=== PATIENT | female | born 1950 | race Caucasian/White ===

== ENCOUNTER → 2025-07-23 | Outpatient (CLI) | payer MEDICARE, SELFPAY ==
--- OUTSIDE RECORDS SUMMARY | 2025-07-23 20:03 | XMS RPT_ITS | CCD ---
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, Jemma Unavailable Benita Rivas PA-C Unavailable GANTA, MARK Attending Unavailable GANTA, MARK Primary Care Unavailable GANTA, MARK Attending Unavailable SELF Referring Unavailable GANTA, MARK Primary Care Unavailable GANTA, MARK Referring Unavailable GANTA, MARK Primary Care Unavailable GANTA, MARK Attending Unavailable GANTA, MARK Primary Care Unavailable GANTA, MARK Referring Unavailable GANTA, MARK Primary Care Unavailable GANTA, MARK Referring Unavailable GANTA, MARK Primary Care Unavailable OLEG ARGUELLES Attending Unavailable GANTA, MARK Referring Unavailable GANTA, MARK Primary Care Unavailable SELF Referring Unavailable GANTA, MARK Primary Care Unavailable GANTA, MARK Attending Unavailable SELF Referring Unavailable GANTA, MARK Primary Care Unavailable Allergies Allergy Classification Reported Allergen(s) Allergy Type Date of Onset Reaction(s) Facility (20 sources) Acetaminophen; Translations: [ACETAMINOPHEN] Drug Allergy 11-04-2010 Swelling [facility] Work Phone: Medications Current Medications Medication Drug Class(es) Dates Sig (Normalized) Sig (Original) alendronic acid 70 mg oral tablet (20 sources) Bisphosphonate Start: 11-24-2022 End: 01-15-2025 take 1 tablet by mouth every week alendronate (FOSAMAX) 70 mg tablet Indications: Age-related osteoporosis without current pathological fracture TAKE 1 TABLET BY MOUTH EVERY WEEK ON AN EMPTY STOMACH DO NOT LIE DOWN FOR 30MIN 12 tablet 3 01/15/2025 Active Start: 09-14-2021 End: 08-17-2022 take 1 tablet by mouth every week alendronate (FOSAMAX) 70 mg tablet TAKE 1 TABLET BY MOUTH EVERY WEEK ON AN EMPTY STOMACH DO NOT LIE DOWN FOR 30MIN 12 tablet 0 08/17/2022 Active Comment on above: TAKE 1 TABLET BY ANN TH ONCE A WEEK WITH FULL GLASS OF WATER ON EMPTY STOMACH. DON'T LIE DOWN FOR 30 MINUTES TAKE 1 TABLET BY ANN TH EVERY WEEK ON AN EMPTY STOMACH DO NOT LIE DOWN FOR 30MIN Ascorbic Acid (20 sources) Vitamin C ascorbic acid (V ROSIE-C ORAL) Take by mouth. Active ascorbic acid (V ROSIE-C ORAL) Take by mouth. 0 Active Comment on above: Take by mouth. aspirin 81 mg delayed release oral tablet (20 sources) Platelet Aggregation Inhibitor, Nonsteroidal Anti-inflammatory Drug Start: 6 take 1 tablet by mouth once daily aspirin, enteric coated (ASPIRIN, ENTERIC COATED) 81 mg EC tablet Take 1 tablet by mouth once daily. 0 11/14/2015 Active Comment on above: Take 1 tablet by ann once daily. doxycycline hyclate 100 mg oral tablet (2 sources) Tetracycline-class Drug Start: 3 End: 3 take 1 tablet by mouth twice daily doxycycline (VIBRA-TABS) 100 mg tablet Take 1 tablet by mouth twice daily for 14 days. 28 tablet 0 03/10/2023 03/24/2023 Active Start: 12-20-2022 End: 12-20-2022 take 2 capsules by mouth once doxycycline hyclate (VIB RAMYCIN) 100 mg capsule Indications: Tick bite, unspecified site, initial encounter Take 2 capsules by mouth one time only for 1 dose. 2 capsule 0 12/20/2022 12/20/2022 Active Comment on above: [facility] dose. Take 1 tablet by ann th twice daily for 14 days. [id number] tylcyst 1-50-2.5-25-50 mg cap (20 sources) Start: 10-01-2022 [id number] cetylcyst 1-50-2.5-25-50 mg cap Take by mouth once daily. 10/01/2022 Active Start: 10-01-2022 [id number]-KVT-[id number] 1-50-2.5-25-50 mg cap Take by mouth once daily. 0 10/01/2022 Active Comment on above: Take by mouth once d aily. fluticasone propionate 0.05 mg/actuat metered dose nasal spray (20 sources) Corticosteroid Start: 04-01-20 take 2 spray(s) by mouth once daily fluticasone (FLONASE) 50 mcg/actuation nasal spray Indications: Allergic rhinitis, unspecified seasonality, unspecified trigger Use 2 Sprays in each nostril once daily. Rinse mouth after use. 1 Each 5 04/01/2023 Active Comment on above: Use 2 Sprays in each nostril once daily. Rinse mouth after use. lisinopril 20 mg oral tablet (20 sources) Angiotensin Converting Enzyme Inhibitor Start: 10-06-19 End: 10-03-19 24 take 1 tablet by mouth once daily lisinopril (ZESTRIL) 20 mg tablet Indications: Essential hypertension Take 1 tablet by mouth once daily. 90 tablet 3 10/03/2023 Active Comment on above: Take 1 tablet by ann th once daily. metoprolol tartrate 25 mg oral tablet (20 sources) beta-Adrenergic Sharmin Start: 04-03-20 End: 06-13-20 take 1 tablet by mouth twice daily metoprolol tartrate, short acting, (LOPRESSOR) 25 mg tablet Take 1 tablet by mouth two times a day. 180 tablet 1 03/15/2025 06/13/2025 Active Start: 10-06-2021 End: 04-03-2024 take 1 tablet by mouth once daily metoprolol succinate ER (TOPROL XL) 25 mg 24 hr tablet Indications: Essential hypertension Take 1 tablet by mouth once daily. 90 tablet 3 04/01/2023 04/03/2024 Discontinued Comment on above: Take 1 tablet by ann th once daily. rosuvastatin calcium 10 mg oral tablet (20 sources) HMG-CoA Reductase Inhibitor Start: 2 End: 5 take 1 tablet by mouth once daily at bedtime rosuvastatin (CRESTOR) 10 mg tablet Indications: Mixed hyperlipidemia Take 1 tablet by mouth daily at bedtime. 90 tablet 3 10/05/2024 Active Comment on above: TAKE 1 TABLET BY ANN TH EVERYDAY AT BEDTIME Take 1 tablet by ann th daily at bedtime. SELENIUM ORAL (20 sources) SELENIUM ORAL Ta ke by mouth. Active SELENIUM ORAL Ta ke by mouth. 0 Active Comment on above: Take by mouth. sulfamethoxazole 800 mg / trimethoprim 160 mg oral tablet (3 sources) Dihydrofolate Reductase Inhibitor Antibacterial, Sulfonamide Antimicrobial Start: 2 End: 2 take 1 tablet by mouth twice daily sulfamethoxazo le-trimethopri m (BACTRIM DS) 800-160 mg per tablet Take 1 tablet by mouth twice daily for 7 days. 14 tablet 0 02/10/2022 02/17/2022 Active Comment on above: Take 1 tablet by ann th twice daily for 7 days. Zinc (20 sources) Start: 2 take 1 tablet by mouth once daily Zinc 50 mg tab Take 1 tablet by mouth once daily. 10/06/2021 Active Start: 10-06-2021 take 1 tablet by ann th once daily Zinc 50 mg tab Take 1 tablet by mouth once daily. 0 10/06/2021 Active Comment on above: Take 1 tablet by ann th once daily. Completed/Discontinued Medications Medication Drug Class(es) Dates Sig (Normalized) Sig (Original) docusate sodium 100 mg oral tablet (20 sources) Start: 11-14-2015 End: 01-29-2025 take 1 tablet by mouth once daily Docusate Sodium 100 mg tab Take 100 mg by mouth once daily. 0 11/14/2015 01/29/2025 Discontinued Comment on above: Take 100 mg by mouth once daily. gpgvl-fx-9-dha-epa -phospho-ast (MEGARED OMEGA-3 KRILL OIL) 1,000-230-60 mg cap (12 sources) Start: 11-14-2015 take 3 capsules by mouth once daily fabxi-eh-9-dha-epa- phospho-ast (MEGARED OMEGA-3 KRILL OIL) 1,000-230-60 mg cap Take 60 mg by mouth once daily. 0 11/14/2015 Active Comment on above: Take 60 mg by mouth once daily. ghgyr-bm-4-dha-epa -phospho-ast 1,000-230-60 mg cap (5 sources) Start: 11-14-2015 End: 04-01-2023 take 1 capsule by mouth once daily hhjei-eq-3-dha-epa- phospho-ast 1,000-230-60 mg cap Take 60 mg by mouth once daily. 0 11/14/2015 04/01/2023 Discontinued Start: 11-14-2015 take 1 capsule by mouth once daily nlmbs-lk-3-ctq-vvn-qgztvcx-ast 1,000-230 -60 mg cap Take 60 mg by mouth once daily. 0 11/14/2015 Active Comment on above: Take 60 mg by mouth once daily. Magnesium (17 sources) Start: 11-14-2015 End: 04-01-2023 Magnesium 200 mg tab Take 250 mg by mouth. 0 11/14/2015 04/01/2023 Discontinued Start: 11-14-2015 Magnesium 200 mg tab Take 250 mg by mouth. 0 11/14/2015 Active Comment on above: Take 250 mg by mouth . 24 hr niacin 500 mg extended release oral tablet (20 sources) Nicotinic Acid Start: 11-14-2015 End: 01-15-2025 take 1 tablet by mouth once daily at bedtime niacin ER (NIASPAN) 500 mg tablet Take 1 tablet by mouth daily at bedtime. 0 11/14/2015 01/15/2025 Discontinued Comment on above: Take 1 tablet by ann th daily at bedtime. psyllium (KONSYL) packet (20 sources) Start: 11-14-2015 End: 01-29-2025 take 1 dose by mouth once daily psyllium (KONSYL) packet Take 1 Packet by mouth once daily. 0 11/14/2015 01/29/2025 Discontinued Start: 11-14-2015 take 1 dose by mouth once verito y psyllium (KONSYL) packet Take 1 Packet by mouth once daily. 0 11/14/2015 Active Comment on above: Take 1 Packet by ann th once daily. red yeast rice 600 mg oral capsule (20 sources) Start: 11-14-2015 End: 01-15-2025 take 1 capsule by mouth once daily Red Yeast Rice Extract 600 mg cap Take 1 capsule by mouth once daily. 0 11/14/2015 01/15/2025 Discontinued Comment on above: Take 1 capsule by mo [facility] once daily. Zinc Acetate (17 sources) End: 04-01-2023 ZINC ACETATE ORAL Take by mouth. 0 04/01/2023 Discontinued ZINC ACETATE ORA L Take by mouth. 0 Active Comment on above: Take by mouth. Problems Active Problems Problem Classification Problem Date Documented Da te Episodic/Chronic Diseases of mouth; excluding dental (1 source) Geographic tongue; Translations: [Geographic tongue] 03-10-2023 Episodic Disorders of lipid metabolism (20 sources) Mixed hyperlipidemia; Translations: [Mixed hyperlipidemia] Onset: 06-10-2018 06-10-2018 Chronic E Codes: Natural/environment (1 source) Tick bite; Translations: [Bitten or stung by nonvenomous insect and other nonvenomous arthropods, initial encounter] Episodic Essential hypertension (20 sources) Essential hypertension; Translations: [Essential (primary) hypertension] Onset: 11-14-2015 11-14-2015 Chronic Genitourinary symptoms and ill-defined conditions (2 sources) Dysuria; Translations: [Dysuria] Episodic Nutritional deficiencies (3 sources) Vitamin D deficiency; Translations: [Vitamin D deficiency, unspecified] Onset: 01-07-2025 07-16-2024 Chronic Osteoarthritis (19 sources) Osteoarthritis of knee; Translations: [Osteoarthritis of knee, unspecified] Onset: 05-01-2024 05-01-2024 Chronic Osteoporosis (20 sources) Osteoporosis; Translations: [Age-related osteoporosis without current pathological fracture] Onset: 02-28-2017 Resolved: 04-01-2023 02-28-2017 Chronic Other bone disease and musculoskeletal deformities (20 sources) Osteopenia; Translations: [Other specified disorders of bone density and structure, multiple sites] Onset: 04-01-2023 04-01-2023 Episodic Other bone disease and musculoskeletal deformities (1 source) Other specified disorders of bone density and structure, unspecified site; Translations: [Osteopenia, unspecified location] Onset: 04-17-2025 Episodic Other gastrointestinal disorders (1 source) Constipation; Translations: [Constipation, unspecified] 10-03-2023 Episodic Other hereditary and degenerative nervous system conditions (1 source) Impaired cognition; Translations: [Mild cognitive impairment, so stated] 04-17-2025 Chronic Other hereditary and degenerative nervous system conditions (1 source) Mild cognitive impairment, so stated; Translations: [Mild cognitive impairment] Onset: 04-17-2025 Chronic Other non-traumatic joint disorders (2 sources) Pain in left knee; Translations: [Pain in joint, lower leg] 04-03-2024 Episodic Other nutritional; endocrine; and metabolic disorders (4 sources) Hypercalcemia; Translations: [Hypercalcemia] 04-01-2023 Chronic Other screening for suspected conditions (not mental disorders or infectious disease) (7 sources) Patient encounter status; Translations: [Encounter for screening mammogram for malignant neoplasm of breast] Episodic Other skin disorders (1 source) Eruption; Translations: [Rash and other nonspecific skin eruption] 03-10-2023 Episodic Other upper respiratory disease (2 sources) Allergic rhinitis; Translations: [Allergic rhinitis, unspecified] 04-01-2023 Chronic Residual codes; unclassified (1 source) Sleep apnea; Translations: [Sleep apnea, unspecified] 04-17-2025 Chronic Residual codes; unclassified (1 source) Sleep apnea, unspecified; Translations: [Sleep apnea, unspecified type] Onset: 04-17-2025 Chronic Residual codes; unclassified (2 sources) Memory impairment; Translations: [Other amnesia] 07-16-2024 Episodic Residual codes; unclassified (1 source) At risk of polypharmacy; Translations: [Other specified personal risk factors, not elsewhere classified] 01-29-2025 Episodic Urinary tract infections (1 source) Urinary tract infectious disease; Translations: [Urinary tract infection, site not specified] Episodic Past or Other Problems Problem Classification Problem Date Documented Da te Episodic/Chronic Other non-traumatic joint disorders (14 sources) Shoulder pain; Translations: [Pain in left shoulder] Onset: 05-27-2016 05-27-2016 Episodic Other non-traumatic joint disorders (20 sources) Pain in left shoulder; Translations: [Pain in joint, shoulder region] Onset: 05-27-2016 05-27-2016 Episodic Residual codes; unclassified (1 source) Other specified personal risk factors, not elsewhere classified; Translations: [At risk for polypharmacy] Onset: 01-29-2025 Episodic Results Test Name Value Interpretation Reference Range Facility BD DXA - AXIAL SKELETONon BD DXA - AXIAL SKELETON * * *Final Report* * * DATE OF EXAM: May 09 2025 9:21AM WRB [id number] - DXA - AXIAL SKELETON B / PROCEDURE REASON: M85.80 * * * * Physician Interpretation * * * * EXAMINATION: DXA BONE DENSITOMETRY BD DXA - AXIAL SKELETON, BD DXA TRABECLR BONE SCORE (TBS) PATIENT DEMOGRAPHICS: Age: 75 years, Gender: Female SCANNER INFORMATION: DXA Model: [employer] - VUELOGIC C 19229 Date Scanned: 05/09/2025 9:21 AM CLINICAL HISTORY: DIAGNOSTIC M85.80. RISK FACTORS FOR OSTEOPOROSIS AND ASSOCIATED FRACTURES REPORTED BY THIS PATIENT: Please refer to Bone Health Questionnaire in the EMR CURRENT THERAPY: Please refer to Bone Health Questionnaire in the EMR TECHNICAL LIMITATIONS: RESULTS: Lumbar spine (L1, L2, L3, L4): 0.805 g/cm2, T-score -2.2 , Z-score 0.3 Lumbar spine: 2022 : 0.799 g/cm2 No statistically significant change Right Femoral Neck: 0.528 g/cm2, T-score -2.9 , Z-score -0.7 Right Femoral Neck: 2022 : 0.587 g/cm2 Statistically significant decrease Right Total Hip: 0.662 g/cm2, T-score -2.3 , Z-score -0.4 Right Total Hip: 2022 : 0.682 g/cm2 No statistically significant change Left Femoral Neck: 0.587 g/cm2, T-score -2.4 , Z-score -0.2 Left Femoral Neck: 2022 : 0.605 g/cm2 No statistically significant change Left Total Hip: 0.689 g/cm2, T-score -2.1 , Z-score -0.2 Left Total Hip: 2022 : 0.722 g/cm2 No statistically significant change CHANGE IS STATISTICALLY SIGNIFICANT IN THE SPINE OR HIP IF GREATER THAN OR EQUAL TO 0.04 g/cm2 VERTEBRAL FRACTURE ASSESSMENT Not performed. TRABECULAR BONE ASSESSMENT TBS score: 1.313 Bone micro-architecture: Normal (> 1.310) IMPRESSION: THE LOWEST T-SCORE IS -2.9 IN THE RIGHT HIP 1) DIAGNOSIS (based on BMD alone): OSTEOPOROSIS Caution: Medical conditions other than osteoporosis may cause low bone density, such as osteomalacia or renal osteodystrophy. Clinical correlation is necessary. 2) FRACTURE RISK (Based on TBS adjusted FRAX): 10-year absolute fracture risk: - major osteoporotic fracture = 19 % - hip fracture = 7.2 % - A diagnosis of Osteoporosis, a 10 year probability of hip fracture greater than or equal to 3% or a 10 year probability of any major osteoporosis-related fracture greater than or equal to 20% should be considered for treatment. - DXA scanner generated FRAX calculations may slightly differ from online FRAX calculations due to differences in software versions. - All recommendations and calculations are to be considered as guidelines and should not replace sound clinical judgement - Caution: Fracture risk may be increased independent of BMD in patients with corticosteroid use, age greater than 65 years, or a history of prior fragility fracture. RECOMMENDATIONS: Follow-up in 2 years or as clinically indicated. Patients that are taking corticosteroids, are transplant recipients or have hyperparathyroidism should have annual follow-up. Follow-up scans should always be done on the same machine for accurate comparison. FOR MORE INFORMATION ABOUT DIAGNOSIS AND TREATMENT: [facility]:? www.ccf.org/arthritis/ osteo National Osteoporosis Foundation:? www.nof.org International Society of Clinical Densitometry www.iscd.org Fur Matcher: FAMILIA Transcribe Date/Time: May 12 2025 5:40P Dictated by : MICHELLE WERNER MD This examination was interpreted and the report reviewed and electronically signed by: MICHELLE WERNER MD on May 12 2025 5:45PM EST [id number] Normal [facility] BD DXA TRABECLR BONE SCORE ( TBS)on 05-09-2025 BD DXA TRABECLR BONE SCORE (TBS) * * *Final Report* * * DATE OF EXAM: May 09 2025 9:21AM B 0801 - BD DXA TRABECLR BONE SCORE (TBS) / PROCEDURE REASON: M85.80 * * * * Physician Interpretation * * * * EXAMINATION: DXA BONE DENSITOMETRY BD DXA - AXIAL SKELETON, BD DXA TRABECLR BONE SCORE (TBS) PATIENT DEMOGRAPHICS: Age: 75 years, Gender: Female SCANNER INFORMATION: DXA Model: [employer] - VUELOGIC C 48066 Date Scanned: 05/09/2025 9:21 AM CLINICAL HISTORY: DIAGNOSTIC M85.80. RISK FACTORS FOR OSTEOPOROSIS AND ASSOCIATED FRACTURES REPORTED BY THIS PATIENT: Please refer to Bone Health Questionnaire in the EMR CURRENT THERAPY: Please refer to Bone Health Questionnaire in the EMR TECHNICAL LIMITATIONS: RESULTS: Lumbar spine (L1, L2, L3, L4): 0.805 g/cm2, T-score -2.2 , Z-score 0.3 Lumbar spine: 2022 : 0.799 g/cm2 No statistically significant change Right Femoral Neck: 0.528 g/cm2, T-score -2.9 , Z-score -0.7 Right Femoral Neck: 2022 : 0.587 g/cm2 Statistically significant decrease Right Total Hip: 0.662 g/cm2, T-score -2.3 , Z-score -0.4 Right Total Hip: 2022 : 0.682 g/cm2 No statistically significant change Left Femoral Neck: 0.587 g/cm2, T-score -2.4 , Z-score -0.2 Left Femoral Neck: 2022 : 0.605 g/cm2 No statistically significant change Left Total Hip: 0.689 g/cm2, T-score -2.1 , Z-score -0.2 Left Total Hip: 2022 : 0.722 g/cm2 No statistically significant change CHANGE IS STATISTICALLY SIGNIFICANT IN THE SPINE OR HIP IF GREATER THAN OR EQUAL TO 0.04 g/cm2 VERTEBRAL FRACTURE ASSESSMENT Not performed. TRABECULAR BONE ASSESSMENT TBS score: 1.313 Bone micro-architecture: Normal (> 1.310) IMPRESSION: THE LOWEST T-SCORE IS -2.9 IN THE RIGHT HIP 1) DIAGNOSIS (based on BMD alone): OSTEOPOROSIS Caution: Medical conditions other than osteoporosis may cause low bone density, such as osteomalacia or renal osteodystrophy. Clinical correlation is necessary. 2) FRACTURE RISK (Based on TBS adjusted FRAX): 10-year absolute fracture risk: - major osteoporotic fracture = 19 % - hip fracture = 7.2 % - A diagnosis of Osteoporosis, a 10 year probability of hip fracture greater than or equal to 3% or a 10 year probability of any major osteoporosis-related fracture greater than or equal to 20% should be considered for treatment. - DXA scanner generated FRAX calculations may slightly differ from online FRAX calculations due to differences in software versions. - All recommendations and calculations are to be considered as guidelines and should not replace sound clinical judgement - Caution: Fracture risk may be increased independent of BMD in patients with corticosteroid use, age greater than 65 years, or a history of prior fragility fracture. RECOMMENDATIONS: Follow-up in 2 years or as clinically indicated. Patients that are taking corticosteroids, are transplant recipients or have hyperparathyroidism should have annual follow-up. Follow-up scans should always be done on the same machine for accurate comparison. FOR MORE INFORMATION ABOUT DIAGNOSIS AND TREATMENT: [facility] Disease:? www.ccf.org/arthritis/ osteo National Osteoporosis Foundation:? www.nof.org International Society of Clinical Densitometry www.iscd.org Fur Matcher: FAMILIA Transcribe Date/Time: May 12 2025 5:40P Dictated by : MICHELLE WERNER MD This examination was interpreted and the report reviewed and electronically signed by: MICHELLE WERNER MD on May 12 2025 5:45PM EST [id number] -[id number] Normal [facility] CNOVon 04-17-2025 CNOV Office Visit (GERIWR ) ERINN BENSON ([id number]) 1950 F Date Time Provider Department 04/17/25 1:30 PM MARK YEAGER During your visit today, we recorded the following information about you: Pulse Respiration Blood pressure Weight Normal [facility] CNOVon 01-29-2025 CNOV Office Visit (INTMWS ) ERINN BENSON ([id number]) 1950 F Date Time Provider Department 01/29/25 8:20 AM MARK YEAGER During your visit today, we recorded the following information about you: Pulse Respiration Blood pressure 64/minute 16/minute 135/79 Mark Yeager MD 01/29/2025 8:38 AM Signed We discussed your medications and supplements: - You are currently taking the following medications: - Crestor 10 mg daily. Please ensure you are using the correct, updated bottle for this medication. - Metoprolol 25 mg twice daily. You will now take this twice a day instead of once a day. - Lisinopril 20 mg daily. Continue taking this as prescribed. - Alendronate 70 mg once weekly. Continue taking this as prescribed. - Supplements: - CoQ10 100 mg daily: Continue as is. - Magnesium glycinate 300 mg: Shift this to nighttime, as it may help with sleep. - B-complex, Vitamin C, and Vitamin D daily: Continue as is. - Zinc: You are taking two sources of zinc. Ensure the total amount is appropriate and continue as is. - Calcium and turmeric/curcumin: Continue as is. - You have discontinued the following: - Docusate (stool softener) and psyllium husk. You are using Miralax instead for bowel regularity. We discussed medication organization: - Please separate old or duplicate medication bottles from your current medications to avoid confusion. Discard old bottles when you return home. We discussed prescription refills: - If you are 10 days to 2 weeks away from running out of any medication, please call our office, and we will send in your refills promptly. No additional follow-up or testing was discussed during this visit. Please contact our office if you have any further questions or concerns. Mark Yeager MD 01/29/2025 11:11 AM Signed Reason for Visit Follow up HPI Fabienne Benson is a 75-year-old female presenting for medication reconciliation and adherence check. Fabienne has been taking Crestor 10 mg daily for the past couple of years, but has been transferring new medications into old bottles. She is also taking metoprolol 25 mg twice daily, lisinopril 20 mg daily, and alendronate 70 mg once a week. She was previously taking metoprolol 25 mg once daily, but has recently increased to twice daily. She is not taking docusate or psyllium husk, but is using Miralax. She is also taking several supplements, including CoQ10 100 mg, magnesium glycinate 300 mg at night, B-complex, vitamin C, vitamin D daily, calcium, zinc, turmeric, and curcumin. She is taking two different zinc supplements, one of which contains a small amount of zinc. She has been taking magnesium glycinate in the morning, but was advised to take it at night to help with sleep. Social History Tobacco Use Smoking status: Never Smokeless tobacco: Never Substance Use Topics Alcohol use: No Drug use: No Past medical history, appointments, medications, allergies reviewed. Pertinent Lab/Diagnostic Studies are reviewed and discussed today Current Outpatient Medications: alendronate (FOSAMAX) 70 mg tablet rosuvastatin (CRESTOR) 10 mg tablet metoprolol tartrate, short acting, (LOPRESSOR) 25 mg tablet lisinopril (ZESTRIL) 20 mg tablet fluticasone (FLONASE) 50 mcg/actuation nasal spray [id number] etylcyst 1-50-2.5-25-50 mg cap Zinc 50 mg tab ascorbic acid (CODY-C ORAL) SELENIUM ORAL aspirin, enteric coated (ASPIRIN, ENTERIC COATED) 81 mg EC tablet Health Maintenance DTaP,Tdap,Td Vaccine(1 - Tdap) BP Controlled (<130/80) Advance Directive Discussion@ Review Of Systems Physical Exam BP 135/79 Pulse 64 Resp 16 GENERAL: NAD, alert and oriented SKIN: unremarkable, no rash or skin lesions. HEAD: normocephalic EYES: PERRLA, EOMI, conjunctiva clear LUNGS: Clear to auscultation bilaterally, no wheezes/rhonchi/rales. HEART: Regular rate and rhythm, no murmurs. No ectopy. EXTREMITIES: Normal, No deformities, No skin discoloration, No edema. NEURO: Awake, alert and oriented x3, cranial nerves II-XII grossly intact, normal gait, no involuntary motions Assessment and Plan 1. At risk for polypharmacy (Z91.89) Patient is taking multiple medications including Crestor 10 mg daily, metoprolol 25 mg BID, lisinopril 20 mg daily, and alendronate 70 mg weekly. Additionally, patient is taking several supplements including CoQ10 100 mg, magnesium glycinate 300 mg, B-complex, vitamin C, vitamin D, calcium, zinc, turmeric, and curcumin. Patient was previously taking docusate and psyllium husk but has discontinued these and is now using Miralax. - Educated patient on the importance of medication adherence and proper storage of medications. - Advised patient to discard old medication bottles to avoid confusion. - Recommended taking magnesium glycinate at night to aid sleep. - Instructed patient to (more content not included)... Normal [facility] CNOVon 01-15-2025 CNOV Office Visit (INTMWS ) JESSICAERINN ([id number]) 1950 F Date Time Provider Department 01/15/25 8:40 AM MARK YEAGER INTMWS During your visit today, we recorded the following information about you: Pulse Blood pressure Weight Height 64/minute 143/85 72 kg 1.702 m Mark Yeager MD 01/15/2025 8:55 AM Addendum BONE MINERAL DENSITY PATIENT INSTRUCTIONS Bone mineral density testing measures the amount of calcium in certain parts of your bones. This information determines how strong your bones are. The test is used to detect osteoporosis, a disease in which the bone's mineral content and density are low, increasing a person's risk of fractures. The lumbar spine (lower back) and the hip are the skeletal sites usually examined. For the test, remember that: 1. You cannot take this test if you are . 2. Eat a normal diet on the day of the test. 3. Take your medications as you normally would. 4. DO NOT take calcium supplements (such as Tums) for 24 hours before the test. 5. On the day of the test, leave valuables (jewelry or credit cards) at home. 6. The test should be performed prior to oral, rectal or IV contrast studies, or at least 7 days after any of these studies. For the test, you may be asked to wear a hospital gown. You will lie on your back, on a padded table, in a comfortable position. Generally, you can resume your usual activities immediately. Mark Yeager MD 01/15/2025 1:10 PM Signed Reason for Visit Follow up HPI Fabienne is a 75-year-old female with a history of osteoporosis, HTN, and HLD, presenting for follow-up. Fabienne reports that she has not been taking her weekly alendronate for the past couple of months due to running out of the medication. She expresses concern about the potential risk of fractures due to this lapse in medication adherence. She is unsure of the names of her medications but reports taking a cholesterol medication nightly and metoprolol in the morning, though she was unaware that she was supposed to take metoprolol BID. She denies taking niacin or red yeast rice extract. She is also taking lisinopril. She reports a recent weight increase, which she attributes to her enjoyment of food. She notes that her weight typically fluctuates with the seasons, increasing in the winter and decreasing in the summer. She remains physically active, engaging in regular walking and using a small trampoline for exercise, particularly during the summer months. She has not yet completed her living will or advance directives, despite receiving the necessary paperwork. She is scheduled for a memory assessment in approximately 3 months and expresses some apprehension about the evaluation, stating, Just don't try to tell me I'm losing my brains because I don't want to know about it. Social History Tobacco Use Smoking status: Never Smokeless tobacco: Never Substance Use Topics Alcohol use: No Drug use: No Past medical history, appointments, medications, allergies reviewed. Pertinent Lab/Diagnostic Studies are reviewed and discussed today Current Outpatient Medications: rosuvastatin (CRESTOR) 10 mg tablet metoprolol tartrate, short acting, (LOPRESSOR) 25 mg tablet lisinopril (ZESTRIL) 20 mg tablet fluticasone (FLONASE) 50 mcg/actuation nasal spray [id number] etylcyst 1-50-2.5-25-50 mg cap Zinc 50 mg tab ascorbic acid (CODY-C ORAL) aspirin, enteric coated (ASPIRIN, ENTERIC COATED) 81 mg EC tablet alendronate (FOSAMAX) 70 mg tablet SELENIUM ORAL Docusate Sodium 100 mg tab psyllium (KONSYL) packet Health Maintenance DTaP,Tdap,Td Vaccine(1 - Tdap) BP Controlled (<130/80) Advance Directive Discussion@ Review Of Systems No current subjective symptoms were explicitly reported during the encounter. No positive or negative symptoms were mentioned for any body system. Therefore, there are no ROS findings to list. Physical Exam BP 143/85 Pulse 64 Ht 170.2 cm (5' 7) Wt 72 kg (158 lb 11.7 oz) SpO2 98% BMI 24.86 kg/m? GENERAL: NAD, alert and oriented. SKIN: Unremarkable, no rash or skin lesions. HEAD: Normocephalic. EYES: PERRLA, EOMI, conjunctiva clear. EARS: External ears normal, canals clear, TM's normal. NOSE/SINUSES: Nares normal. Septum midline. OROPHARYNX: Lips, mucosa, and tongue normal, good dentition. No oral lesions noted. NECK: Supple, no lymphadenopathy, normal thyroid, no carotid bruits. LUNGS: Clear to auscultation bilaterally, no wheezes/rhonchi/rales. HEART: Regular rate and rhythm, no murmurs. No ectopy. EXTREMITIES: Normal, no deformities, no skin discoloration, no edema. NEURO: Awake, alert and oriented x3, cranial nerves II-XII grossly intact, normal gait, no involuntary motions. Labs: - eGFR: 77 - Vitamin D: 50s - Cholesterol: Normal - Blood c (more content not included)... Normal [facility] 25(OH)D3 [facility] 2024 25-hydroxyvitamin D3 [Mass/Vol] 56.8 ng/mL Normal 31.0-80.0 [facility] Comment on above: Order Comment: Speci men Type: BLOOD SPECIMENOrdering Facility: [facility] Address: [address] [place] [address] Result Comment: Clas sification of 25 [place] Vitamin D status: Deficiency/Insufficiency: < or = 30 ng/ml. Sufficiency/Optimal Levels: 31-80 ng/mL Toxicity: > 100 ng/mL. Test performed by chemiluminescent immunoassay. Performed By: #### 1 989-3 ####[facility] LABCLIA [id number] [place] [address] [place] CBC panel Auto (Bld)on 01-07 Erythrocyte distribution width (RBC) [Ratio] 13.2 % Normal 11.5-15.0 [facility] Comment on above: Order Comment: Speci men Type: BLOOD SPECIMENOrdering Facility: [facility] Address: [address] [place] [address] Performed By: #### 5 8410-2 ####[facility] LABCLIA [id number] [place] [address] [place] Hematocrit (Bld) [Volume fraction] 44.9 % Normal 36.0-46.0 [facility] Comment on above: Order Comment: Speci men Type: BLOOD SPECIMENOrdering Facility: [facility] Address: [address] [place] [address] Performed By: #### 5 8410-2 ####[facility] LABIA [id number] [place] [address] [place] Hemoglobin (Bld) [Mass/Vol] 14.5 g/dL Normal 11.5-15.5 [facility] Comment on above: Order Comment: Speci men Type: BLOOD SPECIMENOrdering Facility: [facility] Address: [address] [place] [address] Performed By: #### 5 8410-2 ####[facility] LABIA [id number] [place] [address] [place] MCH (RBC) [Entitic mass] 30.0 pg Normal 26.0-34.0 [facility] Comment on above: Order Comment: Speci men Type: BLOOD SPECIMENOrdering Facility: [facility] Address: [address] [place] [address] Performed By: #### 5 8410-2 ####[facility] LABIA [id number] [place] [address] [place] MCHC (RBC) [Mass/Vol] 32.3 g/dL Normal 30.5-36.0 [facility] Comment on above: Order Comment: Speci men Type: BLOOD SPECIMENOrdering Facility: [facility] Address: [address] [place] [address] Performed By: #### 5 8410-2 ####[facility] LABCLIA [id number] [place] [address] [place] MCV (RBC) [Entitic vol] 92.8 fL Normal 80.0-100.0 [facility] Comment on above: Order Comment: Speci men Type: BLOOD SPECIMENOrdering Facility: [facility] Address: [address] [place] [address] Performed By: #### 5 8410-2 ####[facility] LABCLIA [id number] [place] [address] [place] Nucleated RBC (Bld) [#/Vol] 10*3/uL Normal <0.01 [facility] Comment on above: Order Comment: Speci men Type: BLOOD SPECIMENOrdering Facility: [facility] Address: [address] [place] [address] Performed By: #### 5 8410-2 ####[facility] LABCLIA [id number] [place] [address] [place] Platelet mean volume (Bld) [Entitic vol] 10.6 fL Normal 9.0-12.7 [facility] Comment on above: Order Comment: Speci men Type: BLOOD SPECIMENOrdering Facility: [facility] Address: [address] [place] [address] Performed By: #### 5 8410-2 ####[facility] LABCLIA [id number] [place] [id number] [place] Platelets (Bld) [#/Vol] 262 10*3/uL Normal 150-400 [facility] Comment on above: Order Comment: Speci men Type: BLOOD SPECIMENOrdering Facility: [facility] Address: [address] [place] [address] Performed By: #### 5 8410-2 ####[facility] LABCLIA [id number] [address] [address] [place] RBC (Bld) [#/Vol] 4.84 10*6/uL Normal 3.90-5.20 [facility] Comment on above: Order Comment: Speci men Type: BLOOD SPECIMENOrdering Facility: [facility] Address: [address] [place] [address] Performed By: #### 5 8410-2 ####[facility] LABCLIA [id number] [address] [address] [place] WBC (Bld) [#/Vol] 7.94 10*3/uL Normal 3.70-11.00 [facility] Comment on above: Order Comment: Speci men Type: BLOOD SPECIMENOrdering Facility: [facility] Address: [address] [place] [address] Performed By: #### 5 8410-2 ####[facility] LABIA [id number] [place] [id number] [place] Comprehensive metabolic 2000 panelon 01-07-2025 Albumin [Mass/Vol] 4.2 g/dL Normal 3.9-4.9 [facility] Comment on above: Order Comment: Speci men Type: BLOOD SPECIMENOrdering Facility: [facility] Address: [address] [place], [place] [address] Performed By: #### 2 4331-1, 39396-4 ####[facility] LABIA [id number] [address] [address] [place] ALP [Catalytic activity/Vol] 82 U/L Normal 34-123 [facility] Comment on above: Order Comment: Speci men Type: BLOOD SPECIMENOrdering Facility: [facility] Address: [address] [place], [place] [address] Performed By: #### 2 4331-1, 74511-8 ####[facility] LABCLIA [id number] [place] [id number], [place] [address] [place] ALT [Catalytic activity/Vol] 16 U/L Normal 7-38 [facility] Comment on above: Order Comment: Speci men Type: BLOOD SPECIMENOrdering Facility: [facility] Address: [address] [place], [place] [address] Performed By: #### 2 4331-1, ####[facility] LABCLIA [id number] [facility] [address] [place] [address] [place] Anion gap [Moles/Vol] 11 mmol/L Normal 8-15 [facility] Comment on above: Order Comment: Speci men Type: BLOOD SPECIMENOrdering Facility: [facility] Address: [address] [place] [address] Performed By: #### 2 4331-1, ####[facility] LABCLIA [id number] [address], [facility] [address] [place] AST [Catalytic activity/Vol] 23 U/L Normal 13-35 [facility] Comment on above: Order Comment: Speci men Type: BLOOD SPECIMENOrdering Facility: [facility] Address: [address] [place], [place] [address] Performed By: #### 2 4331-1, ####[facility] LABCLIA [id number] [facility] [address] [place] [address] [place] Bilirubin [Mass/Vol] 0.5 mg/dL Normal 0.2-1.3 [facility] Comment on above: Order Comment: Speci men Type: BLOOD SPECIMENOrdering Facility: [facility] Address: [address] [place] [address] Performed By: #### 2 4331-1, ####[facility] LABCLIA [id number] [facility] [address] [place] [address] [place] Calcium [Mass/Vol] 10.2 mg/dL Normal 8.5-10.2 [facility] Comment on above: Order Comment: Speci men Type: BLOOD SPECIMENOrdering Facility: [facility] Address: [address] [place], [place] [address] Performed By: #### 2 4331-1, 54982-7 ####[facility] LABCLIA [id number] [address] [address] [place] Chloride [Moles/Vol] 103 mmol/L Normal 98-107 [facility] Comment on above: Order Comment: Speci men Type: BLOOD SPECIMENOrdering Facility: [facility] Address: [address] [place] [address] Performed By: #### 2 4331-1, ####[facility] LABIA [id number] [place] [address] [place] CO2 [Moles/Vol] 25 mmol/L Normal 22-30 [facility] Comment on above: Order Comment: Speci men Type: BLOOD SPECIMENOrdering Facility: [facility] Address: [address] [place] [address] Performed By: #### 2 4331-1, 18598-6 ####[facility] LABIA [id number] [place] [address] [place] Creatinine [Mass/Vol] 0.78 mg/dL Normal 0.58-0.96 [facility] Comment on above: Order Comment: Speci men Type: BLOOD SPECIMENOrdering Facility: [facility] Address: [address] [place] [address] Performed By: #### 2 4331-1, ####[facility] LABIA [id number] [place] [id number] [place] Creatinine and Glomerular filtration rate.predicted panel (S/P/Bld) 79 mL/min/1.73m??? Normal >=60 [facility] Comment on above: Order Comment: Speci men Type: BLOOD SPECIMENOrdering Facility: [facility] Address: [address] [place], [place] [address] Result Comment: Letty mated Glomerular Filtration Rate (eGFR) is calculated using the 2020 CKD-EPI creatinine equation. This equation utilizes serum creatinine, sex, and age as parameters. The creatinine assay has traceable calibration to isotope dilution-mass spectrometry. Refer to KDIGO guidelines for clinical interpretation. In patients with unstable renal function, e.g. those with acute kidney injury, the eGFR may not accurately reflect actual GFR. Performed By: #### 2 4331-1, 56698-0 ####[facility] LABIA [id number] [place] [address] [place] Glucose [Mass/Vol] 93 mg/dL Normal 74-99 [facility] Comment on above: Order Comment: Cora vasquez Type: BLOOD SPECIMENOrdering Facility: [facility] Address: [address] [place] [address] Result Comment: The [place] Diabetes Association (ADA) provides guidance for cutoff values for fasting glucose and random glucose. The ADA defines fasting as no caloric intake for at least 8 hours. Fasting plasma glucose results between 100 to 125 mg/dL indicate increased risk for diabetes (prediabetes). Fasting plasma glucose results greater than or equal to 126 mg/dL meet the criteria for diagnosis of diabetes. In the absence of unequivocal hyperglycemia, results should be confirmed by repeat testing. In a patient with classic symptoms of hyperglycemia or hyperglycemic crisis, random plasma glucose results greater than or equal to 200 mg/dL meet the criteria for diagnosis of diabetes. Reference: Standards of Medical Care in Diabetes 2016, [place] [employer] Association. Diabetes Care. 2016.39(Suppl 1). Performed By: #### 2 4331-, 84874-9 ####[facility] LABIA [id number] [address] [address] [place] Potassium [Moles/Vol] 4.7 mmol/L Normal 3.7-5.1 [facility] Comment on above: Order Comment: Cora vasquez Type: BLOOD SPECIMENOrdering Facility: [facility] Address: [address] [place] [address] Performed By: #### 2 4331-, 13530-2 ####[facility] LABCLIA [id number] [address] [place] [address] [place] Protein [Mass/Vol] 7.5 g/dL Normal 6.3-8.0 [facility] Comment on above: Order Comment: Speci men Type: BLOOD SPECIMENOrdering Facility: [facility] Address: [address] [place] [address] Performed By: #### 2 4331-1, 32414-9 ####[facility] LABCLIA [id number] [address], [facility] [address] [place] Sodium [Moles/Vol] 139 mmol/L Normal 136-144 [facility] Comment on above: Order Comment: Speci men Type: BLOOD SPECIMENOrdering Facility: [facility] Address: [address] [place] [address] Performed By: #### 2 4331-1, 30819-5 ####[facility] LABCLIA [id number] [address], [place] [address] [place] Urea nitrogen [Mass/Vol] 18 mg/dL Normal 7-21 [facility] Comment on above: Order Comment: Speci men Type: BLOOD SPECIMENOrdering Facility: [facility] Address: [address] [place] [address] Performed By: #### 2 4331-1, 23114-2 ####[facility] LABCLIA [id number] [address], [facility] [address] [place] Lipid 1996 panelon 5 Cholesterol [Mass/Vol] 156 mg/dL Normal <200 [facility] Comment on above: Order Comment: Speci men Type: BLOOD SPECIMENOrdering Facility: [facility] Address: [address] [place] [address] Result Comment: <200 mg/dL, Desirable 200-239 mg/dL, Borderline high >239 mg/dL, High Performed By: #### 2 4331-1, 15780-5 ####[facility] LABCLIA [id number] [place] [address] [facility] Cholesterol in HDL [Mass/Vol] 44 mg/dL Normal >39 [facility] Comment on above: Order Comment: Mikeareli vasquez Type: BLOOD SPECIMENOrdering Facility: [facility] Address: [address] [place] [address] Result Comment: 40-5 9 mg/dL, Acceptable >59 mg/dL, High: Negative risk factor for coronary heart disease <40 mg/dL, Low: Positive risk factor for coronary heart disease Performed By: #### 2 4331-1, ####[facility] LABCLIA [id number] [address] Cholesterol in LDL [Mass/Vol] 86 mg/dL Normal <100 [facility] Comment on above: Order Comment: Cora pedro Type: BLOOD SPECIMENOrdering Facility: [facility] Address: [address] [place] [address] Result Comment: <100 mg/dL, Optimal 100-129 mg/dL, Near optimal/above optimal 130-159 mg/dL, Borderline high 160-189 mg/dL, High >189 mg/dL, Very high Secondary prevention optimal LDL Cholesterol levels are recommended to be <70 mg/dL LDL cholesterol is calculated using the Abarca-NIH equation. Performed By: #### 2 4331-1, ####[facility] LABCLIA [id number] [place] [address] [facility] Cholesterol in LDL/Cholesterol in HDL [Mass ratio] 1.95 {ratio} Normal <2.54 [facility] Comment on above: Order Comment: Mikeareli vasquez Type: BLOOD SPECIMENOrdering Facility: [facility] Address: [address] [place] [address] Result Comment: Alfonzo sánchez: 1. National Cholesterol Education Program ATP III Guideline At-A-Glance Quick Desk Reference: National Heart, Lung, and Blood [place]. National Institutes of Health. 2001: NIH Publication No. 01-3305. 2. An International Atherosclerosis Society position paper: global recommendations for the management of dyslipidemia: executive summary, Atherosclerosis. 2014: 232(2):410-413. Performed By: #### 2 4331-1, ####[facility] LABCLIA [id number] [facility] [id number], [place] [address] [place] Cholesterol in VLDL [Mass/Vol] 23 mg/dL Normal <30 [facility] Comment on above: Order Comment: Speci men Type: BLOOD SPECIMENOrdering Facility: [facility] Address: [address] [place] [address] Performed By: #### 2 4331-1, ####[facility] LABCLIA [id number] [facility] [address] [place] [address] [place] Cholesterol non HDL [Mass/Vol] 112 mg/dL Normal <130 [facility] Comment on above: Order Comment: Speci men Type: BLOOD SPECIMENOrdering Facility: [facility] Address: [address] [place] [address] Result Comment: <130 mg/dL, Optimal 130-159 mg/dL, Near optimal/above optimal 160-189 mg/dL, Borderline high 190-219 mg/dL, High >219 mg/dL, Very high Secondary prevention optimal non HDL Cholesterol levels are recommended to be <100 mg/dL Performed By: #### 2 4331-1, ####[facility] LABCLIA [id number] [facility] [address] [place] [address] [place] Cholesterol.total/Ch olesterol in HDL [Mass ratio] 3.55 {ratio} Normal <5.10 [facility] Comment on above: Order Comment: Speci men Type: BLOOD SPECIMENOrdering Facility: [facility] Address: [address] [place] [address] Performed By: #### 2 4331-1, ####[facility] LABCLIA [id number] [facility] [address] [place] [address] [place] FASTING TIME 12 hrs Normal [facility] Comment on above: Order Comment: Speci men Type: BLOOD SPECIMENOrdering Facility: [facility] Address: [address] [place], [place] [address] [place] [id number] Performed By: #### 2 4331-1, 34403-8 ####[facility] LABCLIA [id number] [place] [address] [place] Triglyceride [Mass/Vol] 148 mg/dL Normal <150 [facility] Comment on above: Order Comment: Speci men Type: BLOOD SPECIMENOrdering Facility: [facility] Address: [address] [place] [address] Result Comment: <150 mg/dL, Normal 150-199 mg/dL, Borderline high 200-499 mg/dL, High >499 mg/dL, Very high Performed By: #### 2 4331-1, 62330-7 ####[facility] LABCLIA [id number] [place] [id number] [place] CNOVon 07-16-2024 CNOV Office Visit (INTMWS ) ERINN BENSON ([id number]) 1950 F Date Time Provider Department 07/16/24 8:00 AM MARK YEAGER INTMWS During your visit today, we recorded the following information about you: Pulse Respiration Blood pressure Weight 66/minute 16/minute 134/80 69 kg Mark Yeager MD 07/16/2024 8:49 AM Signed Erinn Hirschada is a 74 year old female here for a Medicare wellness visit. Medicare Health Risk Assessment General Health Good Exercise: Minutes/Day 30 mins Exercise: Days/Week Most everyday Alcohol: Daily Use No Alcohol: Drinks/Day No Alcohol: 6 or more drinks No Feel off balance No Concerns: Teeth/Dentures No Concerns: Sexual function Yes , very dry Troubled by feelings No Frequency: Eating healthy diet 60% of the time ADLs requiring help No Safety precautions in home/vehicle No trouble with driving Smoke, vape, chews tobacco No Difficulty hearing A little , does not have hearing aids Difficulty seeing Has a cataract surgery and seeing better Current Providers Specialists: I have reviewed specialist-related care of the patient in the medical record. Medical/Family history review Reviewed and updated problem list, medical/surgical/famil y/social history, medications, and allergies. Opioid use review Opioid Medications (last 90 days) No data to display Depression Screening Cognitive screening Mini Cog Score: 3 Cognitive screening reviewed and No further action needed (score 3-5). Functional Observation Was the patient's Timed Up AND Go test unsteady or >= 12 seconds? No Advance Care Planning Surrogate decision maker and/or advance care plan documented Measurements BP 134/80 Pulse 66 Resp 16 Wt 69 kg (152 lb 1.9 oz) BMI 23.82 kg/m? Assessment/Plan Medicare annual wellness visit, subsequent (Z00.00) - Counseled on healthy diet and regular exercise - Fall avoidance information provided - Personalized prevention plan provided Reason for Visit Patient presents with: Medicare Wellness Exam Erinn Benson is a 74 year old female who presents here today for Above Complaints.. Health Maintenance Depression Screening Anxiety Screening RSV Vaccine(1 - 1-dose 60+ series) DTaP,Tdap,Td Vaccine(1 - Tdap) Covid-19 Vaccine( season) Advance Directive Discussion HPI Erinn is a very pleasant 74-year-old with a past medical history of hypertension, hyperlipidemia, osteopenia of multiple sites, allergies. Osteopenia: she is on fosamax and is tolerating it well. No major side effects, she is taking calcium once a day, and vitamin d And she is doing the mini trampoline that she likes to use, and she walks her dogs. HTN: BP controlled today. It is on the lower side at 110/60, on metoprolol at 25 mgs long acting, her heart rate is 59 and she often feels tired, we will cut down and taper off as needed. Checks BP at home. Compliant with medications. Denies any chest pain, palpitations, SOB, swelling in the feet. Careful with diet to avoid salt, trying to eat more fruits and vegetables, exercises regularly HPL: Reviewed test results with patient , takes medications regularly , does not report side effects. Conscious to avoid red meats, full fat dairy and its by products. Exercising 3 to 5 times a week. Bradycardia today. Likely from the use of metoprolol which was started due to palpitations She has a daughter who would be her power of channel marketing specialist- Shefalifranco Johnson Knee pain: for the past 2/3 weeks she has been having trouble with walking due to pain in the left , lateral knee. Standing up does not hurt. Any type of weight bearing causes her to have pain. When the lateral meniscus is moved she has pain. 07/16/24: She had 3 sessions of Physical Therapy, in the past few months, is doing them and she is able to tolerate them, not only that she has found good benefit, ramirez that there is no pain every time she tries to walk. Still some discomfort when she lays down in bed. 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 She walks from one end of the house to the other end. Does have some memory issues but they are not too much. Not had trouble with apt, bill payments, decreased driving. She is not sure if her metoprolol is tartrate or succinate she will call with confirmation. Bp is normal today. No problem-specific Assessment AND Plan notes found for this encounter. PAST MEDICAL HISTORY Diagnosis Date HTN (hypertension) Hypercholesterolemia PAST SURGICAL HISTORY Procedure Laterality Date BREAST LUMPECTOMY HX left breast CORRECTION OF BUNION right foot HYSTERECTOMY HX FAMILY HISTORY Problem Relation Age of Onset Cancer Mother Heart Father Breast Cancer Sister Alzheimer's Disease Sister Social History Tobacco Use Smoking status: Never Smokeless tobacco: Never Substance Use Topics Alcohol use: No Drug us (more content not included)... Normal [facility] Guevara 07-16-2024 [facility] Telephone (DAVISWS) ERINN BENSON ([id number]) 1950 F Date Time Provider Department 07/16/24 JEMMA WERNER During your visit today, we recorded the following information about you: Cristel Barrow MA 07/16/2024 9:53 AM Signed Order for geriatrics pended for abnormal mini cog. Please file if agreeable. JOHANA Steve Joy, APRN.DAVE 07/16/2024 12:11 PM Signed Agree with recommendations and consult placed Thank you Jemma Werner APRN.WET END SUPERVISOR Allergies As of Date: 07/16/2024 Noted Allergy Reaction TYLENOL (ACETAMINOPHEN) 11/04/2010 7 - Swelling Date Reviewed: 07/16/2024 Reviewed by: Cristel Barrow MA - Fully Assessed Reason for Visit: Orders [681] Primary Visit Diagnosis:Memory deficits [R41.3] Order(s):CONSULT TO GERIATRICS [9012] Order #: [id number]: 1 FUTURE Prescriptions as of 07/16/2024 - metoprolol tartrate, short acting, (LOPRESSOR) 25 mg tablet Take 1 tablet by mouth two times a day. - alendronate (FOSAMAX) 70 mg tablet TAKE 1 TABLET BY MOUTH EVERY WEEK ON AN EMPTY STOMACH DO NOT LIE DOWN FOR 30MIN - lisinopril (ZESTRIL) 20 mg tablet Take 1 tablet by mouth once daily. - rosuvastatin (CRESTOR) 10 mg tablet Take 1 tablet by mouth daily at bedtime. - fluticasone (FLONASE) 50 mcg/actuation nasal spray Use 2 Sprays in each nostril once daily. Rinse mouth after use. - [id number] etylcyst 1-50-2.5-25-50 mg cap Take by mouth once daily. - Zinc 50 mg tab Take 1 tablet by mouth once daily. - ascorbic acid (CODY-C ORAL) Take by mouth. - SELENIUM ORAL Take by mouth. - aspirin, enteric coated (ASPIRIN, ENTERIC COATED) 81 mg EC tablet Take 1 tablet by mouth once daily. - Docusate Sodium 100 mg tab Take 100 mg by mouth once daily. - psyllium (KONSYL) packet Take 1 Packet by mouth once daily. - niacin ER (NIASPAN) 500 mg tablet Take 1 tablet by mouth daily at bedtime. - Red Yeast Rice Extract 600 mg cap Take 1 capsule by mouth once daily. Problem List As Of Date 07/16/2024 Noted Resolved Essential hypertension [I10] 11/14/2015 Left shoulder pain [M25.512] 05/27/2016 Osteoporosis without current pathological fract*02/28/2017 04/01/2023 Mixed hyperlipidemia [E78.2] 06/10/2018 Osteopenia of multiple sites [M85.89] 04/01/2023 Osteoarthritis of knee [M17.9] 05/01/2024 Encounter Status:Closed by CRISTEL BARROW on 07/16/24 [facility] CNTHERAPYon 05-29-2024 CNTHERAPY OT/PT/Speech Visit (PTWS) ERINN BENSON ([id number]) 1950 F Date Time Provider Department 05/29/24 7:45 AM OLEG ARGUELLES PTWS Date Time Provider Department [place] 05/29/2024 7:45 AM [id number], COREY PTWS Josse Short Reason for Visit: PT Discharge [752] Primary Visit Diagnosis:Osteoarthrit is of knee, unspecified laterality, unspecified osteoarthritis type [M17.9] Allergies As of Date: 05/29/2024 Noted Allergy Reaction TYLENOL (ACETAMINOPHEN) 11/04/2010 7 - Swelling Date Reviewed: 04/03/2024 Reviewed by: Cristel Barrow MA - Fully Assessed Prescriptions as of 05/29/2024 - metoprolol tartrate, short acting, (LOPRESSOR) 25 mg tablet Take 1 tablet by mouth two times a day. - alendronate (FOSAMAX) 70 mg tablet TAKE 1 TABLET BY MOUTH EVERY WEEK ON AN EMPTY STOMACH DO NOT LIE DOWN FOR 30MIN - lisinopril (ZESTRIL) 20 mg tablet Take 1 tablet by mouth once daily. - rosuvastatin (CRESTOR) 10 mg tablet Take 1 tablet by mouth daily at bedtime. - fluticasone (FLONASE) 50 mcg/actuation nasal spray Use 2 Sprays in each nostril once daily. Rinse mouth after use. - [id number] etylcyst 1-50-2.5-25-50 mg cap Take by mouth once daily. - Zinc 50 mg tab Take 1 tablet by mouth once daily. - ascorbic acid (CODY-C ORAL) Take by mouth. - SELENIUM ORAL Take by mouth. - aspirin, enteric coated (ASPIRIN, ENTERIC COATED) 81 mg EC tablet Take 1 tablet by mouth once daily. - Docusate Sodium 100 mg tab Take 100 mg by mouth once daily. - psyllium (KONSYL) packet Take 1 Packet by mouth once daily. - niacin ER (NIASPAN) 500 mg tablet Take 1 tablet by mouth daily at bedtime. - Red Yeast Rice Extract 600 mg cap Take 1 capsule by mouth once daily. Preschool Assistant Principal: Therapy (PT/OT/Speech/Resp) ID: [id number] 05/29/2024 8:13 AM Author: OLEG ARGUELLES Signed by OLEG ARGUELLES PT on 05/29/2024 at 8:13 AM Document text: Program_ID:[id number] Access Code: [email or web address] URL: [email or web address]/ Date: 05-29-2024 Prepared By: Oleg Arguelles Program Notes Exercises - Squat with Chair Touch - 1 x daily - 7 x weekly - 4 sets - 10 reps - Clam with Resistance - 1 x daily - 7 x weekly - 4 sets - 10 reps - Straight Leg Raise - 1 x daily - 7 x weekly - 4 sets - 10 reps - Supine Hip Adduction Isometric with Ball - 1 x daily - 7 x weekly - 4 sets - 10 reps - Supine Heel Slide - 1 x daily - 7 x weekly - 4 sets - 10 reps -- Normal [facility] THERAPY NTon 05-29-2024 THERAPY NT HNO ID: [id number] Author: OLEG ARGUELLES, PT Service: ? Author Type: Physical Therapist Type: Therapy (PT/OT/Speech/Resp) Filed: 05/29/2024 08:13 Note Text: Program_ID:[id number] Access Code: [email or web address] URL: [email or web address] [employer]/ Date: 05-29-2024 Prepared By: Oleg Arguelles Program Notes Exercises - Squat with Chair Touch - 1 x daily - 7 x weekly - 4 sets - 10 reps - Clam with Resistance - 1 x daily - 7 x weekly - 4 sets - 10 reps - Straight Leg Raise - 1 x daily - 7 x weekly - 4 sets - 10 reps - Supine Hip Adduction Isometric with Ball - 1 x daily - 7 x weekly - 4 sets - 10 reps - Supine Heel Slide - 1 x daily - 7 x weekly - 4 sets - 10 reps Normal [facility] CNTHERAPYon 05-22-2024 CNTHERAPY OT/PT/Speech Visit (PTWS) ERINN BENSON ([id number]) 1950 F Date Time Provider Department 05/22/24 8:00 AM RAKEL AHUMADA PTLUCIE Date Time Provider Department Center 05/22/2024 8:00 AM [id number], MARIAH PTLUCIE Short Reason for Visit: Physical Therapy [503] Primary Visit Diagnosis:Osteoarthrit is of knee, unspecified laterality, unspecified osteoarthritis type [M17.9] Allergies As of Date: 05/22/2024 Noted Allergy Reaction TYLENOL (ACETAMINOPHEN) 11/04/2010 7 - Swelling Date Reviewed: 04/03/2024 Reviewed by: Cristel Barrow MA - Fully Assessed Prescriptions as of 05/22/2024 - metoprolol tartrate, short acting, (LOPRESSOR) 25 mg tablet Take 1 tablet by mouth two times a day. - alendronate (FOSAMAX) 70 mg tablet TAKE 1 TABLET BY MOUTH EVERY WEEK ON AN EMPTY STOMACH DO NOT LIE DOWN FOR 30MIN - lisinopril (ZESTRIL) 20 mg tablet Take 1 tablet by mouth once daily. - rosuvastatin (CRESTOR) 10 mg tablet Take 1 tablet by mouth daily at bedtime. - fluticasone (FLONASE) 50 mcg/actuation nasal spray Use 2 Sprays in each nostril once daily. Rinse mouth after use. - [id number] etylcyst 1-50-2.5-25-50 mg cap Take by mouth once daily. - Zinc 50 mg tab Take 1 tablet by mouth once daily. - ascorbic acid (CODY-C ORAL) Take by mouth. - SELENIUM ORAL Take by mouth. - aspirin, enteric coated (ASPIRIN, ENTERIC COATED) 81 mg EC tablet Take 1 tablet by mouth once daily. - Docusate Sodium 100 mg tab Take 100 mg by mouth once daily. - psyllium (KONSYL) packet Take 1 Packet by mouth once daily. - niacin ER (NIASPAN) 500 mg tablet Take 1 tablet by mouth daily at bedtime. - Red Yeast Rice Extract 600 mg cap Take 1 capsule by mouth once daily. Preschool Assistant Principal: Therapy (PT/OT/Speech/Resp) ID: [id number] 05/22/2024 8:28 AM Author: RAKEL AHUMADA Signed by RAKEL AHUMADA SLOTS MANAGER on 05/22/2024 at 8:28 AM Document text: Program_ID:[id number] Access Code: [email or web address] URL: [email or web address]/ Date: 05-22-2024 Prepared By: Oleg Arguelles Program Notes Exercises - Active Straight Leg Raise with Quad Set - 1 x daily - 7 x weekly - 4 sets - 10 reps - Modified Sidelying Hip Abduction - 1 x daily - 7 x weekly - 4 sets - 10 reps - Long Sitting Quad Set with Towel Roll Under Heel - 1 x daily - 7 x weekly - 4 sets - 10 reps - Sit to Stand - 2 x daily - 7 x weekly - 2 sets - 10 reps - Seated Long Arc Quad - 2 x daily - 7 x weekly - 2 sets - 10 reps - Bent Knee Fallouts - 2 x daily - 7 x weekly - 2 sets - 10 reps - Supine Figure 4 Piriformis Stretch - 1 x daily - 7 x weekly - 1 sets - 3 reps - Supine Piriformis Stretch with Foot on Ground - 1 x daily - 7 x weekly - 1 sets - 3 reps -- Normal [facility] THERAPY NTon 05-22-2024 THERAPY NT HNO ID: [id number] Author: RAKEL AHUMADA PTA Service: ? Author Type: Tank Erector Type: Therapy (PT/OT/Speech/Resp) Filed: 05/22/2024 08:28 Note Text: Program_ID:[id number] Access Code: [email or web address] URL: [email or web address]/ Date: 05-22-2024 Prepared By: Oleg Arguelles Program Notes Exercises - Active Straight Leg Raise with Quad Set - 1 x daily - 7 x weekly - 4 sets - 10 reps - Modified Sidelying Hip Abduction - 1 x daily - 7 x weekly - 4 sets - 10 reps - Long Sitting Quad Set with Towel Roll Under Heel - 1 x daily - 7 x weekly - 4 sets - 10 reps - Sit to Stand - 2 x daily - 7 x weekly - 2 sets - 10 reps - Seated Long Arc Quad - 2 x daily - 7 x weekly - 2 sets - 10 reps - Bent Knee Fallouts - 2 x daily - 7 x weekly - 2 sets - 10 reps - Supine Figure 4 Piriformis Stretch - 1 x daily - 7 x weekly - 1 sets - 3 reps - Supine Piriformis Stretch with Foot on Ground - 1 x daily - 7 x weekly - 1 sets - 3 reps Normal [facility] CNTHERAPYon 05-15-2024 CNTHERAPY OT/PT/Speech Visit (PTWS) JESSICAERINN ([id number]) 1950 F Date Time Provider Department 05/15/24 8:00 AM RAKEL AHUMADA Date Time Provider Department [place] 05/15/2024 8:00 AM [id number] AHUMADA Reason for Visit: Physical Therapy [503] Primary Visit Diagnosis:Osteoarthrit is of knee, unspecified laterality, unspecified osteoarthritis type [M17.9] Allergies As of Date: 05/15/2024 Noted Allergy Reaction TYLENOL (ACETAMINOPHEN) 11/04/2010 7 - Swelling Date Reviewed: 04/03/2024 Reviewed by: Cristel Barrow MA - Fully Assessed Prescriptions as of 05/15/2024 - metoprolol tartrate, short acting, (LOPRESSOR) 25 mg tablet Take 1 tablet by mouth two times a day. - alendronate (FOSAMAX) 70 mg tablet TAKE 1 TABLET BY MOUTH EVERY WEEK ON AN EMPTY STOMACH DO NOT LIE DOWN FOR 30MIN - lisinopril (ZESTRIL) 20 mg tablet Take 1 tablet by mouth once daily. - rosuvastatin (CRESTOR) 10 mg tablet Take 1 tablet by mouth daily at bedtime. - fluticasone (FLONASE) 50 mcg/actuation nasal spray Use 2 Sprays in each nostril once daily. Rinse mouth after use. - [id number] etylcyst 1-50-2.5-25-50 mg cap Take by mouth once daily. - Zinc 50 mg tab Take 1 tablet by mouth once daily. - ascorbic acid (CODY-C ORAL) Take by mouth. - SELENIUM ORAL Take by mouth. - aspirin, enteric coated (ASPIRIN, ENTERIC COATED) 81 mg EC tablet Take 1 tablet by mouth once daily. - Docusate Sodium 100 mg tab Take 100 mg by mouth once daily. - psyllium (KONSYL) packet Take 1 Packet by mouth once daily. - niacin ER (NIASPAN) 500 mg tablet Take 1 tablet by mouth daily at bedtime. - Red Yeast Rice Extract 600 mg cap Take 1 capsule by mouth once daily. Preschool Assistant Principal: Therapy (PT/OT/Speech/Resp) ID: [id number] 05/15/2024 8:39 AM Author: RAKEL AHUMADA Signed by RAKEL AHUMADA SLOTS MANAGER on 05/15/2024 at 8:39 AM Document text: Program_ID:[id number] Access Code: [email or web address] URL: [email or web address]/ Date: 05-15-2024 Prepared By: Oleg Arguelles Program Notes Exercises - Active Straight Leg Raise with Quad Set - 1 x daily - 7 x weekly - 4 sets - 10 reps - Modified Sidelying Hip Abduction - 1 x daily - 7 x weekly - 4 sets - 10 reps - Long Sitting Quad Set with Towel Roll Under Heel - 1 x daily - 7 x weekly - 4 sets - 10 reps - Sit to Stand - 2 x daily - 7 x weekly - 2 sets - 10 reps - Seated Long Arc Quad - 2 x daily - 7 x weekly - 2 sets - 10 reps - Bent Knee Fallouts - 2 x daily - 7 x weekly - 2 sets - 10 reps -- Normal [facility] THERAPY NTon 05-15-2024 THERAPY NT HNO ID: [id number] Author: RAKEL AHUMADA PTA Service: ? Author Type: Tank Erector Type: Therapy (PT/OT/Speech/Resp) Filed: 05/15/2024 08:39 Note Text: Program_ID:[id number] Access Code: [email or web address] URL: [email or web address]/ Date: 05-15-2024 Prepared By: Oleg Arguelles Program Notes Exercises - Active Straight Leg Raise with Quad Set - 1 x daily - 7 x weekly - 4 sets - 10 reps - Modified Sidelying Hip Abduction - 1 x daily - 7 x weekly - 4 sets - 10 reps - Long Sitting Quad Set with Towel Roll Under Heel - 1 x daily - 7 x weekly - 4 sets - 10 reps - Sit to Stand - 2 x daily - 7 x weekly - 2 sets - 10 reps - Seated Long Arc Quad - 2 x daily - 7 x weekly - 2 sets - 10 reps - Bent Knee Fallouts - 2 x daily - 7 x weekly - 2 sets - 10 reps Normal [facility] CALCIUM, 24 HR URINEon 04-14 Calcium (24H U) [Mass/Time] 94.5 Low [facility] Interpretation and review of laboratory results Abnormal [facility] Period 24 hr [facility] Specimen volume (24H U) 2.625 L [facility] 25-hydroxyvitamin D3 [Mass/V ol]on 04-12-2024 Interpretation and review of laboratory results Normal [facility] The reference range interval was based on an analysis of samples from healthy adults and may not pertain to children from 0-18 years old. [facility] CALCIUM, TOTALon 04-12-2024 Calcium [Mass/Vol] 10.2 mg/dL 8.5 - 10. 2 mg/dL [facility] ESR Westergren method (Bld) [Velocity]on 04-12-2024 ESR (Bld) [Velocity] 10 mm/h [facility] Interpretation and review of laboratory results Normal [facility] No Panel Informationon 04-12 Interpretation and review of laboratory results Normal [facility] PTH INTACTon 04-12-2024 Parathyrin.intact [Mass/Vol] 44 pg/mL 15 - 65 pg/mL [facility] THYROID STIMULATING HORMONEo n 04-12-2024 TSH Qn 1.76 m[IU]/L [facility] TSH Qnon 04-12-2024 Interpretation and review of laboratory results Normal [facility] VITAMIN D 25 HYDROXYon 04-12 25-hydroxyvitamin D3 [Mass/Vol] 37.8 ng/mL 31.0 - 80.0 ng/mL [facility] Comment on above: Classification of 25 OH Vitamin D status: Deficiency/Insufficiency: < or = 30 ng/ml. Sufficiency/Optimal Levels: 31-80 ng/mL Toxicity: > 100 ng/mL. Test performed by chemiluminescent immunoassay. XR Knee - left 4 Viewson IMPRESSION: Mild osteoarthritis. Fur Matcher: FAMILIA Transcribe Date/Time: Apr 06 2024 11:59A Dictated by : JOSS URBAN MD This examination was interpreted and the report reviewed and electronically signed by: JOSS URBAN MD on Apr 06 2024 11:59AM EST DIVISION OF RADIOLOGY * * *Final Report* * * DATE OF EXAM: Apr 03 2024 10:37AM WOX 5202 - XR KNEE 4V AP/PA BOTH+LAT/SANG LT / PROCEDURE REASON: Acute pain of left knee * * * * Physician Interpretation * * * * EXAMINATION / TECHNIQUE: XR KNEE 4V AP/PA BOTH+LAT/SANG LT HISTORY: has bothered her off and on for awhile but is more persistant and pain lasting longer on lateral side of left knee no inj Acute pain of left knee COMPARISON: None RESULT: No acute fracture or malalignment. Mild medial and lateral compartment osteoarthritis. No joint effusion. DIVISION OF RADIOLOGY Provider, [facility] - 04/06/2024 * * *Final Report* * * DATE OF EXAM: Apr 03 2024 10:37AM WOX 5202 - XR KNEE 4V AP/PA BOTH+LAT/SANG LT / PROCEDURE REASON: Acute pain of left knee * * * * Physician Interpretation * * * * EXAMINATION / TECHNIQUE: XR KNEE 4V AP/PA BOTH+LAT/SANG LT HISTORY: has bothered her off and on for awhile but is more persistant and pain lasting longer on lateral side of left knee no inj Acute pain of left knee COMPARISON: None RESULT: No acute fracture or malalignment. Mild medial and lateral compartment osteoarthritis. No joint effusion. IMPRESSION IMPRESSION: Mild osteoarthritis. Fur Matcher: FAMILIA Transcribe Date/Time: Apr 06 2024 11:59A Dictated by : JOSS URBAN MD This examination was interpreted and the report reviewed and electronically signed by: JOSS URBAN MD on Apr 06 2024 11:59AM EST [facility] XR Knee - left 4 ViewsOrdere d By: Ccf Provider on 04-06-2024 [facility] XR Knee - left 4 Viewson Radiology Study observation (narrative) [facility] Calcium.ionized [Moles/Vol]o n 04-20-2023 Calcium.ionized (Bld) [Mass/Vol] 1.35 mmol/L High 1.08 - 1.30 mmol/L [facility] Calcium.ionized adjusted to pH 7.4 (Bld) [Moles/Vol] 1.30 mmol/L 1.08 - 1.30 mmol/L [facility] Basic metabolic 2000 panelon 04-01-2023 Anion gap [Moles/Vol] 16 mmol/L 9 - 18 mmol/L [facility] Calcium [Mass/Vol] 10.4 mg/dL High 8.5 - 10. 2 mg/dL [facility] Chloride [Moles/Vol] 101 mmol/L 97 - 10 5 mmol/L [facility] CO2 [Moles/Vol] 21 mmol/L Low 22 - 30 mmol/L [facility] Creatinine [Mass/Vol] 0.82 mg/dL 0.58 - 0.96 mg/dL [facility] Estimated Glomerular Filtration Rate 75 mL/min/1.73m >=60 mL/min/1.73m [facility] Glucose [Mass/Vol] 94 mg/dL 74 - 99 mg/dL [facility] Potassium [Moles/Vol] 4.9 mmol/L 3.7 - 5.1 mmol/L [facility] Sodium [Moles/Vol] 138 mmol/L 136 - 144 mmol/L [facility] Urea nitrogen [Mass/Vol] 18 mg/dL 7 - 21 mg/dL [facility] UA DIP, URINE (POC)on 2021 BILIRUBIN UA (POCT) Negative Negative [facility] CLARITY UA (POCT) Clear [facility] COLOR UA (POCT) Yellow [facility] GLUCOSE UA (POCT) Negative Negative mg/dL [facility] HEMOGLOBIN/BLOOD UA (POCT) Large Abnormal Negative [facility] KETONE UA (POCT) Negative Negative mg/dL [facility] LEUKOCYTES UA (POCT) Moderate Abnormal Negative [facility] NITRITE UA (POCT) Negative Negative [facility] PH UA (POCT) 6.5 4.5 - 8.0 [facility] Protein Ql (U) Negative Negative mg/dL [facility] SPECIFIC GRAVITY UA (POCT) 1.010 1.005 - 1.030 [facility] UROBILINOGEN UA (POCT) 0.2 E.U./dL Normal E.U./dL [facility] Urgent Care Visit Reporton 1 09-01-2020 Urgent Care Visit Report [facility] [address] [place] [address] 6 [place] [address] OFFICE VISIT Date of Service: 07/02/21 MR#: [id number] Acct: [id number] Name: Chris BENSON Rep #: [id number] : 1950 Provider: JIMI segal Age/Sex: 71/F Location: [facility] Status: Signed Intake Vital Signs 07/02/21 11:10 Height 5 ft 6 in Weight: 160 lb BMI 25.8 BP 144/84 H Blood Pressure Location Lt brachial Position Sitting Respiration 16 Pulse Source Monitor Temp 100.3 F H Temp Source Temporal Pulse Oximetry (%) 96 Oxygen Delivery Method room air Intake Visit Reasons: BODY ACHES,CONGESTION-2 NEG COVID TEST Allergies No Known Allergies Allergy (Unverified 07/02/21 11:11) Medications amoxicillin 875 mg-potassium clavulanate 125 mg tablet 1 tab PO BID #20 tab 07/02/21 [Rx Confirmed 07/02/21] benzonatate 200 mg capsule 200 mg PO TID PRN #30 cap 07/02/21 [Rx Confirmed 07/02/21] lisinopril 2.5 mg tablet 2.5 mg PO DAILY 07/02/21 [History Confirmed 07/02/21] metoprolol succinate 25 mg tablet,extended release 24 hr 25 mg PO DAILY 07/02/21 [History Confirmed 07/02/21] PFSH Medical History (Updated 07/02/21 @ 12:24 by Cosmo KRAUSE, PA) Acute bronchitis, unspecified Acute sinusitis, unspecified Body aches Hypertension Lab test negative for COVID-19 virus Surgical History (Updated 07/02/21 @ 11:12 by Nu Warren RN) H/O: hysterectomy HPI HPI Details: Chris BENSON, is a 71 F who presents to the office today for 4 day h/o fever (tmax 100.3f), cough, sob, LAND, myalgias, fatigue, congestion/ runny nose. No COVID19 vaccine to date. No COVID19 exposure for the last month. Advil and Alkaselzer to assist. Nonsmoker. No other c/o at this time. H/o HTN, DLD, Osteoprosis (currently on Metoprolol, Lisinopril, Crestor) ROS Const Constitutional: No other (as above) Exam Const General: cooperative, healthy appearing, uncomfortable and no acute distress Nutritional Appearance: average body habitus and well nourished Orientation: alert, awake and oriented x3 HENMT Head: normal to inspection Ears: hearing grossly normal bilaterally, external ears normal, TM's normal bilaterally and EAC's normal Nose: external nose normal, nares normal, septum normal and no nasal discharge Face and sinus: normal facial exam, face symmetric and sinus tenderness frontal and maxillary; not ethmoid Mouth: oral mucosae normal, lip normal, tongue normal and moist mucous membranes Throat: posterior oropharynx normal, tonsils normal, uvula midline and postnasal drainage (Scant purulent) Eyes General: appearance normal, both eyes and all related structures Neck Neck: normal visual inspection, full ROM, no lymphadenopathy, no meningeal signs and supple Neck mass: No Thyroid: thyroid normal Lymphatic: no lymphadenopathy noted Chest Chest palpation inspection: normal inspection of the chest Resp Effort Inspection: normal respiratory effort, able to speak in complete sentences, symmetric chest movement and cough Quality of cough: wet (Nonproductive in office today.) Auscultation: Bilateral: Clear to Auscultation Cardio Palpation: normal PMI Rate: regular rate Rhythm: regular rhythm Heart Sounds: S1 normal, S2 normal, no gallops, no murmurs and no rubs Pulses: radial pulses present GI Inspection: normal to inspection Palpation: soft and nontender Skin General: no rashes or lesions noted Neuro General: patient alert, patient awake, patient oriented x3 and gait normal Cognition: normal cognition Speech: speech normal Gait: normal gait Motor: muscle tone normal throughout Sensory Exam: no sensory deficits noted Psych Appearance: grossly normal Mental Status: mental status grossly normal Mood: congruent mood Affect: normal affect Speech and Movement: speech and movement normal Attitude: cooperative Thought Process: normal Thought Content: normal Judgment: judgment good Results POC SANTIAGO CoV-2 PCR POC SANTIAGO CoV-2 PCR Not Detected Last Edit by Nu Warren RN on 07/02/21 11:34 Negative for Influenza A and B Coding Level of Care Code Off vis,new,level 3 Diagnoses Acute bronchitis, unspecified J20.9 Acute sinusitis, unspecified J01.90 Lab test negative for COVID-19 virus Z20.822 Assessment and Plan Assessment and Plan (1) Acute bronchitis, unspecified: Status: Acute (2) Acute sinusitis, unspecified: Status: Acute (3) Lab test negative for COVID-19 virus: Status: Acute Plan - Cosmo KRAUSE, PA: Sil COVID-19 and influenza A/B test negative in office today. Lab results given to patient in office today. Augmentin as prescribed today. Supportive measures as instructed today including warm facial compresses/humidified air and cough/deep breathing exercises. Follow-up (more content not included)... Normal [facility] Vital Signs Date Time Vital Sign Value Performing Clinician Faci lity 04-17-2025 13:35-0400 Body mass index (BMI) [Ratio] 24.84 kg/m2 Mark Yeager MD Work Phone: [facility] 04-17-2025 13:35-0400 Body weight 71.94 kg Mark Yeager MD Work Phone: [facility] 04-17-2025 13:35-0400 Diastolic blood pressure 90 mm[Hg] Mark Yeager MD Work Phone: [facility] 04-17-2025 13:35-0400 Heart rate 61 /min Mark Yeager MD Work Phone: [facility] 04-17-2025 13:35-0400 Respiratory rate 16 /min Mark Yeager MD Work Phone: [facility] 04-17-2025 13:35-0400 Systolic blood pressure 160 mm[Hg] Mark Yeager MD Work Phone: [facility] 01-29-2025 08:42-0400 Diastolic blood pressure 79 mm[Hg] Mark Yeager MD Work Phone: [facility] 01-29-2025 08:42-0400 Heart rate 64 /min Mark Yeager MD Work Phone: [facility] 01-29-2025 08:42-0400 Respiratory rate 16 /min Mark Yeager MD Work Phone: [facility] 01-29-2025 08:42-0400 Systolic blood pressure 135 mm[Hg] Mark Yeager MD Work Phone: [facility] 01-15-2025 09:10-0400 Diastolic blood pressure 85 mm[Hg] Mark Yeager MD Work Phone: [facility] 01-15-2025 09:10-0400 Heart rate 64 /min Mark Yeager MD Work Phone: [facility] 01-15-2025 09:10-0400 Systolic blood pressure 143 mm[Hg] Mark Yeager MD Work Phone: [facility] 01-15-2025 08:30-0400 Body height 170.2 cm Mark Yeager MD Work Phone: [facility] 01-15-2025 08:30-0400 Body mass index (BMI) [Ratio] 24.86 kg/m2 Mark Yeager MD Work Phone: [facility] 01-15-2025 08:30-0400 Body weight 72 kg Mark Yeager MD Work Phone: [facility] 01-15-2025 08:30-0400 SaO2% (BldA) [Mass fraction] 98 % Mark Yeager MD Work Phone: [facility] 07-16-2024 08:01-0500 Body mass index (BMI) [Ratio] 23.82 kg/m2 Mark Yeager MD Work Phone: [facility] 07-16-2024 08:01-0500 Body weight 69 kg Mark Yeager MD Work Phone: [facility] 07-16-2024 08:01-0500 Diastolic blood pressure 80 mm[Hg] Mark Yeager MD Work Phone: [facility] 07-16-2024 08:01-0500 Heart rate 66 /min Mark Yeager MD Work Phone: [facility] 07-16-2024 08:01-0500 Respiratory rate 16 /min Mark Yeager MD Work Phone: [facility] 07-16-2024 08:01-0500 Systolic blood pressure 134 mm[Hg] Mark Yeager MD Work Phone: [facility] 04-03-2024 08:45-0400 Body mass index (BMI) [Ratio] 24.28 kg/m2 Mark Yeager MD Work Phone: [facility] 04-03-2024 08:45-0400 Body weight 70.31 kg Mark Yeager MD Work Phone: [facility] 04-03-2024 08:45-0400 Diastolic blood pressure 60 mm[Hg] Mark Yeager MD Work Phone: [facility] 04-03-2024 08:45-0400 Heart rate 59 /min Mark Yeager MD Work Phone: [facility] 04-03-2024 08:45-0400 Respiratory rate 16 /min Mark Yeager MD Work Phone: [facility] 04-03-2024 08:45-0400 Systolic blood pressure 110 mm[Hg] Mark Yeager MD Work Phone: [facility] 10-03-2023 07:30-0500 Body height 170.2 cm Cristel Denbow PA-C Work Phone: [facility] 10-03-2023 07:30-0500 Body temperature 98.29 [degF] Cristel Denbow PA-C Work Phone: [facility] 10-03-2023 07:30-0500 Body weight 67.13 kg Cristel Denbow PA-C Work Phone: [facility] 10-03-2023 07:30-0500 Diastolic blood pressure 64 mm[Hg] Cristel Denbow PA-C Work Phone: [facility] 10-03-2023 07:30-0500 Respiratory rate 12 /min Crsitel Denbow PA-C Work Phone: [facility] 10-03-2023 07:30-0500 Systolic blood pressure 112 mm[Hg] Cristel Denbow PA-C Work Phone: [facility] 04-01-2023 07:44-0400 Body weight 66.22 kg Cristel Denbow PA-C Work Phone: [facility] 04-01-2023 07:44-0400 Diastolic blood pressure 72 mm[Hg] Cristel Denbow PA-C Work Phone: [facility] 04-01-2023 07:44-0400 Heart rate 64 /min Cristel Denbow PA-C Work Phone: [facility] 04-01-2023 07:44-0400 Respiratory rate 16 /min Cristel Denbow PA-C Work Phone: [facility] 04-01-2023 07:44-0400 SaO2% (BldA) [Mass fraction] 97 % Cristel Denbow PA-C Work Phone: [facility] 04-01-2023 07:44-0400 Systolic blood pressure 128 mm[Hg] Cristel Denbow PA-C Work Phone: [facility] 03-10-2023 12:23-0400 Body temperature 98.01 [degF] Krislyn Aberegg PA Work Phone: [facility] 03-10-2023 12:23-0400 Body weight 67.59 kg Krislyn Aberegg PA Work Phone: [facility] 03-10-2023 12:23-0400 Diastolic blood pressure 72 mm[Hg] Krislyn Aberegg PA Work Phone: [facility] 03-10-2023 12:23-0400 Heart rate 86 /min Krislyn Aberegg PA Work Phone: [facility] 03-10-2023 12:23-0400 Respiratory rate 16 /min Krislyn Aberegg PA Work Phone: [facility] 03-10-2023 12:23-0400 SaO2% (BldA) [Mass fraction] 97 % Alee Ray PA Work Phone: [facility] 03-10-2023 12:23-0400 Systolic blood pressure 120 mm[Hg] Krislypatricia Aberegg PA Work Phone: [facility] 12-20-2022 13:16-0400 Body temperature 98.1 [degF] Sheryl Praisler-Wood AFTER [employer]CHO[employer] PROGRAM TEACHER.WET END SUPERVISOR Work Phone: [facility] 12-20-2022 13:16-0400 Body weight 69.76 kg Sheryl Praisler-Wood [employer] PROGRAM TEACHER.WET END SUPERVISOR Work Phone: [facility] 12-20-2022 13:16-0400 Diastolic blood pressure 94 mm[Hg] Sheryl Praisler-Wood [employer] SCHO[employer] PROGRAM TEACHER.WET END SUPERVISOR Work Phone: [facility] 12-20-2022 13:16-0400 Heart rate 69 /min Sheryl Praisler-Wood [employer] SCHO[employer] PROGRAM TEACHER.WET END SUPERVISOR Work Phone: [facility] 12-20-2022 13:16-0400 Respiratory rate 18 /min Sheryl Praisler-Wood AFTER SCHO[employer] PROGRAM TEACHER.WET END SUPERVISOR Work Phone: [facility] 12-20-2022 13:16-0400 SaO2% (BldA) [Mass fraction] 95 % Sheryl Praisler-Wood AFTER SCHO[employer] PROGRAM TEACHER.WET END SUPERVISOR Work Phone: [facility] 12-20-2022 13:16-0400 Systolic blood pressure 142 mm[Hg] Sheryl Praisler-Wood AFTER SCHO[employer] PROGRAM TEACHER.WET END SUPERVISOR Work Phone: [facility] 10-01-2022 09:54-0500 Body height 170.2 cm Mark Yeager MD Work Phone: [facility] 10-01-2022 09:54-0500 Body temperature 98.1 [degF] Mark Yeager MD Work Phone: [facility] 10-01-2022 09:54-0500 Body weight 68.04 kg Mark Yeager MD Work Phone: [facility] 10-01-2022 09:54-0500 Diastolic blood pressure 76 mm[Hg] Mark Yeager MD Work Phone: [facility] 10-01-2022 09:54-0500 Heart rate 65 /min Mark Yeager MD Work Phone: [facility] 10-01-2022 09:54-0500 Respiratory rate 12 /min Mark Yeager MD Work Phone: [facility] 10-01-2022 09:54-0500 SaO2% (BldA) [Mass fraction] 98 % Mark Yeager MD Work Phone: [facility] 10-01-2022 09:54-0500 Systolic blood pressure 126 mm[Hg] Mark Yeager MD Work Phone: [facility] 04-05-2022 08:18-0400 Body height 170.2 cm Mark Yeager MD Work Phone: [facility] 04-05-2022 08:18-0400 Body temperature 99 [degF] Mark Yeager MD Work Phone: [facility] 04-05-2022 08:18-0400 Body weight 70.76 kg Mark Yeager MD Work Phone: [facility] 04-05-2022 08:18-0400 Diastolic blood pressure 64 mm[Hg] Mark Yeager MD Work Phone: [facility] 04-05-2022 08:18-0400 Heart rate 75 /min Mark Yeager MD Work Phone: [facility] 04-05-2022 08:18-0400 Respiratory rate 12 /min Mark Yeager MD Work Phone: [facility] 04-05-2022 08:18-0400 SaO2% (BldA) [Mass fraction] 98 % Mark Yeager MD Work Phone: [facility] 04-05-2022 08:18-0400 Systolic blood pressure 110 mm[Hg] Mark Yeager MD Work Phone: [facility] 02-10-2022 17:41-0400 Body height 170.2 cm Mark Yeager MD Work Phone: [facility] 02-10-2022 17:41-0400 Body temperature 98.01 [degF] Mark Yeager MD Work Phone: [facility] 02-10-2022 17:41-0400 Body weight 71.22 kg Mark Yeager MD Work Phone: [facility] 02-10-2022 17:41-0400 Diastolic blood pressure 56 mm[Hg] Mark Yeager MD Work Phone: [facility] 02-10-2022 17:41-0400 Heart rate 83 /min Mark Yeager MD Work Phone: [facility] 02-10-2022 17:41-0400 Respiratory rate 12 /min Mark Yeager MD Work Phone: [facility] 02-10-2022 17:41-0400 SaO2% (BldA) [Mass fraction] 97 % Mark Yeager MD Work Phone: [facility] 02-10-2022 17:41-0400 Systolic blood pressure 108 mm[Hg] Mark Yeager MD Work Phone: [facility] Encounters Encounter Date Encounter Type Care Provider Facility Start: 05-09-2025 ambulatory SELF Facility:[facility] Start: 04-17-2025 End: 04-17-2025 Office consultation new/estab patient 80 min Mark Yeager MD Work Phone: Geriatrics Comment on above: Osteopenia, unspecif ied location (Primary Dx); Mild cognitive impairment; Sleep apnea, unspecified type; Essential hypertension Start: 04-17-2025 End: 04-17-2025 ambulatory MARK YEAGER Facility:[facility] Start: 03-14-2025 End: 03-15-2025 Refill Mark Yeager MD Work Phone: [facility] [place] Comment on above: Refill Request Start: 01-29-2025 End: 01-29-2025 Patient encounter procedure Mark Yeager MD Work Phone: [facility] [place] Comment on above: At risk for polyphar pranav (Primary Dx); Uncontrolled hypertension Start: 01-29-2025 End: 01-29-2025 ambulatory [facility] Facility:[facility] Start: 01-15-2025 End: 01-15-2025 Office outpatient visit 25 minutes Mark Yeager MD Work Phone: [facility] [place] Comment on above: Age-related osteopor osis without current pathological fracture (Primary Dx); Essential (primary) hypertension; Mixed hyperlipidemia Start: 01-15-2025 End: 01-15-2025 [facility] Facility:[facility] Start: 01-07-2025 End: 01-07-2025 ambulatory [facility] Facility:[facility] Start: 10-05-2024 End: 10-05-2024 Refill Mark Yeager MD Work Phone: [facility] [place] Comment on above: Refill Request Start: 07-16-2024 End: 07-16-2024 Telephone encounter Jemma Werner APRN.CNP Work Phone: [facility] [place] Comment on above: Orders Start: 07-16-2024 End: 07-16-2024 ambulatory [facility] Facility:[facility] Start: 07-16-2024 End: 07-16-2024 Office outpatient visit 15 minutes Mark Yeager MD Work Phone: [facility] [place] Comment on above: Medicare annual well ness visit, subsequent (Primary Dx); Essential hypertension; Mixed hyperlipidemia; Vitamin D deficiency; Memory deficits Start: 07-16-2024 End: 07-16-2024 Patient encounter procedure Mark Yeager MD Work Phone: [facility] Work Phone: Start: 05-29-2024 End: 05-29-2024 ambulatory [facility]guelles PT [facility] Comment on above: Osteoarthritis of kn ee, unspecified laterality, unspecified osteoarthritis type (Primary Dx) Start: 05-22-2024 End: 05-22-2024 ambulatory Rakel Ahumada SLOTS MANAGER Work Phone: [facility] Comment on above: Osteoarthritis of kn ee, unspecified laterality, unspecified osteoarthritis type (Primary Dx) Start: 05-15-2024 End: 05-15-2024 ambulatory Rakel Ahumada SLOTS MANAGER Work Phone: [facility] Comment on above: Osteoarthritis of kn ee, unspecified laterality, unspecified osteoarthritis type (Primary Dx) Start: 05-07-2024 End: 05-09-2024 Telephone encounter Mark Yeager MD Work Phone: [facility] [place] Comment on above: Results Start: 05-01-2024 End: 05-01-2024 ambulatory Oleg Markell PT Work Phone: [facility] Therapy Comment on above: Osteoarthritis of kn ee, unspecified laterality, unspecified osteoarthritis type Start: 04-03-2024 End: 10-30-2024 Telephone encounter Mark Yeager MD Work Phone: [facility] [place] Comment on above: Results Start: 04-03-2024 End: 04-03-2024 Subsequent hospital visit by physician [facility] Work Phone: Radiology Comment on above: Acute pain of left k nee [M25.562] Start: 04-03-2024 End: 04-03-2024 Office outpatient visit 25 minutes Mark Yeager MD Work Phone: [facility] [place] Comment on above: Essential hypertensi on (Primary Dx); Screening for depression; Encounter for screening examination for other mental health and behavioral disorders; Mixed hyperlipidemia; Osteopenia, unspecified location; Acute pain of left knee Start: 03-20-2024 ambulatory Mark Dunham Work Phone: Internal Medicine [place] [id number] Start: 10-19-2023 Telephone encounter Cristel Benz PA-C Work Phone: [facility] [place] Comment on above: Results Start: 10-03-2023 End: 10-03-2023 Patient encounter procedure Cristel Plummer PA-C Work Phone: [facility] [place] Comment on above: Essential hypertensi on (Primary Dx); Mixed hyperlipidemia; Osteopenia of multiple sites; Constipation, unspecified constipation type; Hypercalcemia Start: 09-20-2023 ambulatory Mark Dunham Work Phone: Internal [facility] [place] Start: 04-28-2023 Refill Cristel Plummer PA-C Work Phone: [facility] [place] Comment on above: Refill Request Start: 04-20-2023 Telephone encounter Cristel Benz PA-C Work Phone: [facility] [place] Comment on above: Results Start: 04-01-2023 End: 04-01-2023 Patient encounter procedure Cristel Plummer PA-C Work Phone: [facility] [place] Comment on above: Essential hypertensi on (Primary Dx); Mixed hyperlipidemia; Osteopenia of multiple sites; Serum calcium elevated; Allergic rhinitis, unspecified seasonality, unspecified trigger Start: 03-10-2023 End: 03-10-2023 Patient encounter procedure Alee Ray PA Work Phone: [facility] Comment on above: Erythema migrans (Pr imary Dx); Rash Start: 02-17-2023 Refill Jemma SuhWET END SUPERVISOR Work Phone: [facility] [place] Comment on above: Refill Request Start: 12-20-2022 Telephone encounter Mark marte MD Work Phone: [facility] [place] Comment on above: tick bite Start: 12-20-2022 End: 12-20-2022 Patient encounter procedure Sheryl Santiago APRN.WET END SUPERVISOR Work Phone: [facility] Comment on above: Tick bite, unspecifi ed site, initial encounter (Primary Dx) Start: 10-11-2022 Telephone encounter Jemma Werner APRN.WET END SUPERVISOR Work Phone: [facility] [place] Comment on above: Results Start: 10-08-2022 Telephone encounter Leyda gonsalves MD Work Phone: Mammography Comment on above: Mammogram Result Stephon l Back Start: 10-07-2022 Documentation procedure Mammog delta Coordinator [facility] Start: 10-07-2022 Letter encounter Mammography Coordinator [facility] Department Start: 10-07-2022 Telephone encounter Jemma Werner APRN.WET END SUPERVISOR Work Phone: [facility] [place] Comment on above: Results Start: 10-01-2022 End: 10-01-2022 Patient encounter procedure Mark Yeager MD Work Phone: [facility] [place] Comment on above: Osteoporosis, unspec ified osteoporosis type, unspecified pathological fracture presence (Primary Dx); Encounter for screening mammogram for malignant neoplasm of breast; Essential hypertension; Mixed hyperlipidemia; Osteoporosis without current pathological fracture, unspecified osteoporosis type Start: 09-14-2022 ambulatory Mark Dunham Work Phone: Internal [facility] Start: 09-01-2022 Refill Jemma Werner APRN .WET END SUPERVISOR Work Phone: [facility] [place] Comment on above: Refill Request Start: 08-17-2022 Refill Jemma Werner APRN .WET END SUPERVISOR Work Phone: [facility] [place] Comment on above: Refill Request Start: 04-05-2022 End: 04-05-2022 Patient encounter procedure Mark Yeager MD Work Phone: [facility] [place] Comment on above: Essential hypertensi on (Primary Dx); Dysuria; Age-related osteoporosis without current pathological fracture; Mixed hyperlipidemia Start: 03-24-2022 ambulatory Mark Dunham Work Phone: Internal [facility] Start: 02-10-2022 End: 02-10-2022 Patient encounter procedure Mark Yeager MD Work Phone: [facility] [place] Comment on above: Dysuria (Primary Dx) ; Urinary tract infection with hematuria, site unspecified Start: 02-10-2022 ambulatory Mark Dunham Work Phone: [facility] [place] Comment on above: Hematuria Procedures Date Procedure Procedure Detail Performing Clinician Start: 04-14-2024 Calcium urine quanti tative timed specimen Mark Yeager MD Work Phone: Start: 04-03-2024 Radiologic exam knee complete 4/more views Mark Yeager MD Work Phone: Start: 04-03-2024 Adult depression scr eening assessment Mark Yeager MD Work Phone: Start: 10-03-2023 Lipid 1996 panel - S dajuan or Plasma Cristel Plummer PA-C Work Phone: Start: 10-06-2022 Mammography Jemma Werner [employer] PROGRAM TEACHER.WET END SUPERVISOR Work Phone: Start: 09-27-2022 Lipid 1996 panel - S dajuan or Plasma Mark Yeager MD Work Phone: Start: 04-05-2022 Adult depression scr eening assessment Mark Yeager MD Work Phone: Start: 02-10-2022 Urnls dip stick/tabl et rgnt auto w/o microscopy Mark Yeager MD Work Phone: Start: 02-10-2021 Mammography Mark marte MD Work Phone: Start: 01-19-2019 Adult depression scr eening assessment Mark Yeager MD Work Phone: Start: 12-03-2013 Colonoscopy Mark marte MD Work Phone: Plan of Treatment Date Care Activity Detail Author Start: 10-03-2028 Lipid panel Lipid Screening [facility] Start: 01-08-2028 Diabetes Screening Diabetes Screenin [facility] Start: 09-27-2027 Lipid panel Lipid Screening [facility] Start: 09-27-2027 LIPID SCREEN LIPID SCREEN [facility] Start: 03-31-2027 Diabetes Screening Diabetes Screenin [facility] Start: 10-03-2026 LIPID SCREEN LIPID SCREEN [facility] Start: 04-01-2026 DIABETES SCREEN DIABETES SCREEN [facility] Start: 04-01-2026 Diabetes Screening Diabetes Screenin [facility] Start: 01-29-2026 Annual PCP Team [employer]obile [employer]er viri Disease Visit Annual PCP Team Chronic Disease Visit [facility] Start: 01-15-2026 Annual PCP Team Automobile Designer viri Disease Visit Annual PCP Team Chronic Disease Visit [facility] Start: 01-15-2026 End: 01-15-2026 Patient encounter procedure 01/15/2026 11:00 AM EDT Office Visit Geriatrics [address] [facility] [place] [address] Mark Yeager MD [address] [facility] [place] [address] [employer] Geriatrics Comment on above: [employer] Start: 09-27-2025 DIABETES SCREEN DIABETES SCREEN [facility] Start: 07-22-2025 End: 07-22-2025 Patient encounter procedure 07/22/2025 8:00 AM EST Office Visit [facility] [place] [address] [facility] [place] [place] [address] Mark Yeager MD [address] [facility] [place], [place] [id number] Wellness [facility] [place] Comment on above: Wellness Start: 07-16-2025 Annual PCP Team Automobile Designer viri Disease Visit Annual PCP Team Chronic Disease Visit [facility] Start: 07-16-2025 Covid-19 Vaccine ( season) Covid-19 Vaccine ( season) [facility] Comment on above: Postponed from 04/22 (Declined at this time) Start: 07-16-2025 RSV Vaccine (1 - 1-d ose 75+ series) RSV Vaccine (1 - 1-dose 75+ series) [facility] Comment on above: Postponed from 01/10 (Declined at this time) Start: 05-09-2025 End: 05-09-2025 Patient encounter procedure 05/09/2025 8:55 AM EDT Appointment Radiology [address] [place] [id number] [facility] Radiology Comment on above: Bone Density Start: 04-22-2025 Influenza vaccination [facility] Start: 04-17-2025 End: 04-17-2025 Patient encounter procedure 04/17/2025 1:30 PM EDT Office Visit Geriatrics [address] [facility] [place], [place] [id number] Mark Yeager MD [address] [place] [address] consult new patient Geriatrics Comment on above: consult new patient Start: 04-17-2025 End: 04-17-2025 Patient encounter procedure 04/17/2025 7:30 AM EDT Office Visit Geriatrics [address] [place] [id number] Mark Yeager MD [address] [place] [address] [facility] Comment on above: consult new paient Start: 04-03-2025 Annual PCP Team Automobile Designer viri Disease Visit Annual PCP Team Chronic Disease Visit [facility] Start: 04-03-2025 Anxiety Screening Anxiety Screening [facility] Start: 04-03-2025 BP Controlled (<130/80) BP Controlle d (<130/80) [facility] Start: 04-03-2025 Depression Screening Depression Scre ening [facility] Start: 03-18-2025 End: 03-18-2025 Patient encounter procedure 03/18/2025 1:40 PM EDT Appointment Radiology [address] [place] [id number] Bone Density Radiology Comment on above: Bone Density Start: 02-18-2025 Influenza vaccination Influenza Vacc ine (#1) [facility] Comment on above: Postponed from 04/22 (Declined at this time) Start: 01-15-2025 End: 01-15-2025 Patient encounter procedure 01/15/2025 8:40 AM EDT Office Visit [facility] [place] [address] [place] [address] Mark Yeager MD [address] [place] [id number] 6 month follow up [facility] [place] Comment on above: 6 month follow up Start: 01-13-2025 End: 04-14-2025 25-hydroxyvitamin D3 [Mass/volume] in Serum or Plasma VITAMIN D 25 HYDROXY Lab Routine Vitamin D deficiency Expected: 01/13/2025, Expires: 04/14/2025 [facility] Comment on above: Expected: 01/13/2025 , Expires: 04/14/2025 Start: 01-13-2025 End: 04-14-2025 CBC panel - Blood by Automated count COMPLETE BLOOD COUNT Lab Routine Essential hypertension Mixed hyperlipidemia Expected: 01/13/2025, Expires: 04/14/2025 [facility] Comment on above: Expected: 01/13/2025 , Expires: 04/14/2025 Start: 01-13-2025 End: 04-14-2025 Comprehensive metabolic 2000 panel - Serum or Plasma COMPREHENSIVE METABOLIC PANEL Lab Routine Essential hypertension Mixed hyperlipidemia Expected: 01/13/2025, Expires: 04/14/2025 [facility] Comment on above: Expected: 01/13/2025 , Expires: 04/14/2025 Start: 01-13-2025 End: 04-14-2025 Lipid 1996 panel - Serum or Plasma LIPID PANEL BASIC Lab Routine Essential hypertension Mixed hyperlipidemia Expected: 01/13/2025, Expires: 04/14/2025 [facility] Work Phone: Comment on above: Expected: 01/13/2025 , Expires: 04/14/2025 Start: 10-04-2024 Screening for osteoporosis Bone Dens ity Screening [facility] Start: 10-03-2024 Annual PCP Team Automobile Designer viri Disease Visit Annual PCP Team Chronic Disease Visit [facility] Start: 10-03-2024 BP Controlled (<130/80) BP Controlle d (<130/80) [facility] Start: 10-03-2024 DIABETES SCREEN DIABETES SCREEN [facility] Start: 08-22-2024 Advance Directive Discussion Advance Directive Discussion [facility] Start: 08-22-2024 Medicare Advantage A nnual Wellness Visit Medicare Advantage Annual Wellness Visit [facility] Start: 07-16-2024 End: 07-16-2024 Patient encounter procedure 07/16/2024 8:00 AM EST Office Visit Internal Medicine [place] [address] [place] [address] Mark Yeager MD [address] [place] [address] medicare wellness [facility] [place] Comment on above: medicare wellness Start: 05-29-2024 End: 05-29-2024 ambulatory 05/29/2024 7:45 AM EDT OT/PT/Speech Visit [facility] [address] [place] [address] Oleg Arguelles, PT [address] [place] [address] M17.9 (ICD-10-CM) - Osteoarthritis of knee, unspecified laterality, unspecified osteoarthritis type [facility] Comment on above: M17.9 (ICD-10-CM) - Osteoarthritis of knee, unspecified laterality, unspecified osteoarthritis type Start: 05-22-2024 End: 05-22-2024 ambulatory 05/22/2024 8:00 AM EDT OT/PT/Speech Visit [facility] [address] [place] [address] Rakel Ahumada, SLOTS MANAGER [address] [place] [address] M17.9 (ICD-10-CM) - Osteoarthritis of knee, unspecified laterality, unspecified osteoarthritis type [facility] Comment on above: M17.9 (ICD-10-CM) - Osteoarthritis of knee, unspecified laterality, unspecified osteoarthritis type Start: 05-15-2024 End: 05-15-2024 ambulatory 05/15/2024 8:00 AM EDT OT/PT/Speech Visit [facility] [address] [place] [address] Rakel Ahumada, SLOTS MANAGER [address] [place] [address] M17.9 (ICD-10-CM) - Osteoarthritis of knee, unspecified laterality, unspecified osteoarthritis type [facility] Comment on above: M17.9 (ICD-10-CM) - Osteoarthritis of knee, unspecified laterality, unspecified osteoarthritis type Start: 05-07-2024 End: 05-07-2024 ambulatory 05/07/2024 7:45 AM EDT OT/PT/Speech Visit [facility] [address] [place] [address] Oleg Arguelles, PT [address] [place], [place] [id number] M17.9 (ICD-10-CM) - Osteoarthritis of knee, unspecified laterality, unspecified osteoarthritis type [facility] Comment on above: M17.9 (ICD-10-CM) - Osteoarthritis of knee, unspecified laterality, unspecified osteoarthritis type Start: 05-01-2024 End: 05-01-2024 ambulatory 05/01/2024 10:15 AM EDT OT/PT/Speech Visit [facility] [address] [place] [address] Oleg Arguelles, PT [address] [place], [place] [id number] Osteoarthritis of knee, unspecified laterality, unspecified osteoarthritis type [facility] Comment on above: Osteoarthritis of kn ee, unspecified laterality, unspecified osteoarthritis type Start: 04-22-2024 Covid-19 Vaccine ( season) Covid-19 Vaccine ( season) [facility] Start: 04-22-2024 Covid-19 Vaccine ( season) Covid-19 Vaccine ( season) [facility] Start: 04-22-2024 Influenza vaccination Influenza Vacc ine (#1) [facility] Start: 04-03-2024 End: 04-03-2024 Patient encounter procedure 04/03/2024 8:40 AM EDT Office Visit [facility] Medicine [place] [address] [place] [address] Mark Yeager MD [address] [place] [address] 6 month follow up-labs [facility] [place] Comment on above: 6 month follow up-la bs Start: 04-01-[address] REPORTER VIRI DISEASE VISIT ANNUAL PCP TEAM CHRONIC DISEASE VISIT [facility] Start: 04-01-2024 BP CONTROLLED (<130/80) BP CONTROLLE D (<130/80) [facility] Start: 03-20-2024 End: 06-19-2024 Basic metabolic 2000 panel - Serum or Plasma BASIC METABOLIC PANEL Lab Routine Essential hypertension Expected: 03/20/2024, Expires: 06/19/2024 [facility] Work Phone: Comment on above: Expected: 03/20/2024 , Expires: 06/19/2024 Start: 12-04-2023 Colonoscopy COLONOSCOPY [facility] Start: 12-04-2023 COLORECTAL CANCER SCREENING COLORECTAL CANCER SCREENING [facility] Start: 12-04-2023 Screening for malign ant neoplasm of colon [facility] Start: 10-06-2023 Mammography MAMMOGRAM [facility] Start: 10-03-2023 End: 01-02-2024 25-hydroxyvitamin D3 [Mass/volume] in Serum or Plasma [facility] Work Phone: Comment on above: Expected: 10/03/2023 , Expires: 01/02/2024 Start: 10-03-2023 End: 01-02-2024 Calcium.ionized [Moles/volume] in Blood [facility] Work Phone: Comment on above: Expected: 10/03/2023 , Expires: 01/02/2024 Start: 10-03-2023 End: 01-02-2024 Lipid 1996 panel - Serum or Plasma [facility] Work Phone: Comment on above: Expected: 10/03/2023 , Expires: 01/02/2024 Start: 10-03-2023 End: 01-02-2024 Parathyrin.intact [Mass/volume] in Serum or Plasma [facility] Work Phone: Comment on above: Expected: 10/03/2023 , Expires: 01/02/2024 Start: 10-03-2023 End: 01-02-2024 Thyrotropin [Units/volume] in Serum or Plasma [facility] Work Phone: Comment on above: Expected: 10/03/2023 , Expires: 01/02/2024 Start: 10-01-[address]AM OFF[address] REPORTER VIRI DISEASE VISIT ANNUAL PCP TEAM CHRONIC DISEASE VISIT [facility] Start: 10-01-2023 BP CONTROLLED (<130/80) BP CONTROLLE D (<130/80) [facility] Start: 09-20-2023 End: 12-20-2023 Alanine aminotransferase [Enzymatic activity/volume] in Serum or Plasma ALT/SGPT Lab Routine Medication management Expected: 09/20/2023, Expires: 12/20/2023 [facility] Work Phone: Comment on above: Expected: 09/20/2023 , Expires: 12/20/2023 Start: 09-20-2023 End: 12-20-2023 Aspartate aminotransferase [Enzymatic activity/volume] in Serum or Plasma AST/SGOT BLD Lab Routine Medication management Expected: 09/20/2023, Expires: 12/20/2023 [facility] Work Phone: Comment on above: Expected: 09/20/2023 , Expires: 12/20/2023 Start: 09-20-2023 End: 12-20-2023 CBC panel - Blood by Automated count CBC Lab Routine Medication management Expected: 09/20/2023, Expires: 12/20/2023 [facility] Work Phone: Comment on above: Expected: 09/20/2023 , Expires: 12/20/2023 Start: 08-22-2023 Advance Directive Discussion Advance Directive Discussion [facility] Start: 08-22-2023 Depression Assessment Depression Ass essment [facility] Start: 04-22-2023 Covid-19 Vaccine () Covid-19 Vaccine () [facility] Start: 04-22-2023 Influenza vaccination [facility] Start: 04-05-2023 Adult depression scr eening assessment DEPRESSION SCREENING [facility] Start: 04-05-[address]23 AN[address]AL PCP TEAM OFFICIAL COURT REPORTER VIRI DISEASE VISIT ANNUAL PCP TEAM CHRONIC DISEASE VISIT [facility] Start: 04-05-2023 BP CONTROLLED (<130/80) BP CONTROLLE D (<130/80) [facility] Start: 02-18-2023 Influenza vaccination INFLUENZA (#1) [facility] Comment on above: Postponed from 04/22 (Declined at this time) Start: 02-10-2023 ANNUAL PCP TEAM OFFICIAL COURT REPORTER VIRI DISEASE VISIT ANNUAL PCP TEAM CHRONIC DISEASE VISIT [facility] Start: 02-10-2023 BP CONTROLLED (<130/80) BP CONTROLLE D (<130/80) [facility] Start: 01-10-2023 RSV Vaccine (1 - 1-d ose 75+ series) RSV Vaccine (1 - 1-dose 75+ series) [facility] Start: 10-06-2022 End: 12-06-2022 Lipid 1996 panel - Serum or Plasma LIPID PANEL BASIC Lab Routine Mixed hyperlipidemia Expected: 10/06/2022, Expires: 12/06/2022 [facility] Work Phone: Comment on above: Expected: 10/06/2022 , Expires: 12/06/2022 Start: 09-14-2022 End: 11-14-2022 Alanine aminotransferase [Enzymatic activity/volume] in Serum or Plasma ALT/SGPT Lab Routine Medication management Expected: 09/14/2022, Expires: 11/14/2022 [facility] Work Phone: Comment on above: Expected: 09/14/2022 , Expires: 11/14/2022 Start: 09-14-2022 End: 11-14-2022 Aspartate aminotransferase [Enzymatic activity/volume] in Serum or Plasma AST/SGOT BLD Lab Routine Medication management Expected: 09/14/2022, Expires: 11/14/2022 [facility] Work Phone: Comment on above: Expected: 09/14/2022 , Expires: 11/14/2022 Start: 09-14-2022 End: 11-14-2022 Basic metabolic 2000 panel - Serum or Plasma BASIC METABOLIC PNL Lab Routine Essential hypertension Expected: 09/14/2022, Expires: 11/14/2022 [facility] Work Phone: Comment on above: Expected: 09/14/2022 , Expires: 11/14/2022 Start: 09-14-2022 End: 11-14-2022 CBC panel - Blood by Automated count CBC Lab Routine Medication management Expected: 09/14/2022, Expires: 11/14/2022 [facility] Work Phone: Comment on above: Expected: 09/14/2022 , Expires: 11/14/2022 Start: 09-14-2022 End: 11-14-2022 SCHEDULE LAB TESTING SCHEDULE LAB TESTING Lab Routine Expected: 09/14/2022, Expires: 11/14/2022 [facility] Work Phone: Comment on above: Expected: 09/14/2022 , Expires: 11/14/2022 Start: 08-22-2022 ADVANCE DIRECTIVE DISCUSSION ADVANCE DIRECTIVE DISCUSSION [facility] Start: 08-22-2022 [facility] Start: 04-22-2022 Influenza vaccination [facility] Start: 04-05-2022 End: 06-05-2022 Urinalysis complete panel - Urine URINALYSIS, WITH MICROSCOPIC Lab Routine Dysuria Expected: 04/05/2022, Expires: 06/05/2022 [facility] Work Phone: Comment on above: Expected: 04/05/2022 , Expires: 06/05/2022 Start: 02-10-2022 Mammography MAMMOGRAM [facility] Start: 02-10-2022 End: 04-12-2022 Urinalysis complete panel - Urine URINALYSIS, WITH MICROSCOPIC Lab Routine Urinary tract infection with hematuria, site unspecified Expected: 02/10/2022, Expires: 04/12/2022 [facility] Work Phone: Comment on above: Expected: 02/10/2022 , Expires: 04/12/2022 Start: 12-08-2021 BP CONTROLLED (<130/80) BP CONTROLLE D (<130/80) [facility] Start: 12-08-2021 zzBP Controlled (<13 0/80) (Retired) zzBP Controlled (<130/80) (Retired) [facility] Start: 08-22-2021 ADVANCE DIRECTIVE DISCUSSION ADVANCE DIRECTIVE DISCUSSION [facility] Start: 08-22-2021 DEPRESSION ASSESSMENT DEPRESSION ASS ESSMENT [facility] Start: 01-20-2020 Adult depression scr eening assessment DEPRESSION SCREENING [facility] Start: 08-02-2015 Urine microalbumin profile [facility] Start: 2008 RSV Vaccine (1 - 1-d ose 60+ series) RSV Vaccine (1 - 1-dose 60+ series) [facility] Start: 01-10-1993 COLOGUARD (FIT-DNA) COLOGUARD (FIT-D NA) [facility] Start: 01-10-[address] COLONOGRAPHY [facility] Start: 01-10-1993 FECAL OCCULT BLOOD FECAL OCCULT BLOO D [facility] Start: 01-10-1993 Screening for malign ant neoplasm of colon [facility] Start: 01-10-1993 SIGMOIDOSCOPY SIGMOIDOSCOPY [facility] Start: 01-10-1966 Anxiety Screening Anxiety Screening [facility] Start: 01-10-1966 Depression Screening Depression Scre ening [facility] Start: 01-10-1953 COVID-19 VACCINE (#1) COVID-19 VACCI NE (#1) [facility] Start: 1950 COVID-19 VACCINE (#1) COVID-19 VACCI NE (#1) [facility] Bacteria identified in Urine by Culture URINE CULTURE Microbiology Routine Urinary tract infection with hematuria, site unspecified Ordered: 02/10/2022 [facility] Work Phone: Comment on above: Ordered: 02/10/2022 End: 05-17-2026 BD DXA TRABECULAR BONE SCORE (TBS) BD DXA TRABECULAR BONE SCORE (TBS) Radiology Routine Osteopenia, unspecified location 1 Occurrences starting 04/17/2025 until 05/17/2026 [facility] Comment on above: 1 Occurrences starti ng 04/17/2025 until 05/17/2026 End: 11-06-2023 Diagnostic mammography computer-aided detcj [facility] DIAGNOSTIC RT Radiology Routine Abnormal mammogram 1 Occurrences starting 10/07/2022 until 11/06/2023 [facility] Work Phone: Comment on above: 1 Occurrences starti ng 10/07/2022 until 11/06/2023 End: 05-05-2023 Dxa bone density study 1/> sites axial skel DXA-AXIAL SKELETON Radiology Routine Age-related osteoporosis without current pathological fracture 1 Occurrences starting 04/05/2022 until 05/05/2023 [facility] Work Phone: Comment on above: 1 Occurrences starti ng 04/05/2022 until 05/05/2023 End: 05-17-2026 DXA Skeletal system.axial Views for bone density DXA-AXIAL SKELETON Radiology Routine Osteopenia, unspecified location 1 Occurrences starting 04/17/2025 until 05/17/2026 [facility] Work Phone: Comment on above: 1 Occurrences starti ng 04/17/2025 until 05/17/2026 End: 10-31-2023 ESPERANZA SCREENING ESPERANZA SCREENING Radiology Routine Encounter for screening mammogram for malignant neoplasm of breast 1 Occurrences starting 10/01/2022 until 10/31/2023 [facility] Work Phone: Comment on above: 1 Occurrences starti ng 10/01/2022 until 10/31/2023 End: 04-17-2026 Polysomnogram POLYSOMNOGRAM (PSG) Procedures Routine Sleep apnea, unspecified type 1 Occurrences starting 04/17/2025 until 04/17/2026 [facility] Comment on above: 1 Occurrences starti ng 04/17/2025 until 04/17/2026 End: 04-23-2023 Screening mammography bi 2-view breast inc cad ESPERANZA SCREENING Radiology Routine Encounter for screening mammogram for breast cancer 1 Occurrences starting 03/24/2022 until 04/23/2023 [facility] Work Phone: Comment on above: 1 Occurrences starti ng 03/24/2022 until 04/23/2023 End: 11-06-2023 Us breast uni real time with image limited US BREAST LTD RT Radiology Routine Abnormal mammogram 1 Occurrences starting 10/07/2022 until 11/06/2023 [facility] Work Phone: Comment on above: 1 Occurrences starti ng 10/07/2022 until 11/06/2023 End: 05-03-2025 XR Knee - left 4 Views XR KNEE GENERAL 4V AP BOTH/PA BOTH/LAT/MERC LEFT Radiology Routine Acute pain of left knee 1 Occurrences starting 04/03/2024 until 05/03/2025 [facility] Work Phone: Comment on above: 1 Occurrences starti ng 04/03/2024 until 05/03/2025 XR Knee - left 4 Views XR KNEE G ENERAL 4V AP BOTH/PA BOTH/LAT/MERC LEFT Radiology Routine Acute pain of left knee 04/03/2024 10:37 AM EDT [facility] Immunizations Immunization Date Immunization Notes Care Provider Luisa rodriges 05-18-2017 pneumococcal polysaccharide vaccine, 23 valent Mark Yeager MD Work Phone: [facility] Work Phone: 05-18-2017 influenza virus vacc ine, unspecified formulation Mark Yeager MD Work Phone: [facility] 05-17-2016 pneumococcal conjuga te vaccine, 13 valent Mark Yeager MD Work Phone: [facility] Work Phone: 08-01-2015 tetanus and diphther ia toxoids, adsorbed, preservative free, for adult use (5 Lf of tetanus toxoid and 2 Lf of diphtheria toxoid) Mark Yeager MD Work Phone: [facility] 08-22-2008 tetanus and diphther ia toxoids, not adsorbed, for adult use Mark Yeager MD Work Phone: [facility] Work Phone: Payers Date Payer Category Payer Medicare (Managed Care) [facility]LOS [facility]CIM[facility]O [facility] [id number] 2019 Unknown CARLOS DANIELS S AND BLUE SHIELD CARL[facility] [id number] 2019-Present [phone] [address] [place] [address] O [id number] 2019 Unknown [id number] 2019 Medicare [id number] Social History Date Type Detail Facility Start: 11-15-2017 End: 04-05-2022 Tobacco smoking status NHIS Never smoked tobacco [facility] Work Phone: Start: 02-10-2022 End: 04-17-2025 Alcohol intake Current non-drinker of alcohol (finding) [facility] Start: 1950 Sex Assigned At Not on file [facility] Start: 01-31-2022 End: 04-05-2022 Exposure to SARS-CoV-2 (event) Not sure [facility] Work Phone: Start: 11-15-2017 End: 04-05-2022 Tobacco use and exposure Smokeless tobacco non-user [facility] Start: 07-27-2020 End: 03-10-2023 History of Social function [facility] Work Phone: Start: 07-27-2020 End: 03-10-2023 Tobacco use panel [facility] Work Phone: Start: 07-23-2012 Adult Depression Screening Assessment 0 [facility] Work Phone: Clinical Notes 02-28-2017 to 05-09-2025 Patient Mark Suarez MD - 04/17/2025 2:14 PM EDTTelephone Encounter - Deysi Dvuall MA - 03/14/2025 4:27 PM EDTTelephone Encounter - Terri Rios - 03/14/2025 3:50 PM EDT Note Date & Type Note Facility 05-09-2025 Note HNO ID: [id number] Author: VIRY SEALS RT(R) Service: ? Author Type: Technologist Type: Progress Notes Filed: 05/09/2025 09:12 Note Text: Radiology Service Progress Note PATIENT NAME: Erinn Benson DATE OF SERVICE: May 09, 2025 TIME: 8:58 AM PATIENT IDENTITY VERIFICATION COMPLETED USING TWO (2) IDENTIFIERS: Name and Date of confirmed by patient verbally. FALL SCREENING: Has the patient had 2 falls in the last year or 1 fall with injury or currently using an Ambulatory Assistive Device (Walker, Cane, Wheelchair, Crutches, etc.)? No PATIENT GENDER DATA: Assigned female at . status: : No status: NO. PATIENT RELEVANT IMPLANT DATA REVIEWED: Not Applicable PATIENT PRESENTS WITH AN IMPLANTABLE OR ATTACHED COLOR DIPPER: No RADIOLOGY DEPARTMENT: Bone Density PERIPHERAL IV DATA: Not applicable SIGNED BY: RT Eugenio(R) May 09, 2025 8:58 AM [facility] 04-17-2025 Instructions Mark Yeager MD - 04/17/2025 2:56 PM EDT BONE MINERAL DENSITY PATIENT INSTRUCTIONS ======= Bone mineral density testing measures the amount of calcium in certain parts of your bones. This information determines how strong your bones are. The test is used to detect osteoporosis, a disease in which the bone's mineral content and density are low, increasing a person's risk of fractures. The lumbar spine (lower back) and the hip are the skeletal sites usually examined. For the test, remember that: 1. You cannot take this test if you are . 2. Eat a normal diet on the day of the test. 3. Take your medications as you normally would. 4. DO NOT take calcium supplements (such as Tums) for 24 hours before the test. 5. On the day of the test, leave valuables (jewelry or credit cards) at home. 6. The test should be performed prior to oral, rectal or IV contrast studies, or at least 7 days after any of these studies. For the test, you may be asked to wear a hospital gown. You will lie on your back, on a padded table, in a comfortable position. Generally, you can resume your usual activities immediately. documented in this encounter [facility] 04-17-2025 Note HNO ID: [id number] Author: MARK YEAGER MD Service: ? Author Type: Physician Type: Progress Notes Filed: 04/17/2025 17:40 Note Text: [facility] Initial Consult Erinn Benson is a 75 year old year old female who comes for Comprehensive Geriatric Assessment. Pt accompanied by: Caregivers involved in care: HPI: Fabienne Benson is a 75-year-old female with a history of HTN, HLD, and osteopenia, presenting for a evaluation of cognitive impairment. Fabienne reports experiencing memory issues, which she describes as not bad enough to get excited about. She notes feeling more fatigued than she used to, stating, it used to be you could work past tired. She also reports episodes of vertigo when lying down and rolling over to her left side. Additionally, she experiences urinary incontinence, particularly when she is close to the restroom, describing it as the closer you get to the commode, it's like your brain does not tell that zip for work anymore. She denies any issues with constipation, as she takes Miralax regularly. She also denies any problems with chewing or swallowing, though she notes that as you get older, you can swallow the wrong way a lot easier than you did when you were young. She does not report any tremors. Fabienne is currently taking medications for HTN, HLD, and osteopenia, including metoprolol, a statin, and Fosamax. She manages her own medications and is independent in her activities of daily living, including driving, cooking, and housekeeping. She enjoys walking her dogs and attending adventist activities. She denies any recent accidents or citations while driving. She has not completed a living will or advanced directives. Any Family History of dementia? No Are you or your spouse a ? Yes Alzheimer Questionnaire Long-term Memory: Difficulty remembering distant events from the past like childhood, previous employment, wedding: NO Behavioral/personality: Withdrawn/Depressed: NO Crying spells: NO Anxious: NO History of aggression: NO History of irritability: NO Apathy:NO Recent changes in weight or appetite: NO Alcohol or Drug use: NO Smoking? NO Sleep: Do you snore loudly (louder than talking or loud enough to be heard through closed doors)? YES Do you often feel tired, fatigued, or sleepy during daytime? YES Has anyone observed you stop breathing during your sleep? YES Are you restless when you sleep at night? NO Do you have problems falling a sleep? NO Do you have problems staying a sleep? YES and NO Psychosis: Hallucinations or delusions: NO Suicidal or homicidal ideations: NO Obsessions, compulsions, or hoarding: NO Safety: Does pt know his/her address? YES What would you do if there was a fire? Ge out and call 911 How would you call for help? Using phone or calling people Does he/she know 911? YES Are there any firearms in the home? NO If yes are they in a secure location? No Social History: Primary language: Malaysian Marital Status: Living situation: Home with spouse Socially engaged? (participates in activities such as clubs, adventist, community center, sports, games, visiting friends/relatives, etc?): YES Tuesday and Caregiver [place] and Stress Are your feeling overwhelmed? NO Do you have concerns about your own health? NO Are you neglecting your own needs? NO Do you have financial concerns? NO Do your fear loss of employment? NO Do you have concerns about verbal/physical abuse? NO Do you feel that you are still capable of taking care of your relative? NO Are you willing to continue being in the caregiver role? NO B-ADLs: (I=independent,A=assistance,D=depe ndent) ?Bathing: I, Dressing: I, Toileting: I, Transferring:I, Continence: I, Feeding: I, (Dash Index): 6 I-ADLs: Ability to use phone: I, Shopping: I, Cooking: I, Housekeeping: I, Laundry: I, Transportation:I, Medications: {I, Handle Finances: Other: historically always did it. (Westmoreland scale): 8 PMHx: PAST MEDICAL HISTORY Diagnosis Date HTN (hypertension) Hypercholesterolemia PSHx: PAST SURGICAL HISTORY Procedure Laterality Date BREAST LUMPECTOMY HX left breast CORRECTION OF BUNION right foot HYSTERECTOMY HX Home Meds: Prior to Admission medications: Medication metoprolol tartrate, short acting, (LOPRESSOR) 25 mg tablet, Sig Take 1 tablet by mouth two times a day., Start Date 03/15/25, End Date 06/13/25, Taking? Yes, Authorizing Provider Jemma Werner APRN.WET END SUPERVISOR Medication alendronate (FOSAMAX) 70 mg tablet, Sig TAKE 1 TABLET BY MOUTH EVERY WEEK ON AN EMPTY STOMACH DO NOT LIE DOWN FOR 30MIN, Start Date 01/15/25, Taking? Yes, Authorizing Provider Mark Yeager MD Medication rosuvastatin (CRESTOR) 10 mg tablet, Sig Take 1 tablet by mouth daily at bedtime., Start Date 10/05/24, Taking? Yes, Authorizing Provider Sixto Werner (more content not included)... [facility] 04-17-2025 History of Present illness Narrative [facility] Initial Consult Erinn Benson is a 75 year old year old female who comes for Comprehensive Geriatric Assessment. Pt accompanied by: Caregivers involved in care: HPI: Fabienne Benson is a 75-year-old female with a history of HTN, HLD, and osteopenia, presenting for a evaluation of cognitive impairment. Fabienne reports experiencing memory issues, which she describes as not bad enough to get excited about. She notes feeling more fatigued than she used to, stating, it used to be you could work past tired. She also reports episodes of vertigo when lying down and rolling over to her left side. Additionally, she experiences urinary incontinence, particularly when she is close to the restroom, describing it as the closer you get to the commode, it's like your brain does not tell that zip for work anymore. She denies any issues with constipation, as she takes Miralax regularly. She also denies any problems with chewing or swallowing, though she notes that as you get older, you can swallow the wrong way a lot easier than you did when you were young. She does not report any tremors. Fabienne is currently taking medications for HTN, HLD, and osteopenia, including metoprolol, a statin, and Fosamax. She manages her own medications and is independent in her activities of daily living, including driving, cooking, and housekeeping. She enjoys walking her dogs and attending adventist activities. She denies any recent accidents or citations while driving. She has not completed a living will or advanced directives. Any Family History of dementia? No Are you or your spouse a ? Yes Alzheimer Questionnaire Long-term Memory: Difficulty remembering distant events from the past like childhood, previous employment, wedding: NO Behavioral/personality: Withdrawn/Depressed: NO Crying spells: NO Anxious: NO History of aggression: NO History of irritability: NO Apathy:NO Recent changes in weight or appetite: NO Alcohol or Drug use: NO Smoking? NO Sleep: Do you snore loudly (louder than talking or loud enough to be heard through closed doors)? YES Do you often feel tired, fatigued, or sleepy during daytime? YES Has anyone observed you stop breathing during your sleep? YES Are you restless when you sleep at night? NO Do you have problems falling a sleep? NO Do you have problems staying a sleep? YES and NO Psychosis: Hallucinations or delusions: NO Suicidal or homicidal ideations: NO Obsessions, compulsions, or hoarding: NO Safety: Does pt know his/her address? YES What would you do if there was a fire? Ge out and call 911 How would you call for help? Using phone or calling people Does he/she know 911? YES Are there any firearms in the home? NO If yes are they in a secure location? No Social History: Primary language: Malaysian Marital Status: Living situation: Home with spouse Socially engaged? (participates in activities such as clubs, adventist, community center, sports, games, visiting friends/relatives, etc?): YES Tuesday and Caregiver [place] and Stress Are your feeling overwhelmed? NO Do you have concerns about your own health? NO Are you neglecting your own needs? NO Do you have financial concerns? NO Do your fear loss of employment? NO Do you have concerns about verbal/physical abuse? NO Do you feel that you are still capable of taking care of your relative? NO Are you willing to continue being in the caregiver role? NO B-ADLs: (I=independent,A=assistance,D=depe ndent) ?Bathing: I, Dressing: I, Toileting: I, Transferring:I, Continence: I, Feeding: I, (Dash Index): 6 I-ADLs: Ability to use phone: I, Shopping: I, Cooking: I, Housekeeping: I, Laundry: I, Transportation:I, Medications: {I, Handle Finances: Other: historically always did it. (Westmoreland scale): 8 PMHx: PAST MEDICAL HISTORY Diagnosis Date HTN (hypertension) Hypercholesterolemia PSHx: PAST SURGICAL HISTORY Procedure Laterality Date BREAST LUMPECTOMY HX left breast CORRECTION OF BUNION right foot HYSTERECTOMY HX Home Meds: Prior to Admission medications: Medication metoprolol tartrate, short acting, (LOPRESSOR) 25 mg tablet, Sig Take 1 tablet by mouth two times a day., Start Date 03/15/25, End Date 06/13/25, Taking? Yes, Authorizing Provider Jemma Werner APRN.WET END SUPERVISOR Medication alendronate (FOSAMAX) 70 mg tablet, Sig TAKE 1 TABLET BY MOUTH EVERY WEEK ON AN EMPTY STOMACH DO NOT LIE DOWN FOR 30MIN, Start Date 01/15/25, Taking? Yes, Authorizing Provider Mark Yeager MD Medication rosuvastatin (CRESTOR) 10 mg tablet, Sig Take 1 tablet by mouth daily at bedtime., Start Date 10/05/24, Taking? Yes, Authorizing Provider Jemma Werner APRN.WET END SUPERVISOR Medication lisinopril (ZESTRIL) 20 mg tablet, Sig Take 1 tablet by mouth once daily., Start Date 10/03/23, Taking? Yes, Authorizing Provider Cristel Plummer PA-C Medication fluticasone (FLONASE) 50 mcg/actuation nasal spray, Sig Use 2 Sprays in each nostril once daily. Rinse mouth after use., Start Date 04/01/23, Taking? Yes, Authorizing Provider Cristel Plummer PA-C Medication [id number] 1-50-2.5-25-50 mg cap, Sig Take by mouth once daily., Start Date 10/01/22, Taking? Yes, Authorizing Provider Mark Yeager MD Medication Zinc 50 mg tab, Sig Take 1 tablet by mouth once daily., Start Date 10/06/21, Taking? Yes, Authorizing Provider Mark Yeager MD Medication ascorbic acid (CODY-C ORAL), Sig Take by mouth., Taking? Yes, Authorizing Provider Provider [facility] Medication SELENIUM ORAL, Sig Take by mouth., Taking? Yes, Authorizing Provider Provider, [facility] Medication aspirin, enteric coated (ASPIRIN, ENTERIC COATED) 81 mg EC tablet, Sig Take 1 tablet by mouth once daily., Start Date 11/14/15, Taking? Yes, Authorizing Provider Mark Yeager MD Other OTC med/supplements: None Medication Review: - ANY HIGH RISK MEDICATIONS (STOPP CRITERIA): NO ALLERGIES Allergen Reactions Tylenol [Acetaminop* Swelling Review of Systems Difficulty chew/swallow: no Pain: she denies having pain Tremor: no tremors she knows of. Incontinence - During the last 3 months did you leak urine? YES and NO - Type?: urge incontinence Constipation/Change in bowel habits: NO Vision Yes has vision issues and she sees an eye doctor Follows with financial service rep:YES Hearing - Hearing aid : Hearing impairment, no hearing aids Falls: .: Falls in the last 12 months: None. If + falls: Physical Exam: General: Well-nourished, kempt Ambulatory: without assistance Mobility Aid: None Head: Normocephalic Eyes: conjunctiva/corneas normal, EOMI Ears: R TM - clear with good landmarks, nl light reflex, L TM - clear with good landmarks, nl light reflex Cardio: regular rate and rhythm Pulmonary: Lungs clear to auscultation bilaterally Extremities: Extremities normal. No deformities, edema, or skin discoloration. Musculoskeletal: Normal Gait Neuro:Deep Tendon reflexes :2/4 , Both Cranial nerves Extremities: Extremities normal. No deformities, edema, or skin discoloration. Musculoskeletal: No rigidity, tremor or bradykinesia is noted. Rhomberg: Negative. Neuro:Deep Tendon reflexes :2/4 , Both Lurias test: was normal. A tandem gait testing was normal. Was able to stand on either leg for 10 seconds without any issues. Gait: Unsteadiness: NO Shuffling: NO Tremors: NO Slowness: NO Slater Cognitive Exam (MOCA): 25/30 CDR Dementia Scale 1) Subjective Memory Loss: NO 2) Measurable Memory Loss: YES 3) IADLs: NO 4) BADLs: NO Driving Safely: Yes > 50% 6) Medications: No Level: 0.5 Depression Screening/Evaluation: GDS: 2/15 Assessment and Plan: 1. Mild cognitive impairment (G31.84) 2. Sleep apnea, unspecified type (G47.30) Here to discuss her subjective memory issues, MOCA score of 25 suggests, if anything MCI, as she has not functional impairment. Her 5 word recall did not suggest amnesia, also did get more fischer 11 workds wtih the letter F. I think her MCI is likely related to untreated sleep apnea. - Ordered sleep study to confirm diagnosis and guide management. - Discussed potential benefits of treatment, including improvement in memory and cognitive function. 3. Osteopenia, unspecified location (M85.80) Bone density scan was not completed as scheduled. - Reordered bone density scan. 4. Essential hypertension (I10) Blood pressure remains elevated. - Recheck blood pressure. REFERRALS AND RECOMMENDATIONS 1. Discussed the cognitive benefits of memory exercises and reviewed examples 2. Discussed the cognitive benefits of physical exercise and socialization Voice recognition software was used to compose this office note. Please excuse any unintended typographical errors. Mark Yeager MD [facility] documented in this encounter [facility] 03-14-2025 Telephone encounter Note MAIRA: 01/29/25 with PCP NOV: 07/22/25-wellness with PCP Last refill: 04/03/24 With 180 and 0 refills Deysi Duvall MA [facility] 03-14-2025 Miscellaneous Notes MAIRA: 01/29/25 with PCP NOV: 07/22/25-wellness with PCP Last refill: 04/03/24 With 180 and 0 refills Deysi Duvall MA Prescription Refill Information The patient has been identified by name and date of : Yes Caregiver verified no other encounters exist for this prescription request: Yes Caregiver confirmed with patient/requestor that no other refills are due, in the near future, with this provider at this time: Yes The last office visit in the department: 01/29/25 Does the patient have a future office visit with this provider/department: Yes Requested Prescriptions Pending Prescriptions Disp Refills metoprolol tartrate, short acting, (LOPRESSOR) 25 mg tablet 180 tablet 0 Sig: Take 1 tablet by mouth two times a day. Terri Rios March 14, 2025 3:51 PM documented in this encounter [facility] 03-14-2025 Telephone encounter Note Prescription Refill Information The patient has been identified by name and date of : Yes Caregiver verified no other encounters exist for this prescription request: Yes Caregiver confirmed with patient/requestor that no other refills are due, in the near future, with this provider at this time: Yes The last office visit in the department: 01/29/25 Does the patient have a future office visit with this provider/department: Yes Requested Prescriptions Pending Prescriptions Disp Refills metoprolol tartrate, short acting, (LOPRESSOR) 25 mg tablet 180 tablet 0 Sig: Take 1 tablet by mouth two times a day. Terri Rios March 14, 2025 3:51 PM [facility] 01-29-2025 Note HNO ID: [id number] Author: MARK YEAGER MD Service: ? Author Type: Physician Type: Progress Notes Filed: 01/29/2025 11:11 Note Text: Reason for Visit Follow up HPI Fabienne Benson is a 75-year-old female presenting for medication reconciliation and adherence check. Fabienne has been taking Crestor 10 mg daily for the past couple of years, but has been transferring new medications into old bottles. She is also taking metoprolol 25 mg twice daily, lisinopril 20 mg daily, and alendronate 70 mg once a week. She was previously taking metoprolol 25 mg once daily, but has recently increased to twice daily. She is not taking docusate or psyllium husk, but is using Miralax. She is also taking several supplements, including CoQ10 100 mg, magnesium glycinate 300 mg at night, B-complex, vitamin C, vitamin D daily, calcium, zinc, turmeric, and curcumin. She is taking two different zinc supplements, one of which contains a small amount of zinc. She has been taking magnesium glycinate in the morning, but was advised to take it at night to help with sleep. Social History Tobacco Use Smoking status: Never Smokeless tobacco: Never Substance Use Topics Alcohol use: No Drug use: No Past medical history, appointments, medications, allergies reviewed. Pertinent Lab/Diagnostic Studies are reviewed and discussed today Current Outpatient Medications: alendronate (FOSAMAX) 70 mg tablet rosuvastatin (CRESTOR) 10 mg tablet metoprolol tartrate, short acting, (LOPRESSOR) 25 mg tablet lisinopril (ZESTRIL) 20 mg tablet fluticasone (FLONASE) 50 mcg/actuation nasal spray [id number] 1-50-2.5-25-50 mg cap Zinc 50 mg tab ascorbic acid (CODY-C ORAL) SELENIUM ORAL aspirin, enteric coated (ASPIRIN, ENTERIC COATED) 81 mg EC tablet Health Maintenance DTaP,Tdap,Td Vaccine(1 - Tdap) BP Controlled (<130/80) Advance Directive Discussion@ Review Of Systems Physical Exam BP 135/79 Pulse 64 Resp 16 GENERAL: NAD, alert and oriented SKIN: unremarkable, no rash or skin lesions. HEAD: normocephalic EYES: PERRLA, EOMI, conjunctiva clear LUNGS: Clear to auscultation bilaterally, no wheezes/rhonchi/rales. HEART: Regular rate and rhythm, no murmurs. No ectopy. EXTREMITIES: Normal, No deformities, No skin discoloration, No edema. NEURO: Awake, alert and oriented x3, cranial nerves II-XII grossly intact, normal gait, no involuntary motions Assessment and Plan 1. At risk for polypharmacy (Z91.89) Patient is taking multiple medications including Crestor 10 mg daily, metoprolol 25 mg BID, lisinopril 20 mg daily, and alendronate 70 mg weekly. Additionally, patient is taking several supplements including CoQ10 100 mg, magnesium glycinate 300 mg, B-complex, vitamin C, vitamin D, calcium, zinc, turmeric, and curcumin. Patient was previously taking docusate and psyllium husk but has discontinued these and is now using Miralax. - Educated patient on the importance of medication adherence and proper storage of medications. - Advised patient to discard old medication bottles to avoid confusion. - Recommended taking magnesium glycinate at night to aid sleep. - Instructed patient to call the office when 10 days to 2 weeks out of medication to ensure timely refills. 2. Uncontrolled hypertension (I10) Patient is on metoprolol 25 mg BID and lisinopril 20 mg daily. Recent adjustment made to metoprolol dosing from 25 mg daily to 25 mg BID. - Monitor blood pressure regularly. - Continue current antihypertensive regimen. Voice recognition software was used to compose this office note. Please excuse any unintended typographical errors. Recording using [employer] software for draft documentation of the visit was discussed with the patient/authorized customer assistance representative; all questions welcomed and answered. Patient/authorized customer assistance representative agreed to proceed Mark Yeager MD [facility] 01-29-2025 History of Present illness Narrative Reason for Visit Follow up HPI Fabienne Benosn is a 75-year-old female presenting for medication reconciliation and adherence check. Fabienne has been taking Crestor 10 mg daily for the past couple of years, but has been transferring new medications into old bottles. She is also taking metoprolol 25 mg twice daily, lisinopril 20 mg daily, and alendronate 70 mg once a week. She was previously taking metoprolol 25 mg once daily, but has recently increased to twice daily. She is not taking docusate or psyllium husk, but is using Miralax. She is also taking several supplements, including CoQ10 100 mg, magnesium glycinate 300 mg at night, B-complex, vitamin C, vitamin D daily, calcium, zinc, turmeric, and curcumin. She is taking two different zinc supplements, one of which contains a small amount of zinc. She has been taking magnesium glycinate in the morning, but was advised to take it at night to help with sleep. Social History Tobacco Use Smoking status: Never Smokeless tobacco: Never Substance Use Topics Alcohol use: No Drug use: No Past medical history, appointments, medications, allergies reviewed. Pertinent Lab/Diagnostic Studies are reviewed and discussed today Current Outpatient Medications: alendronate (FOSAMAX) 70 mg tablet rosuvastatin (CRESTOR) 10 mg tablet metoprolol tartrate, short acting, (LOPRESSOR) 25 mg tablet lisinopril (ZESTRIL) 20 mg tablet fluticasone (FLONASE) 50 mcg/actuation nasal spray [id number] 1-50-2.5-25-50 mg cap Zinc 50 mg tab ascorbic acid (CODY-C ORAL) SELENIUM ORAL aspirin, enteric coated (ASPIRIN, ENTERIC COATED) 81 mg EC tablet Health Maintenance DTaP,Tdap,Td Vaccine(1 - Tdap) BP Controlled (<130/80) Advance Directive Discussion@ Review Of Systems Physical Exam BP 135/79 Pulse 64 Resp 16 GENERAL: NAD, alert and oriented SKIN: unremarkable, no rash or skin lesions. HEAD: normocephalic EYES: PERRLA, EOMI, conjunctiva clear LUNGS: Clear to auscultation bilaterally, no wheezes/rhonchi/rales. HEART: Regular rate and rhythm, no murmurs. No ectopy. EXTREMITIES: Normal, No deformities, No skin discoloration, No edema. NEURO: Awake, alert and oriented x3, cranial nerves II-XII grossly intact, normal gait, no involuntary motions Assessment and Plan 1. At risk for polypharmacy (Z91.89) Patient is taking multiple medications including Crestor 10 mg daily, metoprolol 25 mg BID, lisinopril 20 mg daily, and alendronate 70 mg weekly. Additionally, patient is taking several supplements including CoQ10 100 mg, magnesium glycinate 300 mg, B-complex, vitamin C, vitamin D, calcium, zinc, turmeric, and curcumin. Patient was previously taking docusate and psyllium husk but has discontinued these and is now using Miralax. - Educated patient on the importance of medication adherence and proper storage of medications. - Advised patient to discard old medication bottles to avoid confusion. - Recommended taking magnesium glycinate at night to aid sleep. - Instructed patient to call the office when 10 days to 2 weeks out of medication to ensure timely refills. 2. Uncontrolled hypertension (I10) Patient is on metoprolol 25 mg BID and lisinopril 20 mg daily. Recent adjustment made to metoprolol dosing from 25 mg daily to 25 mg BID. - Monitor blood pressure regularly. - Continue current antihypertensive regimen. Voice recognition software was used to compose this office note. Please excuse any unintended typographical errors. Recording using ambient [employer] software for draft documentation of the visit was discussed with the patient/authorized customer assistance representative; all questions welcomed and answered. Patient/authorized customer assistance representative agreed to proceed Mark Yeager MD documented in this encounter [facility] 01-29-2025 Instructions Mark Yeager MD - 01/29/2025 8:38 AM EDT We discussed your medications and supplements: - You are currently taking the following medications: - Crestor 10 mg daily. Please ensure you are using the correct, updated bottle for this medication. - Metoprolol 25 mg twice daily. You will now take this twice a day instead of once a day. - Lisinopril 20 mg daily. Continue taking this as prescribed. - Alendronate 70 mg once weekly. Continue taking this as prescribed. - Supplements: - CoQ10 100 mg daily: Continue as is. - Magnesium glycinate 300 mg: Shift this to nighttime, as it may help with sleep. - B-complex, Vitamin C, and Vitamin D daily: Continue as is. - Zinc: You are taking two sources of zinc. Ensure the total amount is appropriate and continue as is. - Calcium and turmeric/curcumin: Continue as is. - You have discontinued the following: - Docusate (stool softener) and psyllium husk. You are using Miralax instead for bowel regularity. We discussed medication organization: - Please separate old or duplicate medication bottles from your current medications to avoid confusion. Discard old bottles when you return home. We discussed prescription refills: - If you are 10 days to 2 weeks away from running out of any medication, please call our office, and we will send in your refills promptly. No additional follow-up or testing was discussed during this visit. Please contact our office if you have any further questions or concerns. documented in this encounter [facility] 01-15-2025 History of Present illness Narrative Reason for Visit Follow up JOSEPHINE Loving is a 75-year-old female with a history of osteoporosis, HTN, and HLD, presenting for follow-up. Fabienne reports that she has not been taking her weekly alendronate for the past couple of months due to running out of the medication. She expresses concern about the potential risk of fractures due to this lapse in medication adherence. She is unsure of the names of her medications but reports taking a cholesterol medication nightly and metoprolol in the morning, though she was unaware that she was supposed to take metoprolol BID. She denies taking niacin or red yeast rice extract. She is also taking lisinopril. She reports a recent weight increase, which she attributes to her enjoyment of food. She notes that her weight typically fluctuates with the seasons, increasing in the winter and decreasing in the summer. She remains physically active, engaging in regular walking and using a small trampoline for exercise, particularly during the summer months. She has not yet completed her living will or advance directives, despite receiving the necessary paperwork. She is scheduled for a memory assessment in approximately 3 months and expresses some apprehension about the evaluation, stating, Just don't try to tell me I'm losing my brains because I don't want to know about it. Social History Tobacco Use Smoking status: Never Smokeless tobacco: Never Substance Use Topics Alcohol use: No Drug use: No Past medical history, appointments, medications, allergies reviewed. Pertinent Lab/Diagnostic Studies are reviewed and discussed today Current Outpatient Medications: rosuvastatin (CRESTOR) 10 mg tablet metoprolol tartrate, short acting, (LOPRESSOR) 25 mg tablet lisinopril (ZESTRIL) 20 mg tablet fluticasone (FLONASE) 50 mcg/actuation nasal spray [id number] 1-50-2.5-25-50 mg cap Zinc 50 mg tab ascorbic acid (CODY-C ORAL) aspirin, enteric coated (ASPIRIN, ENTERIC COATED) 81 mg EC tablet alendronate (FOSAMAX) 70 mg tablet SELENIUM ORAL Docusate Sodium 100 mg tab psyllium (KONSYL) packet Health Maintenance DTaP,Tdap,Td Vaccine(1 - Tdap) BP Controlled (<130/80) Advance Directive Discussion@ Review Of Systems No current subjective symptoms were explicitly reported during the encounter. No positive or negative symptoms were mentioned for any body system. Therefore, there are no ROS findings to list. Physical Exam BP 143/85 Pulse 64 Ht 170.2 cm (5' 7) Wt 72 kg (158 lb 11.7 oz) SpO2 98% BMI 24.86 kg/m GENERAL: NAD, alert and oriented. SKIN: Unremarkable, no rash or skin lesions. HEAD: Normocephalic. EYES: PERRLA, EOMI, conjunctiva clear. EARS: External ears normal, canals clear, TM's normal. NOSE/SINUSES: Nares normal. Septum midline. OROPHARYNX: Lips, mucosa, and tongue normal, good dentition. No oral lesions noted. NECK: Supple, no lymphadenopathy, normal thyroid, no carotid bruits. LUNGS: Clear to auscultation bilaterally, no wheezes/rhonchi/rales. HEART: Regular rate and rhythm, no murmurs. No ectopy. EXTREMITIES: Normal, no deformities, no skin discoloration, no edema. NEURO: Awake, alert and oriented x3, cranial nerves II-XII grossly intact, normal gait, no involuntary motions. Labs: - eGFR: 77 - Vitamin D: 50s - Cholesterol: Normal - Blood counts: Normal Imaging: (09/2022) Bone Densitometry: Some improvement in certain areas compared to previous study. Assessment and Plan 1. Age-related osteoporosis without current pathological fracture (M81.0) Patient has not been taking Fosamax for a couple of months due to running out of medication. Last bone density scan was in September 2022, showing some improvement in certain areas. - Refilled Fosamax, providing 12 pills for a 3-month supply, sent to [facility] in [place]. - Ordered a new bone density scan to assess current status. 2. Essential (primary) hypertension (I10) Blood pressure is elevated today. Patient has been taking metoprolol once daily instead of the prescribed twice daily. - Instructed patient to take metoprolol twice daily, morning and night. - Recheck blood pressure. 3. Mixed hyperlipidemia (E78.2) Cholesterol levels are within normal range. Patient reports taking a cholesterol medication at night but has not filled Crestor prescription for the past 6 months. - Confirmed patient is taking Crestor 10 mg at night. - Bring in all current medications for verification. Voice recognition software was used to compose this office note. Please excuse any unintended typographical errors. Recording using [employer] software for draft documentation of the visit was discussed with the patient/authorized customer assistance representative; all questions welcomed and answered. Patient/authorized customer assistance representative agreed to proceed Mark Yeager MD documented in this encounter [facility] 01-15-2025 Note HNO ID: [id number] Author: MARK YEAGER MD Service: ? Author Type: Physician Type: Progress Notes Filed: 01/15/2025 13:10 Note Text: Reason for Visit Follow up JOSEPHINE Loving is a 75-year-old female with a history of osteoporosis, HTN, and HLD, presenting for follow-up. Fabienne reports that she has not been taking her weekly alendronate for the past couple of months due to running out of the medication. She expresses concern about the potential risk of fractures due to this lapse in medication adherence. She is unsure of the names of her medications but reports taking a cholesterol medication nightly and metoprolol in the morning, though she was unaware that she was supposed to take metoprolol BID. She denies taking niacin or red yeast rice extract. She is also taking lisinopril. She reports a recent weight increase, which she attributes to her enjoyment of food. She notes that her weight typically fluctuates with the seasons, increasing in the winter and decreasing in the summer. She remains physically active, engaging in regular walking and using a small trampoline for exercise, particularly during the summer months. She has not yet completed her living will or advance directives, despite receiving the necessary paperwork. She is scheduled for a memory assessment in approximately 3 months and expresses some apprehension about the evaluation, stating, Just don't try to tell me I'm losing my brains because I don't want to know about it. Social History Tobacco Use Smoking status: Never Smokeless tobacco: Never Substance Use Topics Alcohol use: No Drug use: No Past medical history, appointments, medications, allergies reviewed. Pertinent Lab/Diagnostic Studies are reviewed and discussed today Current Outpatient Medications: rosuvastatin (CRESTOR) 10 mg tablet metoprolol tartrate, short acting, (LOPRESSOR) 25 mg tablet lisinopril (ZESTRIL) 20 mg tablet fluticasone (FLONASE) 50 mcg/actuation nasal spray [id number] 1-50-2.5-25-50 mg cap Zinc 50 mg tab ascorbic acid (CODY-C ORAL) aspirin, enteric coated (ASPIRIN, ENTERIC COATED) 81 mg EC tablet alendronate (FOSAMAX) 70 mg tablet SELENIUM ORAL Docusate Sodium 100 mg tab psyllium (KONSYL) packet Health Maintenance DTaP,Tdap,Td Vaccine(1 - Tdap) BP Controlled (<130/80) Advance Directive Discussion@ Review Of Systems No current subjective symptoms were explicitly reported during the encounter. No positive or negative symptoms were mentioned for any body system. Therefore, there are no ROS findings to list. Physical Exam BP 143/85 Pulse 64 Ht 170.2 cm (5' 7) Wt 72 kg (158 lb 11.7 oz) SpO2 98% BMI 24.86 kg/m? GENERAL: NAD, alert and oriented. SKIN: Unremarkable, no rash or skin lesions. HEAD: Normocephalic. EYES: PERRLA, EOMI, conjunctiva clear. EARS: External ears normal, canals clear, TM's normal. NOSE/SINUSES: Nares normal. Septum midline. OROPHARYNX: Lips, mucosa, and tongue normal, good dentition. No oral lesions noted. NECK: Supple, no lymphadenopathy, normal thyroid, no carotid bruits. LUNGS: Clear to auscultation bilaterally, no wheezes/rhonchi/rales. HEART: Regular rate and rhythm, no murmurs. No ectopy. EXTREMITIES: Normal, no deformities, no skin discoloration, no edema. NEURO: Awake, alert and oriented x3, cranial nerves II-XII grossly intact, normal gait, no involuntary motions. Labs: - eGFR: 77 - Vitamin D: 50s - Cholesterol: Normal - Blood counts: Normal Imaging: (09/2022) Bone Densitometry: Some improvement in certain areas compared to previous study. Assessment and Plan 1. Age-related osteoporosis without current pathological fracture (M81.0) Patient has not been taking Fosamax for a couple of months due to running out of medication. Last bone density scan was in September 2022, showing some improvement in certain areas. - Refilled Fosamax, providing 12 pills for a 3-month supply, sent to [facility] in [place]. - Ordered a new bone density scan to assess current status. 2. Essential (primary) hypertension (I10) Blood pressure is elevated today. Patient has been taking metoprolol once daily instead of the prescribed twice daily. - Instructed patient to take metoprolol twice daily, morning and night. - Recheck blood pressure. 3. Mixed hyperlipidemia (E78.2) Cholesterol levels are within normal range. Patient reports taking a cholesterol medication at night but has not filled Crestor prescription for the past 6 months. - Confirmed patient is taking Crestor 10 mg at night. - Bring in all current medications for verification. Voice recognition software was used to compose this office note. Please excuse any unintended typographical errors. Recording using [employer] software for draft documentation of the visit was discussed with the patient/authorized customer assistance representative; all questions welcomed and answered. Patient/authorize (more content not included)... [facility] 01-15-2025 Instructions Mark Yeager MD - 01/15/2025 8:53 AM EDT BONE MINERAL DENSITY PATIENT INSTRUCTIONS ======= Bone mineral density testing measures the amount of calcium in certain parts of your bones. This information determines how strong your bones are. The test is used to detect osteoporosis, a disease in which the bone's mineral content and density are low, increasing a person's risk of fractures. The lumbar spine (lower back) and the hip are the skeletal sites usually examined. For the test, remember that: 1. You cannot take this test if you are . 2. Eat a normal diet on the day of the test. 3. Take your medications as you normally would. 4. DO NOT take calcium supplements (such as Tums) for 24 hours before the test. 5. On the day of the test, leave valuables (jewelry or credit cards) at home. 6. The test should be performed prior to oral, rectal or IV contrast studies, or at least 7 days after any of these studies. For the test, you may be asked to wear a hospital gown. You will lie on your back, on a padded table, in a comfortable position. Generally, you can resume your usual activities immediately. documented in this encounter [facility] 10-05-2024 Telephone encounter Note Prescription Refill Information The patient has been identified by name and date of : Yes Caregiver verified no other encounters exist for this prescription request: Yes Caregiver confirmed with patient/requestor that no other refills are due, in the near future, with this provider at this time: Yes The last office visit in the department: 07/16/2024 Does the patient have a future office visit with this provider/department: Yes Requested Prescriptions Pending Prescriptions Disp Refills rosuvastatin (CRESTOR) 10 mg tablet 90 tablet 3 Sig: Take 1 tablet by mouth daily at bedtime. Kristen Campbell October 05, 2024 10:44 AM [facility] 10-05-2024 Miscellaneous Notes Prescription Refill Information The patient has been identified by name and date of : Yes Caregiver verified no other encounters exist for this prescription request: Yes Caregiver confirmed with patient/requestor that no other refills are due, in the near future, with this provider at this time: Yes The last office visit in the department: 07/16/2024 Does the patient have a future office visit with this provider/department: Yes Requested Prescriptions Pending Prescriptions Disp Refills rosuvastatin (CRESTOR) 10 mg tablet 90 tablet 3 Sig: Take 1 tablet by mouth daily at bedtime. Kristen Campbell October 05, 2024 10:44 AM documented in this encounter [facility] 07-16-2024 Telephone encounter Note Agree with recommendations and consult placed Thank you Jemma Werner APRN.CNP [facility] Work Phone: 07-16-2024 Miscellaneous Notes Agree with recommendations and consult placed Thank you Jemma Werner APRN.WET END SUPERVISOR Order for geriatrics pended for abnormal mini cog. Please file if agreeable. Cristel Barrow MA documented in this encounter [facility] 07-16-2024 Telephone encounter Note Order for geriatrics pended for abnormal mini cog. Please file if agreeable. Cristel Barrow MA [facility] 07-16-2024 Note HNO ID: [id number] Author: MARK EYAGER MD Service: ? Author Type: Physician Type: Progress Notes Filed: 07/16/2024 08:49 Note Text: Erinn Benson is a 74 year old female here for a Medicare wellness visit. Medicare Health Risk Assessment General Health Good Exercise: Minutes/Day 30 mins Exercise: Days/Week Most everyday Alcohol: Daily Use No Alcohol: Drinks/Day No Alcohol: 6 or more drinks No Feel off balance No Concerns: Teeth/Dentures No Concerns: Sexual function Yes , very dry Troubled by feelings No Frequency: Eating healthy diet 60% of the time ADLs requiring help No Safety precautions in home/vehicle No trouble with driving Smoke, vape, chews tobacco No Difficulty hearing A little , does not have hearing aids Difficulty seeing Has a cataract surgery and seeing better Current Providers Specialists: I have reviewed specialist-related care of the patient in the medical record. Medical/Family history review Reviewed and updated problem list, medical/surgical/family/social history, medications, and allergies. Opioid use review Opioid Medications (last 90 days) No data to display Depression Screening Cognitive screening Mini Cog Score: 3 Cognitive screening reviewed and No further action needed (score 3-5). Functional Observation Was the patient's Timed Up AND Go test unsteady or >= 12 seconds? No Advance Care Planning Surrogate decision maker and/or advance care plan documented Measurements BP 134/80 Pulse 66 Resp 16 Wt 69 kg (152 lb 1.9 oz) BMI 23.82 kg/m? Assessment/Plan Medicare annual wellness visit, subsequent (Z00.00) - Counseled on healthy diet and regular exercise - Fall avoidance information provided - Personalized prevention plan provided Reason for Visit Patient presents with: Medicare Wellness Exam Erinn Benson is a 74 year old female who presents here today for Above Complaints.. Health Maintenance Depression Screening Anxiety Screening RSV Vaccine(1 - 1-dose 60+ series) DTaP,Tdap,Td Vaccine(1 - Tdap) Covid-19 Vaccine( season) Advance Directive Discussion HPI Erinn is a very pleasant 74-year-old with a past medical history of hypertension, hyperlipidemia, osteopenia of multiple sites, allergies. Osteopenia: she is on fosamax and is tolerating it well. No major side effects, she is taking calcium once a day, and vitamin d And she is doing the mini trampoline that she likes to use, and she walks her dogs. HTN: BP controlled today. It is on the lower side at 110/60, on metoprolol at 25 mgs long acting, her heart rate is 59 and she often feels tired, we will cut down and taper off as needed. Checks BP at home. Compliant with medications. Denies any chest pain, palpitations, SOB, swelling in the feet. Careful with diet to avoid salt, trying to eat more fruits and vegetables, exercises regularly HPL: Reviewed test results with patient , takes medications regularly , does not report side effects. Conscious to avoid red meats, full fat dairy and its by products. Exercising 3 to 5 times a week. Bradycardia today. Likely from the use of metoprolol which was started due to palpitations She has a daughter who would be her power of channel marketing specialist- Shefali Johnson Knee pain: for the past 2/3 weeks she has been having trouble with walking due to pain in the left , lateral knee. Standing up does not hurt. Any type of weight bearing causes her to have pain. When the lateral meniscus is moved she has pain. 07/16/24: She had 3 sessions of Physical Therapy, in the past few months, is doing them and she is able to tolerate them, not only that she has found good benefit, ramirez that there is no pain every time she tries to walk. Still some discomfort when she lays down in bed. 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 She walks from one end of the house to the other end. Does have some memory issues but they are not too much. Not had trouble with apt, bill payments, decreased driving. She is not sure if her metoprolol is tartrate or succinate she will call with confirmation. Bp is normal today. No problem-specific Assessment AND Plan notes found for this encounter. PAST MEDICAL HISTORY Diagnosis Date HTN (hypertension) Hypercholesterolemia PAST SURGICAL HISTORY Procedure Laterality Date BREAST LUMPECTOMY HX left breast CORRECTION OF BUNION right foot HYSTERECTOMY HX FAMILY HISTORY Problem Relation Age of Onset Cancer Mother Heart Father Breast Cancer Sister Alzheimer's Disease Sister Social History Tobacco Use Smoking status: Never Smokeless tobacco: Never Substance Use Topics Alcohol use: No Drug use: No Past medical history, appointments, medications, allergies reviewed. Pertinent Lab/Diagnostic Studies are reviewed and discussed today Current Outpatient Medications: metoprolol tartrate, short acting, (LOPRESSOR) 25 mg tablet alendronate (FOSAMAX) 70 (more content not included)... [facility] 07-16-2024 History of Present illness Narrative Images from the original note were not included. Erinn Benson is a 74 year old female here for a Medicare wellness visit. Medicare Health Risk Assessment General Health Good Exercise: Minutes/Day 30 mins Exercise: Days/Week Most everyday Alcohol: Daily Use No Alcohol: Drinks/Day No Alcohol: 6 or more drinks No Feel off balance No Concerns: Teeth/Dentures No Concerns: Sexual function Yes , very dry Troubled by feelings No Frequency: Eating healthy diet 60% of the time ADLs requiring help No Safety precautions in home/vehicle No trouble with driving Smoke, vape, chews tobacco No Difficulty hearing A little , does not have hearing aids Difficulty seeing Has a cataract surgery and seeing better Current Providers Specialists: I have reviewed specialist-related care of the patient in the medical record. Medical/Family history review Reviewed and updated problem list, medical/surgical/family/social history, medications, and allergies. Opioid use review Opioid Medications (last 90 days) No data to display Depression Screening Cognitive screening Mini Cog Score: 3 Cognitive screening reviewed and No further action needed (score 3-5). Functional Observation Was the patient's Timed Up & Go test unsteady or >= 12 seconds? No Advance Care Planning Surrogate decision maker and/or advance care plan documented Measurements BP 134/80 Pulse 66 Resp 16 Wt 69 kg (152 lb 1.9 oz) BMI 23.82 kg/m Assessment/Plan Medicare annual wellness visit, subsequent (Z00.00) - Counseled on healthy diet and regular exercise - Fall avoidance information provided - Personalized prevention plan provided Reason for Visit Patient presents with: Medicare Wellness Exam Erinn Benson is a 74 year old female who presents here today for Above Complaints.. Health Maintenance Depression Screening Anxiety Screening RSV Vaccine(1 - 1-dose 60+ series) DTaP,Tdap,Td Vaccine(1 - Tdap) Covid-19 Vaccine( season) Advance Directive Discussion HPI Erinn is a very pleasant 74-year-old with a past medical history of hypertension, hyperlipidemia, osteopenia of multiple sites, allergies. Osteopenia: she is on fosamax and is tolerating it well. No major side effects, she is taking calcium once a day, and vitamin d And she is doing the mini trampoline that she likes to use, and she walks her dogs. HTN: BP controlled today. It is on the lower side at 110/60, on metoprolol at 25 mgs long acting, her heart rate is 59 and she often feels tired, we will cut down and taper off as needed. Checks BP at home. Compliant with medications. Denies any chest pain, palpitations, SOB, swelling in the feet. Careful with diet to avoid salt, trying to eat more fruits and vegetables, exercises regularly HPL: Reviewed test results with patient , takes medications regularly , does not report side effects. Conscious to avoid red meats, full fat dairy and its by products. Exercising 3 to 5 times a week. Bradycardia today. Likely from the use of metoprolol which was started due to palpitations She has a daughter who would be her power of channel marketing specialist- Shefali Johnson Knee pain: for the past 2/3 weeks she has been having trouble with walking due to pain in the left , lateral knee. Standing up does not hurt. Any type of weight bearing causes her to have pain. When the lateral meniscus is moved she has pain. 07/16/24: She had 3 sessions of Physical Therapy, in the past few months, is doing them and she is able to tolerate them, not only that she has found good benefit, ramirez that there is no pain every time she tries to walk. Still some discomfort when she lays down in bed. 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 She walks from one end of the house to the other end. Does have some memory issues but they are not too much. Not had trouble with apt, bill payments, decreased driving. She is not sure if her metoprolol is tartrate or succinate she will call with confirmation. Bp is normal today. No problem-specific Assessment & Plan notes found for this encounter. PAST MEDICAL HISTORY Diagnosis Date HTN (hypertension) Hypercholesterolemia PAST SURGICAL HISTORY Procedure Laterality Date BREAST LUMPECTOMY HX left breast CORRECTION OF BUNION right foot HYSTERECTOMY HX FAMILY HISTORY Problem Relation Age of Onset Cancer Mother Heart Father Breast Cancer Sister Alzheimer's Disease Sister Social History Tobacco Use Smoking status: Never Smokeless tobacco: Never Substance Use Topics Alcohol use: No Drug use: No Past medical history, appointments, medications, allergies reviewed. Pertinent Lab/Diagnostic Studies are reviewed and discussed today Current Outpatient Medications: metoprolol tartrate, short acting, (LOPRESSOR) 25 mg tablet alendronate (FOSAMAX) 70 mg tablet lisinopril (ZESTRIL) 20 mg tablet rosuvastatin (CRESTOR) 10 mg tablet fluticasone (FLONASE) 50 mcg/actuation nasal spray [id number] 1-50-2.5-25-50 mg cap Zinc 50 mg tab ascorbic acid (CODY-C ORAL) SELENIUM ORAL aspirin, enteric coated (ASPIRIN, ENTERIC COATED) 81 mg EC tablet Docusate Sodium 100 mg tab psyllium (KONSYL) packet niacin ER (NIASPAN) 500 mg tablet Red Yeast Rice Extract 600 mg cap Review of Systems CONSTITUTIONAL: No fevers, chills night sweats, unintended weight loss CARDIOVASCULAR: No chest pain, dyspnea, palpitations, orthopnea, PND, ankle edema. PULM: No dyspnea, unexplained cough. GI: No dysphagia/odynophagia, problematic reflux, constipation, diarrhea, changes in stool habits, hematochezia, melena. : No new urinary complaints, including dysuria, gross hematuria or pyuria. NEURO: No new balance problems, peripheral weakness/paresthesias or numbness of concern. Physical Exam BP 134/80 Pulse 66 Resp 16 Wt 69 kg (152 lb 1.9 oz) BMI 23.82 kg/m General appearance: Well appearing, alert, in no acute distress, well nourished. Skin: Skin color, texture, turgor normal, no suspicious rashes or lesions Head: Normocephalic, no masses, lesions, tenderness or abnormalities Eyes: Anicteric sclera. Pupils are equally round and reactive to light. Extraocular movements are intact. Lungs: Lungs clear to auscultation. No wheezing, rhonchi, rales Heart: RRR without murmur, gallop, or rubs. Extremities: No deformities, edema, skin discoloration, clubbing or cyanosis. Good capillary refill. ASSESSMENT/PLAN: 1. Medicare annual wellness visit, subsequent - ICD9: V70.0, ICD10: Z00.00 (primary diagnosis) - Counseled on healthy diet and regular exercise 2. Essential hypertension - ICD9: 401.9, ICD10: I10 - Controlled - Recommend home blood pressure monitoring, to bring results to next visit - Encouraged sodium restriction, DASH or Mediterranean diet - Recommend regular aerobic exercise - LIPID PANEL BASIC - COMPLETE BLOOD COUNT - COMPREHENSIVE METABOLIC PANEL 3. Mixed hyperlipidemia - ICD9: 272.2, ICD10: E78.2 - Controlled - Counseled on healthy diet and regular exercise - LIPID PANEL BASIC - COMPLETE BLOOD COUNT - COMPREHENSIVE METABOLIC PANEL 4. Vitamin D deficiency - ICD9: 268.9, ICD10: E55.9 - VITAMIN D 25 HYDROXY 5. Memory deficits - ICD9: 780.93, ICD10: R41.3 Will do a geriatric assessment in the future for her. Mark Yeager MD documented in this encounter [facility] 05-29-2024 History of Present illness Narrative Program_ID:[id number] Access Code: [email or web address] URL: [email or web address] Date: 05-29-2024 Prepared By: Oleg Arguelles Program Notes Exercises - Squat with Chair Touch - 1 x daily - 7 x weekly - 4 sets - 10 reps - Clam with Resistance - 1 x daily - 7 x weekly - 4 sets - 10 reps - Straight Leg Raise - 1 x daily - 7 x weekly - 4 sets - 10 reps - Supine Hip Adduction Isometric with Ball - 1 x daily - 7 x weekly - 4 sets - 10 reps - Supine Heel Slide - 1 x daily - 7 x weekly - 4 sets - 10 reps Episode Visit Count: 4 Therapist That Will Accept/Oversee The Plan Of Care: Oleg Arguelles PT Start of Care Date: 05/01/24 Onset Date: 03/20/24 Plan of Care Certification Date: 05/01/24 Next Certification Due Date: 06/05/24 Patient Identified by Name and Date of : Yes REHABILITATION AND SPORTS THERAPY PHYSICAL THERAPY DISCONTINUANCE OF CARE PLAN OF CARE UPDATE: Assessment: Erinn Benson is discontinued from Physical Therapy services due to Patient/Client declining further intervention.. Patient was seen for 4 visits from Start of Care Date: 05/01/24 to 05/29/2024 and treatment included: Therapeutic exercise. Goals for Episode of Care: established 05/01/24 [place] in home exercise program. Perform sleeping without pain. Increased strength of LLE to equal to that of the RLE for decreased pain and improved knee support with ADL's Normal gait. SUBJECTIVE: Walking is better. Going up the steps she can have a little bit of a limp. Feels 70% improved overall. Functional Limitations: nothing Prior Level of Function: Independent without limitations Intake Information: Prescription present Pain: Pain Pain Level: 0 Pain Location: Knee - Left PROMIS Scales 05/29/2024 05/01/2024 Higher is Better Phys Func - Score 53 (within normal limits) 45 (within normal limits) Phys Func - Percentile 62 31 Self-Eff Symptom - Score 50 (Average) 45 (Average) Self-Eff Symptom - Percentile 50 31 T-scores: mean of general population = 50. 5 points is clinically meaningfully difference Percentiles provide an indication of how the patient's score ranks in relation to the general population. Higher percentile rankings indicate better function/quality of life. 50th percentile is the average of the general population and indicates half of respondents had a worse score. OBJECTIVE MEASURES WITH LEVEL OF FUNCTION: LE AROM L Knee Extension: 0 Degrees L Knee Flexion: 138 Degrees LE Strength L Hip Flexion (L2): 4/5 Dynamometer Strength Left Quadriceps Strength (lbs): 23 Gait is WNL TREATMENT: Therapeutic Exercise: 1: All objective measures taken this session 2: Sidelying clamshell GTB 3 x 10 3: Squats 3 x 10 4: Finalized HEP handout provided Skilled Intervention: Patient was educated in proper exercise technique and purpose for exercises. Correct performance of therapeutic exercises was facilitated with verbal and visual cuing. Billing Therapeutic Exercise Treatment Minutes: 30 Skilled Treatment Time Minutes (timed and untimed codes): 30 Total Session Time (minutes): 30 Session Start Time : 746 Session Stop Time : 816 Oleg Arguelles PT documented in this encounter [facility] 05-29-2024 Note HNO ID: [id number] Author: OLEG ARGUELLES PT Service: ? Author Type: Physical Therapist Type: Progress Notes Filed: 05/29/2024 08:21 Note Text: Episode Visit Count: 4 Therapist That Will Accept/Oversee The Plan Of Care: Oleg Arguelles PT Start of Care Date: 05/01/24 Onset Date: 03/20/24 Plan of Care Certification Date: 05/01/24 Next Certification Due Date: 06/05/24 Patient Identified by Name and Date of : Yes REHABILITATION AND SPORTS THERAPY PHYSICAL THERAPY DISCONTINUANCE OF CARE PLAN OF CARE UPDATE: Assessment: Erinn Benson is discontinued from Physical Therapy services due to Patient/Client declining further intervention.. Patient was seen for 4 visits from Start of Care Date: 05/01/24 to 05/29/2024 and treatment included: Therapeutic exercise. Goals for Episode of Care: established 05/01/24 [place] in home exercise program. Perform sleeping without pain. Increased strength of LLE to equal to that of the RLE for decreased pain and improved knee support with ADL's Normal gait. SUBJECTIVE: Walking is better. Going up the steps she can have a little bit of a limp. Feels 70% improved overall. Functional Limitations: nothing Prior Level of Function: Independent without limitations Intake Information: Prescription present Pain: Pain Pain Level: 0 Pain Location: Knee - Left PROMIS Scales 05/29/2024 05/01/2024 Higher is Better Phys Func - Score 53 (within normal limits) 45 (within normal limits) Phys Func - Percentile 62 31 Self-Eff Symptom - Score 50 (Average) 45 (Average) Self-Eff Symptom - Percentile 50 31 T-scores: mean of general population = 50. 5 points is clinically meaningfully difference Percentiles provide an indication of how the patient's score ranks in relation to the general population. Higher percentile rankings indicate better function/quality of life. 50th percentile is the average of the general population and indicates half of respondents had a worse score. OBJECTIVE MEASURES WITH LEVEL OF FUNCTION: LE AROM L Knee Extension: 0 Degrees L Knee Flexion: 138 Degrees LE Strength L Hip Flexion (L2): 4/5 Dynamometer Strength Left Quadriceps Strength (lbs): 23 Gait is WNL TREATMENT: Therapeutic Exercise: 1: All objective measures taken this session 2: Sidelying clamshell GTB 3 x 10 3: Squats 3 x 10 4: Finalized HEP handout provided Skilled Intervention: Patient was educated in proper exercise technique and purpose for exercises. Correct performance of therapeutic exercises was facilitated with verbal and visual cuing. Billing Therapeutic Exercise Treatment Minutes: 30 Skilled Treatment Time Minutes (timed and untimed codes): 30 Total Session Time (minutes): 30 Session Start Time : 746 Session Stop Time : 816 Oleg Arguelles PT [facility] 05-22-2024 History of Present illness Narrative Program_ID:[id number] Access Code: [email or web address] URL: [email or web address] Date: 05-22-2024 Prepared By: Oleg Arguelles Program Notes Exercises - Active Straight Leg Raise with Quad Set - 1 x daily - 7 x weekly - 4 sets - 10 reps - Modified Sidelying Hip Abduction - 1 x daily - 7 x weekly - 4 sets - 10 reps - Long Sitting Quad Set with Towel Roll Under Heel - 1 x daily - 7 x weekly - 4 sets - 10 reps - Sit to Stand - 2 x daily - 7 x weekly - 2 sets - 10 reps - Seated Long Arc Quad - 2 x daily - 7 x weekly - 2 sets - 10 reps - Bent Knee Fallouts - 2 x daily - 7 x weekly - 2 sets - 10 reps - Supine Figure 4 Piriformis Stretch - 1 x daily - 7 x weekly - 1 sets - 3 reps - Supine Piriformis Stretch with Foot on Ground - 1 x daily - 7 x weekly - 1 sets - 3 reps Episode Visit Count: 3 Therapist That Will Accept/Oversee The Plan Of Care: Oleg Arguelles PT Start of Care Date: 05/01/24 Onset Date: 03/20/24 Plan of Care Certification Date: 05/01/24 Next Certification Due Date: 06/05/24 Patient Identified by Name and Date of : Yes REHABILITATION AND SPORTS THERAPY PHYSICAL THERAPY TREATMENT NOTE ASSESSMENT: Eirnn Benson tolerated the session with fatigue and expected muscle soreness. She demonstrated difficulty with step ups on 6 inch step if pt did not utilize her hands on the // bars . The patient will continue to benefit from ongoing skilled physical therapy to progress toward set goals. PLAN FOR NEXT VISIT: Continue with LLE strengthening. Consider adding more standing exercises. PN SUBJECTIVE: Pt feels like she is improving. She does not have the fear of stepping with her L leg when walking now. Pain: Pain Pain Level: 0 Pain Location: Knee - Left OBJECTIVE MEASURES WITH LEVEL OF FUNCTION: Improved ability to perform SL clamshells after hip stretching. TREATMENT: Therapeutic Exercise: 1: Seated SciFit stepper x 6 minutes, seat # 11 (1:1 throughout. Discussed current HEP and subjective collected) 2: *Supine figure 4 stretch 3x30 seconds LLE 3: *Supine piriformis stretch 3x30 secodns LLE 4: SL clamshells 2x10 LLE 5: Step ups on 6 inch step 2x10 LLE 6: Lateral step ups on 4 inch step 2x10 LLE 7: STS 3x10 8: Hip adduction squeeze with ball 3x10 Skilled Intervention: Patient was educated in proper exercise technique and purpose for exercises. Reviewed and educated patient on additions/changes for home exercise program as above (*). Skilled judgment was used in selection of appropriate interventions. Provided written instruction for home exercise program to facilitate proper performance and compliance. Correct performance of therapeutic exercises was facilitated with verbal and visual cuing. Billing Therapeutic Exercise Treatment Minutes: 47 Skilled Treatment Time Minutes (timed and untimed codes): 47 Total Session Time (minutes): 47 Session Start Time : 757 Session Stop Time : 844 Rakel Ahumada, SLOTS MANAGER Oleg Arguelles PT documented in this encounter [facility] 05-22-2024 Note HNO ID: [id number] Author: OLEG ARGUELLES PT Service: ? Author Type: Physical Therapist Type: Progress Notes Filed: 05/22/2024 09:18 Note Text: Episode Visit Count: 3 Therapist That Will Accept/Oversee The Plan Of Care: Oleg Arguelles PT Start of Care Date: 05/01/24 Onset Date: 03/20/24 Plan of Care Certification Date: 05/01/24 Next Certification Due Date: 06/05/24 Patient Identified by Name and Date of : Yes REHABILITATION AND SPORTS THERAPY PHYSICAL THERAPY TREATMENT NOTE ASSESSMENT: Erinn Benson tolerated the session with fatigue and expected muscle soreness. She demonstrated difficulty with step ups on 6 inch step if pt did not utilize her hands on the // bars . The patient will continue to benefit from ongoing skilled physical therapy to progress toward set goals. PLAN FOR NEXT VISIT: Continue with LLE strengthening. Consider adding more standing exercises. PN SUBJECTIVE: Pt feels like she is improving. She does not have the fear of stepping with her L leg when walking now. Pain: Pain Pain Level: 0 Pain Location: Knee - Left OBJECTIVE MEASURES WITH LEVEL OF FUNCTION: Improved ability to perform SL clamshells after hip stretching. TREATMENT: Therapeutic Exercise: 1: Seated SciFit stepper x 6 minutes, seat # 11 (1:1 throughout. Discussed current HEP and subjective collected) 2: *Supine figure 4 stretch 3x30 seconds LLE 3: *Supine piriformis stretch 3x30 secodns LLE 4: SL clamshells 2x10 LLE 5: Step ups on 6 inch step 2x10 LLE 6: Lateral step ups on 4 inch step 2x10 LLE 7: STS 3x10 8: Hip adduction squeeze with ball 3x10 Skilled Intervention: Patient was educated in proper exercise technique and purpose for exercises. Reviewed and educated patient on additions/changes for home exercise program as above (*). Skilled judgment was used in selection of appropriate interventions. Provided written instruction for home exercise program to facilitate proper performance and compliance. Correct performance of therapeutic exercises was facilitated with verbal and visual cuing. Billing Therapeutic Exercise Treatment Minutes: 47 Skilled Treatment Time Minutes (timed and untimed codes): 47 Total Session Time (minutes): 47 Session Start Time : 757 Session Stop Time : 844 RAÚL Palacio PT [facility] 05-15-2024 History of Present illness Narrative Program_ID:[id number] Access Code: [email or web address] URL: [email or web address] Date: 05-15-2024 Prepared By: Oleg Arguelles Program Notes Exercises - Active Straight Leg Raise with Quad Set - 1 x daily - 7 x weekly - 4 sets - 10 reps - Modified Sidelying Hip Abduction - 1 x daily - 7 x weekly - 4 sets - 10 reps - Long Sitting Quad Set with Towel Roll Under Heel - 1 x daily - 7 x weekly - 4 sets - 10 reps - Sit to Stand - 2 x daily - 7 x weekly - 2 sets - 10 reps - Seated Long Arc Quad - 2 x daily - 7 x weekly - 2 sets - 10 reps - Bent Knee Fallouts - 2 x daily - 7 x weekly - 2 sets - 10 reps Episode Visit Count: 2 Therapist That Will Accept/Oversee The Plan Of Care: Oleg Arguelles PT Start of Care Date: 05/01/24 Onset Date: 03/20/24 Plan of Care Certification Date: 05/01/24 Next Certification Due Date: 06/05/24 Patient Identified by Name and Date of : Yes REHABILITATION AND SPORTS THERAPY PHYSICAL THERAPY TREATMENT NOTE ASSESSMENT: Erinn Benson tolerated the session with fatigue and expected muscle soreness. She demonstrated difficulty with second round of sit to stands due to fatigue. The patient will continue to benefit from ongoing skilled physical therapy to progress toward set goals. PLAN FOR NEXT VISIT: Asses response to additional strengthening given for HEP. Possible try step ups SUBJECTIVE: Pt reports that her L knee feels better. Pt states that she had some discomfort with walking in today, thinks its due to the rain. Pain: Pain Pain Level: 0 Pain Location: Knee - Left OBJECTIVE MEASURES WITH LEVEL OF FUNCTION: No extension lag with LAQ. TREATMENT: Therapeutic Exercise: 1: Seated SciFit stepper x 5 minutes, seat # 11 (1:1 throughout. Discussed current HEP and subjective collected) 2: Quad sets 2x10 3: SL hip abduction 2x10 LLE 4: Supine SLR 2x10 LLE 5: *Hooklying clamshells 2x10 LLE (unable to complete in SL) 6: *LAQ 2x10 LLE 7: *STS 2x10 without use of hands Skilled Intervention: Patient was educated in proper exercise technique and purpose for exercises. Reviewed and educated patient on additions/changes for home exercise program as above (*). Skilled judgment was used in selection of appropriate interventions. Provided written instruction for home exercise program to facilitate proper performance and compliance. Correct performance of therapeutic exercises was facilitated with verbal and visual cuing. Billing Therapeutic Exercise Treatment Minutes: 47 Skilled Treatment Time Minutes (timed and untimed codes): 47 Total Session Time (minutes): 47 Session Start Time : 756 Session Stop Time : 843 RAÚL Palacio PT documented in this encounter [facility] 05-15-2024 Note HNO ID: [id number] Author: OLEG ARGUELLES PT Service: ? Author Type: Physical Therapist Type: Progress Notes Filed: 05/15/2024 13:07 Note Text: Episode Visit Count: 2 Therapist That Will Accept/Oversee The Plan Of Care: lOeg Arguelles PT Start of Care Date: 05/01/24 Onset Date: 03/20/24 Plan of Care Certification Date: 05/01/24 Next Certification Due Date: 06/05/24 Patient Identified by Name and Date of : Yes REHABILITATION AND SPORTS THERAPY PHYSICAL THERAPY TREATMENT NOTE ASSESSMENT: Erinn Benson tolerated the session with fatigue and expected muscle soreness. She demonstrated difficulty with second round of sit to stands due to fatigue. The patient will continue to benefit from ongoing skilled physical therapy to progress toward set goals. PLAN FOR NEXT VISIT: Asses response to additional strengthening given for HEP. Possible try step ups SUBJECTIVE: Pt reports that her L knee feels better. Pt states that she had some discomfort with walking in today, thinks its due to the rain. Pain: Pain Pain Level: 0 Pain Location: Knee - Left OBJECTIVE MEASURES WITH LEVEL OF FUNCTION: No extension lag with LAQ. TREATMENT: Therapeutic Exercise: 1: Seated SciFit stepper x 5 minutes, seat # 11 (1:1 throughout. Discussed current HEP and subjective collected) 2: Quad sets 2x10 3: SL hip abduction 2x10 LLE 4: Supine SLR 2x10 LLE 5: *Hooklying clamshells 2x10 LLE (unable to complete in SL) 6: *LAQ 2x10 LLE 7: *STS 2x10 without use of hands Skilled Intervention: Patient was educated in proper exercise technique and purpose for exercises. Reviewed and educated patient on additions/changes for home exercise program as above (*). Skilled judgment was used in selection of appropriate interventions. Provided written instruction for home exercise program to facilitate proper performance and compliance. Correct performance of therapeutic exercises was facilitated with verbal and visual cuing. Billing Therapeutic Exercise Treatment Minutes: 47 Skilled Treatment Time Minutes (timed and untimed codes): 47 Total Session Time (minutes): 47 Session Start Time : 756 Session Stop Time : 843 Rakel Ahumada SLOTS MANAGER Oleg Arguelles, PT [facility] 05-09-2024 Telephone encounter Note Patient notified and verbalized understanding. Cristel Barrow MA [facility] 05-09-2024 Miscellaneous Notes Patient notified and verbalized understanding. Cristel Barrow MA Called and left message for patient to call office back for results. 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 It is a little complicated I know but really nothing much to worry. We will follow up closely and seek for endo consult if needed RegardsMark MD documented in this encounter [facility] 05-07-2024 Telephone encounter Note Called and left message for patient to call office back for results. 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 It is a little complicated I know but really nothing much to worry. We will follow up closely and seek for endo consult if needed Mark Mooney MD [facility] 05-01-2024 History of Present illness Narrative Program_ID:[id number] Access Code: [email or web address] URL: [email or web address] Date: 05-01-2024 Prepared By: Oleg Arguelles Program Notes Exercises - Active Straight Leg Raise with Quad Set - 1 x daily - 7 x weekly - 4 sets - 10 reps - Modified Sidelying Hip Abduction - 1 x daily - 7 x weekly - 4 sets - 10 reps - Long Sitting Quad Set with Towel Roll Under Heel - 1 x daily - 7 x weekly - 4 sets - 10 reps Episode Visit Count: 1 Therapist That Will Accept/Oversee The Plan Of Care: Oleg Arguelles PT Start of Care Date: 05/01/24 Onset Date: 03/20/24 Plan of Care Certification Date: 05/01/24 Next Certification Due Date: 06/05/24 Patient Identified by Name and Date of : Yes REHABILITATION AND SPORTS THERAPY PHYSICAL THERAPY EVALUATION PLAN OF CARE: Assessment: Erinn Benson presents with chief complaint of L knee pain that interferes with . She presents with impairments in independence in exercise, overall function, and strength. PROMIS (Patient-Reported Outcomes Measurement Information System) scores were reviewed and identified as within normal limits. Prognosis for therapy is Good due to: current objective clinical presentation . Pt demonstrates weakness of the L glutes, hip flexors, and quads as primary findings this session. She will benefit from skilled therapy services to meet the goals established for this plan of care as noted below. Goals for Episode of Care: established 05/01/24 [place] in home exercise program. Perform sleeping without pain. Increased strength of LLE to equal to that of the RLE for decreased pain and improved knee support with ADL's Normal gait. Time Frame for Goals and Treatment : 06/26/24 Planned Interventions, Frequency, and Duration: Current Frequency: 1x/week Duration: 4 weeks Total Number of Visits Planned: 4 Planned Treatment Interventions: Therapeutic exercise (52242), Neuromuscular re-education (60811), Manual therapy (23925), Therapeutic activities (75113), Self-custodial management (84066), Gait Training (68349), Patient/Family/Caregiver Education PLAN FOR NEXT VISIT: Continue with LLE strengthening Patient demonstrates good understanding of plan of care and treatment. The above goals and plan of care were discussed and agreed upon by patient/family. SUBJECTIVE: The knee is not bothering her as much now. It is more of an aching in the leg when waking. No longer has a sharp pain in the L knee that she had before. Wakes up at night due to the pain. Hurt the knee when she was 67. had a snapping sensation in the knee. Prior Level of Function: Independent without limitations Intake Information: Prescription present Previous Treatment: TENS Pain: Pain Pain Level: 0 Pain Location: Knee - Left PROMIS Scales 05/01/2024 Higher is Better Phys Func - Score 45 (within normal limits) Phys Func - Percentile 31 Self-Eff Symptom - Score 45 (Average) Self-Eff Symptom - Percentile 31 T-scores: mean of general population = 50. 5 points is clinically meaningfully difference Percentiles provide an indication of how the patient's score ranks in relation to the general population. Higher percentile rankings indicate better function/quality of life. 50th percentile is the average of the general population and indicates half of respondents had a worse score. OBJECTIVE MEASURES WITH LEVEL OF FUNCTION: LE AROM R Knee Extension: 0 Degrees R Knee Flexion: 135 Degrees L Knee Extension: 0 Degrees (Needs to complete a quad set to reach full extension) L Knee Flexion: 136 Degrees LE Strength R LE Strength: Grossly 4+/5 L Hip Flexion (L2): 3/5 L Hip ABduction: 3-/5 Dynamometer Strength Right Quadriceps Strength (lbs): 29.8 Left Quadriceps Strength (lbs): 20.3 Gait Gait Observation: Slight antalgic gait pattern Waist / Hip Waist Circumference: 35 Inches Hip Circumference: 40.75 Inches Waist to Hip Ratio:: 0.86 [place] waist/hip ratio: Female: 0.8 or Less Functional Performance Test Results 5 Times Sit to Stand Test : 17.35 sec Timed Up and Go (sec): 9.4 sec Pt demonstrates placing RLE behind LLE during STS transfers Education: Education Learning Preferences: Demonstration, Explanation, Performance, Printed Materials Barriers: None Learning/educational needs: Home exercise program, Plan of Care, Changes in Plan of Care Education Provided: Yes, see treatment interventions for education provided Education Provided To: Patient Education Mode/Type: Demonstration, Explanation/Discussion, Literature/Printed Materials, Performance Response to Education/Teach Back: States/Identifies, Return Demonstration Knee OA Overview Class: Completed Nutrition and Weight Management Class: Completed TREATMENT: PT Treatment Interventions: Therapeutic Exercise, Self-[facility] Management Evaluation Therapeutic Exercise: 1: Discussed exam findings, purpose of the HEP and the HEP handout was provided to the pt. HEP discussed in detail with how to safely and properly perform each therapeutic exercise. 2: Supine SLR x 7 reps (muscles fatigue at this point) 3: Sidelying hip abd x 7 (muscles fatigue at this point) 4: Quad set with towel roll under ankle x 10 holding 5 sec each Skilled Intervention: Patient was educated in proper exercise technique and purpose for exercises. Provided written instruction for home exercise program to facilitate proper performance and compliance. Correct performance of therapeutic exercises was facilitated with verbal and visual cuing. Self-[facility] Management: 1: Discussed proper sleeping position in sidelying using 2 pillows between the knees to avoid tension slong hip musculature of the L leg. Discussed avoiding sleeping with a pillow under the knee as this may increase stiffness of the knee joint and further limit knee extension. Skilled Intervention: Skilled judgment in the selection of proper modification for activity of daily living/home management based on clinical presentation, deficits, and needs. Billing Therapeutic Exercise Treatment Minutes: 20 Self-Care/Home Management Treatment Minutes: 5 Skilled Treatment Time Minutes (timed and untimed codes): 66 Total Session Time (minutes): 66 Session Start Time : 952 Session Stop Time : 1058 Oleg Arguelles PT documented in this encounter [facility] 04-11-2024 Telephone encounter Note Patient notified and verbalized understanding. PSS, please contact patient to schedule PT. Thanks, Cristel Barrow MA [facility] 04-11-2024 Miscellaneous Notes Patient notified and verbalized understanding. PSS, please contact patient to schedule PT. Thanks, Cristel Barrow MA Sports medicine can help with giving shots to different joints to help decrease the inflammation, they also help deal with ligaments and tendons. You dont have to be playing a sport to see them. Lets start with Physical Therapy, I am placing the orders. Regards, Mark Yeager MD Pt called and is notified of providers results and instructions. Pt voices understanding. Pt would like to know what the difference is between sports medicine and PT? She reports at 74 she isn't playing any sports. Roxanne Barclay, TYLER There are 2 messages below with results. Please see that pt gets both when she calls back. Bria Jean LPN ----- Message from Mark Yeager MD sent at 04/06/2024 4:55 PM EDT ----- She has mild osteoarthritis of the knee joint, She can see the sports medicine as ordered of see Physical Therapy If ok for Physical Therapy then start a phone encounter and let me know Regards, Mark Yeager MD Fabienne You calcium is very high. I want you to stop the calcium medications you are taking Give the following blood tests. Regards, Mark Yeager MD documented in this encounter [facility] 04-10-2024 Telephone encounter Note Sports medicine can help with giving shots to different joints to help decrease the inflammation, they also help deal with ligaments and tendons. You dont have to be playing a sport to see them. Lets start with Physical Therapy, I am placing the orders. Regards, Mark Yeager MD [facility] 04-09-2024 Telephone encounter Note Pt called and is notified of providers results and instructions. Pt voices understanding. Pt would like to know what the difference is between sports medicine and PT? She reports at 74 she isn't playing any sports. Roxanne Barclay, TYLER [facility] 04-09-2024 Telephone encounter Note There are 2 messages below with results. Please see that pt gets both when she calls back. Bria Jean LPN [facility] 04-09-2024 Telephone encounter Note ----- Message from Makr Yeager MD sent at 04/06/2024 4:55 PM EDT ----- She has mild osteoarthritis of the knee joint, She can see the sports medicine as ordered of see Physical Therapy If ok for Physical Therapy then start a phone encounter and let me know Regards, Mark Yeager MD [facility] 04-03-2024 Telephone encounter Note Fabienne You calcium is very high. I want you to stop the calcium medications you are taking Give the following blood tests. Regards, Mark Yeager MD [facility] 04-03-2024 History of Present illness Narrative Radiology Service Progress Note PATIENT NAME: Erinn Benson DATE OF SERVICE: April 03, 2024 TIME: 10:23 AM PATIENT IDENTITY VERIFICATION COMPLETED USING TWO (2) IDENTIFIERS: Name and Date of confirmed by patient verbally. FALL SCREENING: Has the patient had 2 falls in the last year or 1 fall with injury or currently using an Ambulatory Assistive Device (Walker, Cane, Wheelchair, Crutches, etc.)? No PATIENT GENDER DATA: Female. status: : No status: NO. PATIENT RELEVANT IMPLANT DATA REVIEWED: Not Applicable PATIENT PRESENTS WITH AN IMPLANTABLE OR ATTACHED COLOR DIPPER: No RADIOLOGY DEPARTMENT: General X-ray: Exam(s) Completed: Lower Extremity X-Ray(s): Knee, AP / Lat / Tunne / Merchant Left and Wt. Bearing PERIPHERAL IV DATA: Not applicable SIGNED BY: RT Saroj(R) April 03, 2024 10:23 AM documented in this encounter [facility] 04-03-2024 Instructions Mark Yeager MD - 04/03/2024 9:30 AM EDT Metoprolol may be causing some lower heart rate called bradycardia which may make you tired when you try to exercise or just tired. I would like for you to try to see if tapering off the metoprolol would help. I am sending short acting metoprolol, 25 mgs 2 times a day , take that for 3 week and then cut down to taking it for 25 mgs once a day for 3 weeks and then 25 mgs half a pill for 3 weeks and then stop. If you feel palpitation at anytime and want to get back on the medication then let me know and I will send years worth of what you have taken in the past. Regards, Mark Yeager MD documented in this encounter [facility] 04-03-2024 History of Present illness Narrative Reason for Visit Patient presents with: 6 mo follow up: routine Erinn Benson is a 74 year old female who presents here today for Above Complaints.. Health Maintenance Depression Screening Anxiety Screening RSV Vaccine(1 - 1-dose 60+ series) DTaP,Tdap,Td Vaccine(1 - Tdap) Covid-19 Vaccine(2022- season) Advance Directive Discussion HPI Erinn is a very pleasant 74-year-old with a past medical history of hypertension, hyperlipidemia, osteopenia of multiple sites, allergies. Osteopenia: she is on fosamax and is tolerating it well. No major side effects, she is taking calcium once a day, and vitamin d And she is doing the mini trampoline that she likes to use, and she walks her dogs. HTN: BP controlled today. It is on the lower side at 110/60, on metoprolol at 25 mgs long acting, her heart rate is 59 and she often feels tired, we will cut down and taper off as needed. Checks BP at home. Compliant with medications. Denies any chest pain, palpitations, SOB, swelling in the feet. Careful with diet to avoid salt, trying to eat more fruits and vegetables, exercises regularly HPL: Reviewed test results with patient , takes medications regularly , does not report side effects. Conscious to avoid red meats, full fat dairy and its by products. Exercising 3 to 5 times a week. Bradycardia today. Likely from the use of metoprolol which was started due to palpitations She has a daughter who would be her power of channel marketing specialist- Shefali Johnson Knee pain: for the past 2/3 weeks she has been having trouble with walking due to pain in the left , lateral knee. Standing up does not hurt. Any type of weight bearing causes her to have pain. When the lateral meniscus is moved she has pain. No problem-specific Assessment & Plan notes found for this encounter. PAST MEDICAL HISTORY No date: HTN (hypertension) No date: Hypercholesterolemia PAST SURGICAL HISTORY No date: BREAST LUMPECTOMY HX Comment: left breast No date: CORRECTION OF BUNION Comment: right foot No date: HYSTERECTOMY HX FAMILY HISTORY Problem Relation Age of Onset Cancer Mother Heart Father Breast Cancer Sister Alzheimer's Disease Sister Social History Tobacco Use Smoking status: Never Smokeless tobacco: Never Substance Use Topics Alcohol use: No Drug use: No Past medical history, appointments, medications, allergies reviewed. Pertinent Lab/Diagnostic Studies are reviewed and discussed today Current Outpatient Medications: alendronate (FOSAMAX) 70 mg tablet lisinopril (ZESTRIL) 20 mg tablet rosuvastatin (CRESTOR) 10 mg tablet metoprolol succinate ER (TOPROL XL) 25 mg 24 hr tablet Zinc 50 mg tab ascorbic acid (CODY-C ORAL) Red Yeast Rice Extract 600 mg cap fluticasone (FLONASE) 50 mcg/actuation nasal spray [id number] 1-50-2.5-25-50 mg cap SELENIUM ORAL aspirin, enteric coated (ASPIRIN, ENTERIC COATED) 81 mg EC tablet Docusate Sodium 100 mg tab psyllium (KONSYL) packet niacin ER (NIASPAN) 500 mg tablet Review of Systems CONSTITUTIONAL: No fevers, chills night sweats, unintended weight loss CARDIOVASCULAR: No chest pain, dyspnea, palpitations, orthopnea, PND, ankle edema. PULM: No dyspnea, unexplained cough. GI: No dysphagia/odynophagia, problematic reflux, constipation, diarrhea, changes in stool habits, hematochezia, melena. : No new urinary complaints, including dysuria, gross hematuria or pyuria. NEURO: No new balance problems, peripheral weakness/paresthesias or numbness of concern. Physical Exam BP 110/60 Pulse (!) 59 Resp 16 Wt 70.3 kg (155 lb) BMI 24.28 kg/m General appearance: Well appearing, alert, in no acute distress, well nourished. Skin: Skin color, texture, turgor normal, no suspicious rashes or lesions Head: Normocephalic, no masses, lesions, tenderness or abnormalities Eyes: Anicteric sclera. Pupils are equally round and reactive to light. Extraocular movements are intact. Lungs: Lungs clear to auscultation. No wheezing, rhonchi, rales Heart: RRR without murmur, gallop, or rubs. Extremities: No deformities, edema, skin discoloration, clubbing or cyanosis. Good capillary refill. ASSESSMENT/PLAN: 1. Essential hypertension - ICD9: 401.9, ICD10: I10 (primary diagnosis) - Controlled - Recommend home blood pressure monitoring, to bring results to next visit - Encouraged sodium restriction, DASH or Mediterranean diet - Recommend regular aerobic exercise 2. Screening for depression - ICD9: V79.0, ICD10: Z13.31 - DEPRESSION SCREENING 3. Encounter for screening examination for other mental health and behavioral disorders - ICD9: V79.8, ICD10: Z13.39 - ANXIETY SCREENING 4. Mixed hyperlipidemia - ICD9: 272.2, ICD10: E78.2 - Controlled - Counseled on healthy diet and regular exercise 5. Osteopenia, unspecified location - ICD9: 733.90, ICD10: M85.80 - Reviewed the need for Calcium and Vitamin D supplements and weight bearing exercise as tolerated Mark Yeager MD documented in this encounter [facility] 10-19-2023 Miscellaneous Notes Pt notified of results & voiced understanding. Laine Yeh LPN Called and left a voicemail for the Patient to call back and ask for a nurse to receive the providers message. Roxanne Barclay RN Please call patient and inform her that all labs are stable/unremarkable, no further intervention is needed at this time. documented in this encounter [facility] 10-03-2023 History of Present illness Narrative CC: Patient presents with: F/U 6 months: 6 month follow up-HTN HPI Erinn Benson is a 73 year old female who presents today for 6 mo routine f/u and review labs. LV was with myself on 04/01/23. Recently obtained labs- CBC, AST, and ALT- all WNL. HTN: Ms. Benson indicates a history of hypertension and states that she is feeling well and denies any symptoms referable to elevated blood pressure. Does note that she gets a little winded when she goes up a hill. Specifically denies headache, chest pain, palpitations, and peripheral edemaChecks BP every once in awhile and generally seems to be WNL. Patient denies any side effects of her medication(s) and is compliant with their regimen. Endorses regular aerobic exercise, typically walking or on the trampoline. Does not watch her diet for sodium, low fat and low cholesterol most of the time. Last 3 Encounter BP Readings: Date: BP: 10/03/2023 112/64 04/01/2023 128/72 03/10/2023 120/72 Hypertriglyceridemia/HLD: Hyperlipidemia. Ms. Benson reports doing well on current therapy of rosuvastatin (Crestor) and red yeast rice. Reports occasional side effect(s) of muscle cramps. Her most recent lipid panels are: Cholesterol, Total (mg/dL) Date Value 09/27/2022 166 10/03/2021 160 12/04/2020 155 HDL Cholesterol (mg/dL) Date Value 09/27/2022 40 10/03/2021 38 12/04/2020 45 LDL Cholesterol (mg/dL) Date Value 09/27/2022 87 10/03/2021 93 12/04/2020 84 Triglyceride (mg/dL) Date Value 09/27/2022 195 10/03/2021 144 12/04/2020 131 Osteopenia- on fosamax once weekly, but notes that she misplaced her rx so she's been off of it a couple months. Still taking extra calcium pill. Last DEXA 10/14, and at that time showed improvement from osteoporosis to osteopenia REVIEW OF SYSTEMS See HPI All other systems negative. PAST MEDICAL HISTORY Diagnosis Date HTN (hypertension) Hypercholesterolemia PAST SURGICAL HISTORY Procedure Laterality Date BREAST LUMPECTOMY HX left breast CORRECTION OF BUNION right foot HYSTERECTOMY HX ALLERGIES Tylenol [Acetaminophen] MEDICATIONS metoprolol succinate ER (TOPROL XL) 25 mg 24 hr tablet Take 1 tablet by mouth once daily. fluticasone (FLONASE) 50 mcg/actuation nasal spray Use 2 Sprays in each nostril once daily. Rinse mouth after use. alendronate (FOSAMAX) 70 mg tablet TAKE 1 TABLET BY MOUTH EVERY WEEK ON AN EMPTY STOMACH DO NOT LIE DOWN FOR 30MIN [id number] 1-50-2.5-25-50 mg cap Take by mouth once daily. lisinopril (ZESTRIL, PRINIVIL) 20 mg tablet Take 1 tablet by mouth once daily. rosuvastatin (CRESTOR) 10 mg tablet TAKE 1 TABLET BY MOUTH EVERYDAY AT BEDTIME Zinc 50 mg tab Take 1 tablet by mouth once daily. ascorbic acid (CODY-C ORAL) Take by mouth. aspirin, enteric coated (ASPIRIN, ENTERIC COATED) 81 mg EC tablet Take 1 tablet by mouth once daily. Docusate Sodium 100 mg tab Take 100 mg by mouth once daily. niacin ER (NIASPAN) 500 mg tablet Take 1 tablet by mouth daily at bedtime. Red Yeast Rice Extract 600 mg cap Take 1 capsule by mouth once daily. SELENIUM ORAL Take by mouth. psyllium (KONSYL) packet Take 1 Packet by mouth once daily. FAMILY HISTORY Problem Relation Age of Onset Cancer Mother Heart Father Breast Cancer Sister Alzheimer's Disease Sister Social History Tobacco Use Smoking status: Never Smokeless tobacco: Never Substance Use Topics Alcohol use: No Drug use: No PHYSICAL EXAM BP 112/64 (BP Site: Right Arm, BP Position: Sitting, BP Cuff Size: Large Adult) Temp 36.8 C (98.3 F) Resp 12 Ht 170.2 cm (5' 7) Wt 67.1 kg (148 lb) BMI 23.18 kg/m General Appearance: well appearing, in no acute distress, alert Psych: mood and affect broad and appropriate Skin: Skin color, texture, turgor normal for age Lungs: Lungs clear to auscultation. No wheezing, rhonchi, rales. Heart: RRR without murmur, gallop, or rubs. Extremities: No gross deformities, significant edema, skin discoloration, clubbing or cyanosis. Neurological: Gait normal. No focal neurological deficits. Sensation grossly intact. ASSESSMENT/PLAN: 1. Essential hypertension - ICD9: 401.9, ICD10: I10 (primary diagnosis) - Controlled - Continue current medications; refills provided per patient request - Recommend home blood pressure monitoring, to bring results to next visit - Encouraged sodium restriction, DASH or Mediterranean diet - Recommend regular aerobic exercise - LISINOPRIL 20 MG TABLET 2. Mixed hyperlipidemia - ICD9: 272.2, ICD10: E78.2 - Control undetermined, due for labs - Continue on statin; discussed that she can go ahead and discontinue red yeast rice, as there is an increased risk of rhabdomyolysis/muscle effects with the combination. Patient expressed understanding and agrees - Counseled on healthy diet and regular exercise - ROSUVASTATIN 10 MG TABLET - LIPID PANEL BASIC 3. Osteopenia of multiple sites - ICD9: 733.90, ICD10: M85.89 -Improved on most recent DEXA in 10/14. Continue tx with alendronate (Fosamax). Refills provided, as patient reports that she misplaced her last prescription - Reviewed the need for Calcium and Vitamin D supplements and weight bearing exercise as tolerated - ALENDRONATE 70 MG TABLET 4. Constipation, unspecified constipation type - ICD9: 564.00, ICD10: K59.00 Has always struggled with this-will check thyroid labs - TSH BLD 5. Hypercalcemia - ICD9: 275.42, ICD10: E83.52 Mildly elevated ionized calcium on last set of labs. Will check updated levels, as well as vitamin D, PTH, and thyroid levels - TSH BLD - PTH INTACT BLD - VITAMIN D 25 HYDROXY Follow-up 6 months Medicare annual wellness visit, discuss colonoscopy Prescription instructions reviewed with patient as applicable. Potential red flag symptoms discussed with the patient. Reviewed appropriate action plan to take if red flag symptoms occur. Patient agreeable to treatment plan. Cristel Plummer PA-C documented in this encounter [facility] 04-20-2023 Miscellaneous Notes Pt called and is notified of providers results and instructions. Pt voices understanding. Pt is going to come in and get lab drawn now. Pt reports she takes an OTC Calcium supplement for Osteoporosis and low Ca level. She didn't know what dose but will let us know when she goes home. Roxanne Barclay RN Please call patient and let her know her labswere unremarkable aside from calcium being a bit elevated. I'm going to add on additional lab called ionized calcium to evaluate this further, if she can have this done in the near future. Cristel Plummer PA-C documented in this encounter [facility] 04-01-2023 History of Present illness Narrative CC: Patient presents with: Recheck: 6 month follow up HPI Erinn Benson is a 73 year old female who presents today for 6-month follow-up. Last visit was with Dr. Yeager on 10/01/2022. In the interim, patient was evaluated in [facility] on 03/10/2023 for rash on right thigh. She was empirically treated for suspected erythema migrans, and covered for treatment of Lyme disease with doxycycline course x 14 days. Rash has resolved entirely. No residual symptoms. Hypertriglyceridemia, hyperlipidemia -TGs mildly elevated at prior visit at 195. Currently on regimen ofrosuvastatin, niacin and red yeast rice. Hypertension: Ms. Benson indicates a history of hypertension and states that she is feeling well and denies any symptoms referable to elevated blood pressure. Specifically denies headache, chest pain, palpitations, dyspnea, and peripheral edema. Patient denies any side effects of her medication(s) and is compliant with their regimen. Patient does not check her BP routinely. She does regular aerobic exercise, between using trampoline, walking dogs. She does not diet for sodium, low fat and low cholesterol most of the time. Last 3 Encounter BP Readings: Date: BP: 03/10/2023 120/72 12/20/2022 142/94 10/01/2022 126/76 Osteoporosis, on Fosamax weekly-last DEXA 10/04/2022, which revealed improvement, now classified as osteopenia Indeterminate asymmetry was noted in the right breast in 10/14. Diagnostic mammogram and ultrasound right breast were performed, which reaffirm benign etiology (benign duct ectasia) REVIEW OF SYSTEMS GENERAL: Negative for malaise, significant weight loss and fever CARDIOVASCULAR: SEE HPI NEURO: No headaches, visual changes, numbness/weakness/tingling, dizziness, tremors or involuntary movements, syncope, paralysis, or seizure-like activity. All other systems negative. PAST MEDICAL HISTORY Diagnosis Date HTN (hypertension) Hypercholesterolemia PAST SURGICAL HISTORY Procedure Laterality Date BREAST LUMPECTOMY HX left breast CORRECTION OF BUNION right foot HYSTERECTOMY HX ALLERGIES Tylenol [Acetaminophen] MEDICATIONS alendronate (FOSAMAX) 70 mg tablet TAKE 1 TABLET BY MOUTH EVERY WEEK ON AN EMPTY STOMACH DO NOT LIE DOWN FOR 30MIN [id number] 1-50-2.5-25-50 mg cap Take by mouth once daily. lisinopril (ZESTRIL, PRINIVIL) 20 mg tablet Take 1 tablet by mouth once daily. rosuvastatin (CRESTOR) 10 mg tablet TAKE 1 TABLET BY MOUTH EVERYDAY AT BEDTIME metoprolol succinate ER (TOPROL XL) 25 mg 24 hr tablet Take 1 tablet by mouth once daily. Zinc 50 mg tab Take 1 tablet by mouth once daily. ascorbic acid (CODY-C ORAL) Take by mouth. ZINC ACETATE ORAL Take by mouth. SELENIUM ORAL Take by mouth. aspirin, enteric coated (ASPIRIN, ENTERIC COATED) 81 mg EC tablet Take 1 tablet by mouth once daily. Docusate Sodium 100 mg tab Take 100 mg by mouth once daily. psyllium (KONSYL) packet Take 1 Packet by mouth once daily. Magnesium 200 mg tab Take 250 mg by mouth. niacin ER (NIASPAN) 500 mg tablet Take 1 tablet by mouth daily at bedtime. Red Yeast Rice Extract 600 mg cap Take 1 capsule by mouth once daily. [id number] 1,000-230-60 mg cap Take 60 mg by mouth once daily. FAMILY HISTORY Problem Relation Age of Onset Cancer Mother Heart Father Breast Cancer Sister Alzheimer's Disease Sister Social History Tobacco Use Smoking status: Never Smokeless tobacco: Never Substance Use Topics Alcohol use: No Drug use: No PHYSICAL EXAM BP 128/72 Pulse 64 Resp 16 Wt 66.2 kg (146 lb) SpO2 97% BMI 22.87 kg/m General Appearance: well appearing, in no acute distress, alert Pysch: mood and affect broad and appropriate Skin: Skin color, texture, turgor normal for age Head: normocephalic, atraumatic Lymph nodes: No cervical lymphadenopathy Lungs: Lungs clear to auscultation. No wheezing, rhonchi, rales. Heart: RRR without murmur, gallop, or rubs. No ectopy Abdomen: Normal abdominal exam Extremities: No gross deformities, significant edema, skin discoloration, clubbing or cyanosis. Neurological: Gait normal. No focal neurological deficits. Sensation grossly intact. ASSESSMENT/PLAN: 1. Essential hypertension - ICD9: 401.9, ICD10: I10 (primary diagnosis) - Controlled - Continue current medications - Recommend home blood pressure monitoring, to bring results to next visit - Encouraged sodium restriction, DASH or Mediterranean diet - Recommend regular aerobic exercise - METOPROLOL SUCCINATE ER 25 MG TABLET,EXTENDED RELEASE 24 HR - BASIC METABOLIC PNL 2. Mixed hyperlipidemia - ICD9: 272.2, ICD10: E78.2 - Controlled - Continue current medications - Counseled on healthy diet and regular exercise - BASIC METABOLIC PNL 3. Osteopenia of multiple sites - ICD9: 733.90, ICD10: M85.89 - continue tx with alendronate (Fosamax) - Reviewed the need for Calcium and Vitamin D supplements and weight bearing exercise as tolerated - BASIC METABOLIC PNL 4. Serum calcium elevated - ICD9: 275.42, ICD10: E83.52 Mildly elevated at prior visit, will recheck to see if this is still present and needs explored further - BASIC METABOLIC PNL Prescription instructions reviewed with patient as applicable. Potential red flag symptoms discussed with the patient. Reviewed appropriate action plan to take if red flag symptoms occur. Patient agreeable to treatment plan. Cristel Plummer PA-C Medical Decision Making: Problems: Moderate: 2+ stable chronic illnesses Data: Unique test(s) ordered: 1 Risk: Moderate: Drug management Medical Decision Making Level: 4 - Moderate documented in this encounter [facility] 03-10-2023 History of Present illness Narrative Images from the original note were not included. This note was created using [employer]. Subjective Erinn Benson is a 73 year old female. HPI 73-year-old female presents for rash on right thigh. Patient states she noticed it on February 22. She states it started as a small centralized lesion and has now grown larger. She states it was warm and hot, but this is not improved. It is not itchy or painful. No numbness or tingling in the leg. She states that she is outside a lot. She had 2 tick bites several months ago, but these were on her neck and arm. She did notice a tick bite on her thigh. She denies any fevers, vision changes, headaches, dizziness. PAST MEDICAL HISTORY Diagnosis Date HTN (hypertension) Hypercholesterolemia PAST SURGICAL HISTORY Procedure Laterality Date BREAST LUMPECTOMY HX left breast CORRECTION OF BUNION right foot HYSTERECTOMY HX ALLERGIES Tylenol [Acetaminophen] MEDICATIONS alendronate (FOSAMAX) 70 mg tablet TAKE 1 TABLET BY MOUTH EVERY WEEK ON AN EMPTY STOMACH DO NOT LIE DOWN FOR 30MIN [id number] 1-50-2.5-25-50 mg cap Take by mouth once daily. lisinopril (ZESTRIL, PRINIVIL) 20 mg tablet Take 1 tablet by mouth once daily. rosuvastatin (CRESTOR) 10 mg tablet TAKE 1 TABLET BY MOUTH EVERYDAY AT BEDTIME metoprolol succinate ER (TOPROL XL) 25 mg 24 hr tablet Take 1 tablet by mouth once daily. Zinc 50 mg tab Take 1 tablet by mouth once daily. ascorbic acid (CODY-C ORAL) Take by mouth. ZINC ACETATE ORAL Take by mouth. SELENIUM ORAL Take by mouth. aspirin, enteric coated (ASPIRIN, ENTERIC COATED) 81 mg EC tablet Take 1 tablet by mouth once daily. Docusate Sodium 100 mg tab Take 100 mg by mouth once daily. psyllium (KONSYL) packet Take 1 Packet by mouth once daily. Magnesium 200 mg tab Take 250 mg by mouth. niacin ER (NIASPAN) 500 mg tablet Take 1 tablet by mouth daily at bedtime. Red Yeast Rice Extract 600 mg cap Take 1 capsule by mouth once daily. [id number] 1,000-230-60 mg cap Take 60 mg by mouth once daily. doxycycline (VIBRA-TABS) 100 mg tablet Take 1 tablet by mouth twice daily for 14 days. FAMILY HISTORY Problem Relation Age of Onset Cancer Mother Heart Father Breast Cancer Sister Alzheimer's Disease Sister Social History Tobacco Use Smoking status: Never Smokeless tobacco: Never Substance Use Topics Alcohol use: No Drug use: No Review of Systems Constitutional: Negative for chills and fever. HENT: Negative for congestion, ear pain and sore throat. Respiratory: Negative for cough and shortness of breath. Cardiovascular: Negative for chest pain. Gastrointestinal: Negative for diarrhea and vomiting. Skin: Positive for color change and rash. Negative for wound. Objective BP 120/72 Pulse 86 Temp 36.7 C (98 F) Resp 16 Wt 67.6 kg (149 lb) SpO2 97% BMI 23.34 kg/m Physical Exam Vitals and nursing note reviewed. Constitutional: General: She is not in acute distress. Appearance: Normal appearance. She is not toxic-appearing. Cardiovascular: Rate and Rhythm: Normal rate and regular rhythm. Pulmonary: Effort: Pulmonary effort is normal. Breath sounds: Normal breath sounds. Skin: General: Skin is warm and dry. Findings: Erythema and rash present. Comments: Bull's-eye rash noted over right thigh. It has dark red/purple center with some clearing around it and then a another erythematous ring. No lymphatic streaking. Nontender. Normal sensation. No fluctuance or abscess. Neurological: Mental Status: She is alert. Assessment and Plan ASSESSMENT/PLAN: 1. Erythema migrans - ICD9: 529.1, ICD10: K14.1 (primary diagnosis) -Suspect erythema migrans rash based on exam. We will treat for Lyme. -Rx for doxycycline x14 days -Recommend follow-up with PCP to ensure resolution. -Given red flag symptoms and when to go to ER. 2. Rash - ICD9: 782.1, ICD10: R21 -See above Diagnosis and treatment plan were discussed and questions were answered to the patient's satisfaction. Pt acknowledged understanding of concepts and follow up plan. Specific signs and symptoms that would indicate the need for higher level of care were discussed in detail warranting prompt ER evaluation. JIMI Ortiz documented in this encounter [facility] 02-17-2023 Miscellaneous Notes Patient has been identified by name and date of : No Patient phones for refill(s): Requested Prescriptions Pending Prescriptions Disp Refills alendronate (FOSAMAX) 70 mg tablet [Pharmacy Med Name: ALENDRONATE SODIUM 70 MG TAB] 12 tablet 0 Sig: TAKE 1 TABLET BY MOUTH EVERY WEEK ON AN EMPTY STOMACH DO NOT LIE DOWN FOR 30MIN Date of last office visit in primary care: 10/01/22 Last 2 Encounter Wt Readings: Date: Wt: 12/20/2022 69.8 kg (153 lb 12.8 oz) 10/01/2022 68 kg (150 lb) Previous labs/tests for medication: Not applicable Please advise. Thank you. Etta Negron LPN documented in this encounter [facility] 12-20-2022 Miscellaneous Notes Addended by: SHERYL SANTIAGO on: 12/20/2022 02:40 PM Modules accepted: Orders documented in this encounter [facility] 12-20-2022 History of Present illness Narrative Images from the original note were not included. Subjective HPI Erinn Benson is a 72 year old female who presents wit two tick bites, one on her neck and one on her chest wall. She noticed these after hunting [place] mushrooms on Tuesday. Ticks were removed with tweezers when found. She denies pain, rash, or fever. She applied peroxide and drawing salve after removing ticks. Review of Systems Constitutional: Negative for chills and fever. Respiratory: Negative. Cardiovascular: Negative. Musculoskeletal: Negative for myalgias. Skin: Negative for itching and rash. BP 142/94 Pulse 69 Temp 36.7 C (98.1 F) Resp 18 Wt 69.8 kg (153 lb 12.8 oz) SpO2 95% BMI 24.09 kg/m PAST MEDICAL HISTORY Diagnosis Date HTN (hypertension) Hypercholesterolemia PAST SURGICAL HISTORY Procedure Laterality Date BREAST LUMPECTOMY HX left breast CORRECTION OF BUNION right foot HYSTERECTOMY HX ALLERGIES Tylenol [Acetaminophen] MEDICATIONS alendronate (FOSAMAX) 70 mg tablet TAKE 1 TABLET BY MOUTH EVERY WEEK ON AN EMPTY STOMACH DO NOT LIE DOWN FOR 30MIN [id number] 1-50-2.5-25-50 mg cap Take by mouth once daily. lisinopril (ZESTRIL, PRINIVIL) 20 mg tablet Take 1 tablet by mouth once daily. rosuvastatin (CRESTOR) 10 mg tablet TAKE 1 TABLET BY MOUTH EVERYDAY AT BEDTIME metoprolol succinate ER (TOPROL XL) 25 mg 24 hr tablet Take 1 tablet by mouth once daily. Zinc 50 mg tab Take 1 tablet by mouth once daily. ascorbic acid (CODY-C ORAL) Take by mouth. ZINC ACETATE ORAL Take by mouth. SELENIUM ORAL Take by mouth. aspirin, enteric coated (ASPIRIN, ENTERIC COATED) 81 mg EC tablet Take 1 tablet by mouth once daily. Docusate Sodium 100 mg tab Take 100 mg by mouth once daily. psyllium (KONSYL) packet Take 1 Packet by mouth once daily. Magnesium 200 mg tab Take 250 mg by mouth. niacin ER (NIASPAN) 500 mg tablet Take 1 tablet by mouth daily at bedtime. Red Yeast Rice Extract 600 mg cap Take 1 capsule by mouth once daily. gamqf-zw-3-oks-mdm-egkulnx-ast 1,000-230-60 mg cap Take 60 mg by mouth once daily. FAMILY HISTORY Problem Relation Age of Onset Cancer Mother Heart Father Breast Cancer Sister Alzheimer's Disease Sister Social History Tobacco Use Smoking status: Never Smokeless tobacco: Never Substance Use Topics Alcohol use: No Drug use: No Objective Physical Exam Vitals and nursing note reviewed. Constitutional: Appearance: Normal appearance. Neck: Cardiovascular: Rate and Rhythm: Normal rate and regular rhythm. Heart sounds: Normal heart sounds. Pulmonary: Effort: Pulmonary effort is normal. No respiratory distress. Breath sounds: Normal breath sounds. No wheezing or rales. Chest: Lymphadenopathy: Cervical: No cervical adenopathy. Skin: General: Skin is warm and dry. Capillary Refill: Capillary refill takes less than 2 seconds. Findings: Erythema present. No rash. Neurological: Mental Status: She is alert. ASSESSMENT/PLAN: 1. Tick bite, unspecified site, initial encounter - ICD9: 919.4, E906.4, ICD10: W57.XXXA - doxycyline as prescribed. - keep sites clean and dry, monitor for signs of infection. - Follow-up with your PCP in 3-5 days if symptoms have not improved or sooner if symptoms worsen - Discussed red flags and need for immediate medical evaluation if any occur. - Discussed supportive care treatment with fluids, rest and analgesia. - Discussed expected course of illness Sheryl Santiago APRN.DAVE documented in this encounter [facility] 12-20-2022 Instructions Sheryl Santiago APRN.CNP - 12/20/2022 1:27 PM EDT ASSESSMENT/PLAN: 1. Tick bite, unspecified site, initial encounter - ICD9: 919.4, E906.4, ICD10: W57.XXXA - doxycyline as prescribed. - keep sites clean and dry, monitor for signs of infection. - Follow-up with your PCP in 3-5 days if symptoms have not improved or sooner if symptoms worsen - Discussed red flags and need for immediate medical evaluation if any occur. - Discussed supportive care treatment with fluids, rest and analgesia. - Discussed expected course of illness Sheryl Santiago APRN.CNP Avoiding Tick Bites How can I avoid tick bites? If you are planning an outdoor activity, especially those in a heavily wooded area, it is important to follow a few simple precautions to protect yourself from tick bites. Wear long sleeved, light-colored clothing, with tightly woven fabric. This gives ticks less area to target and allows you to see ticks on your clothing. When traveling through the [place] or grassy [place], stay near the center of the trails. At home, make sure that you keep your lawn mowed and bushes and trees trimmed as short as possible. If you choose to apply tick repellents, such as those containing DEET, try to avoid spraying them directly to your bare skin. (high concentrations of DEET may have harmful effects on the nervous system.) Apply the spray to your clothing, socks, shoes, tents and backpacks. When returning from the outdoors, check for ticks. Be especially observant of hair, body folds, ears, underarms and the back. Check your clothes and gear for ticks and wash these items immediately. What if I have been bitten by a tick? If you discover a tick, remove it immediately. The longer the tick feeds, the greater chance that it can transmit its bacteria to you. The easiest removal method is to use a pair of tweezers, grasp the tick as close to your skin as possible, and gently pull the tick off. Then, thoroughly wash your hands and the bite area with rubbing alcohol to prevent transmission to other areas of your body. When should I call the doctor? It is best to wait and see whether you develop any signs or symptoms. If a large red rufina forms around the tick bite or if you develop fever, flu-like symptoms, rash, or more severe illness, contact your doctor right away. Your doctor can determine whether these symptoms might be caused by a tick-borne disease, and whether antibiotics will be needed. Is there a vaccine for preventing tick-borne disease in humans? Currently there are vaccines being tested, but there are no guarantees that they will be effective. The best option is to take precautions so that tick bites do not occur in the first place. Early Signs and Symptoms (3 to 30 days after tick bite) Fever, chills, headache, fatigue, muscle and joint aches, and swollen lymph nodes Erythema migrans (EM) rash: Occurs in approximately 70 to 80 percent of infected persons Begins at the site of a tick bite after a delay of 3 to 30 days (average is about 7 days) Expands gradually over a period of days reaching up to 12 inches or more (30 cm) across May feel warm to the touch but is rarely itchy or painful Sometimes clears as it enlarges, resulting in a target or bull's-eye appearance May appear on any area of the body Later Signs and Symptoms (days to months after tick bite) Severe headaches and neck stiffness Additional EM rashes on other areas of the body Arthritis with severe joint pain and swelling, particularly the knees and other large joints. Facial or Trotter's palsy (loss of muscle tone or droop on one or both sides of the face) Intermittent pain in tendons, muscles, joints, and bones Heart palpitations or an irregular heart beat (Lyme carditis) Episodes of dizziness or shortness of breath Inflammation of the brain and spinal cord Nerve pain Shooting pains, numbness, or tingling in the hands or feet Problems with short-term memory documented in this encounter [facility] 12-20-2022 Miscellaneous Notes Patient's daughter calling to ask if PCP has addressed patient's request. See previous note. States mother may still have piece of tick embedded in site on neck. Advised [facility] to [facility]. She is agreeable and will contact her mother. Kiara Vogel RN Pt calls to report that she had two ticks after mushroom hunting yesterday. One on her neck and the other on her right side. Pt reports her had to pull them off so they were attached. Pt reports she had heard that you can get a one dose of atb as a preventative. Pt is asking if provider can send rx to pharmacy. Please review and advise. Jenni Diaz LPN documented in this encounter [facility] 10-11-2022 Miscellaneous Notes Patient notified. ----- Message from Jemma Werner APRN.CNP sent at 10/11/2022 3:09 PM EST ----- Please let patient know there was improvement in her bone density from 2019 but still with a high risk for hip fracture. She has been on alendronate for 5 years, but with her fracture risk, I would like her to continue her alendronate for now as long as she is tolerating the medication. Take care Jemma Werner APRN.CNP documented in this encounter [facility] 10-07-2022 Miscellaneous Notes Patient notified and number given to schedule. Please let patient know she needs additional views of her right breast to further evaluate an asymmetrical area. Thank you Jemma Werner APRN.CNP documented in this encounter [facility] 10-07-2022 Miscellaneous Notes October 07, 2022 PID: [id number] Erinn Benson [address] [place] [address] Dear Ms. Benson, Your recent breast imaging exam on 10/06/2022 showed a possible finding that requires additional imaging studies for a complete evaluation. Most such findings are probably benign (not cancer). Your mammogram demonstrates that you have dense breast tissue, which could hide abnormalities. Dense breast tissue, in and of itself, is a relatively common condition. Therefore, this information is not provided to cause undue concern; rather, it is to raise your awareness and promote discussion with your health care provider regarding the presence of dense breast tissue in addition to other risk factors. If you have a healthcare provider who ordered/prescribed your screening mammogram: Please call [phone] or EXT: [phone] to schedule an appointment for your additional imaging (if you have not already done so). If you DO NOT have a healthcare provider (ie you did not have an order/prescription for your screening mammogram): Please call to schedule an appointment for your additional imaging (if you have not already done so). You must have an order/prescription from your physician when calling to schedule your appointment. If your order/prescription is not electronic, you must bring the hard copy with you on the day of your exam to avoid delays. Your imaging studies and reports are kept on file at [facility] as part of your permanent medical record, and are available for your continuing care. Thank you for allowing us to help in meeting your health care needs. Sincerely, Dr. Valero Interpreting Radiologist [facility] (Additional imaging) documented in this encounter [facility] 10-01-2022 History of Present illness Narrative Reason for Visit Patient presents with: F/U 6 months Erinn Benson is a 72 year old female who presents here today for Above Complaints.. Health Maintenance COVID-19 VACCINE(1) DTAP,TDAP,TD(1 - Tdap) MAMMOGRAM ADVANCE DIRECTIVE DISCUSSION DEPRESSION ASSESSMENT HPI Reviewed blood work for the patient, her tgs are elevated. She is due for her bone density, she is on the fosamax. She is on calcium pill from [employer].. patient loves a salad and she eats a big one. Did not get it last time also due for mammogram HTN: Compliant with medications. Denies any chest pain, palpitations, or edema. No SOB. Doesn't check BP at home generally. Careful with diet to avoid salt, trying to eat more fruits and vegetables, exercises regularly. She has lost around 7 pounds. Generally patient walks up and down the barn every day. HPL: Reviewed test results with patient , takes medications regularly , does not report side effects. Conscious to avoid red meats, full fat dairy and its by products. Exercising 3 to 5 times a week. Cholesterol, Total (mg/dL) Date Value 09/27/2022 166 10/03/2021 160 12/04/2020 155 HDL Cholesterol (mg/dL) Date Value 09/27/2022 40 10/03/2021 38 12/04/2020 45 LDL Cholesterol (mg/dL) Date Value 09/27/2022 87 10/03/2021 93 12/04/2020 84 Triglyceride (mg/dL) Date Value 09/27/2022 195 10/03/2021 144 12/04/2020 131 No problem-specific Assessment & Plan notes found for this encounter. PAST MEDICAL HISTORY Diagnosis Date HTN (hypertension) Hypercholesterolemia PAST SURGICAL HISTORY Procedure Laterality Date BREAST LUMPECTOMY HX left breast CORRECTION OF BUNION right foot HYSTERECTOMY HX FAMILY HISTORY Problem Relation Age of Onset Cancer Mother Heart Father Breast Cancer Sister Alzheimer's Disease Sister Social History Tobacco Use Smoking status: Never Smokeless tobacco: Never Substance Use Topics Alcohol use: No Drug use: No Past medical history, appointments, medications, allergies reviewed. Pertinent Lab/Diagnostic Studies are reviewed and discussed today Current Outpatient Medications: rosuvastatin (CRESTOR) 10 mg tablet alendronate (FOSAMAX) 70 mg tablet metoprolol succinate ER (TOPROL XL) 25 mg 24 hr tablet Zinc 50 mg tab lisinopril (ZESTRIL, PRINIVIL) 20 mg tablet ascorbic acid (CODY-C ORAL) ZINC ACETATE ORAL SELENIUM ORAL aspirin, enteric coated (ASPIRIN, ENTERIC COATED) 81 mg EC tablet Docusate Sodium (STOOL SOFTENER) 100 mg tab psyllium (KONSYL) packet Magnesium 200 mg tab niacin ER (NIASPAN) 500 mg tablet Red Yeast Rice Extract 600 mg cap [id number]-[id number]-ast (MEGARED OMEGA-3 KRILL OIL) 1,000-230-60 mg cap Review of Systems CONSTITUTIONAL: No fevers, chills night sweats, unintended weight loss CARDIOVASCULAR: No chest pain, dyspnea, palpitations, orthopnea, PND, ankle edema. PULM: No dyspnea, unexplained cough. GI: No dysphagia/odynophagia, problematic reflux, constipation, diarrhea, changes in stool habits, hematochezia, melena. : No new urinary complaints, including dysuria, gross hematuria or pyuria. NEURO: No new balance problems, peripheral weakness/paresthesias or numbness of concern. Physical Exam BP 126/76 (BP Site: Left Arm, BP Position: Sitting, BP Cuff Size: Regular Adult) Pulse 65 Temp 36.7 C (98.1 F) Resp 12 Ht 170.2 cm (5' 7) Wt 68 kg (150 lb) SpO2 98% BMI 23.49 kg/m General appearance: Well appearing, alert, in no acute distress, well nourished. Skin: Skin color, texture, turgor normal, no suspicious rashes or lesions Head: Normocephalic, no masses, lesions, tenderness or abnormalities Eyes: Anicteric sclera. Pupils are equally round and reactive to light. Extraocular movements are intact. Lungs: Lungs clear to auscultation. No wheezing, rhonchi, rales Heart: RRR without murmur, gallop, or rubs. Extremities: No deformities, edema, skin discoloration, clubbing or cyanosis. Good capillary refill. ASSESSMENT/PLAN: 1. Osteoporosis, unspecified osteoporosis type, unspecified pathological fracture presence - ICD9: 733.00, ICD10: M81.0 (primary diagnosis) - Reviewed the need for Calcium and Vitamin D supplements and weight bearing exercise as tolerated 2. Encounter for screening mammogram for malignant neoplasm of breast - ICD9: V76.12, ICD10: Z12.31 - Encouraged monthly BSE - Follow up for annual exam in one year. - ESPERANZA SCREENING 3. Essential hypertension - ICD9: 401.9, ICD10: I10 - good control - Recommended regular aerobic exercise. - Recommend home blood pressure monitoring, to bring results in on next visit - Goal of BP <130/80 - LISINOPRIL 20 MG TABLET 4. Mixed hyperlipidemia - ICD9: 272.2, ICD10: E78.2 - good control - Continue current medication. 5. Osteoporosis without current pathological fracture, unspecified osteoporosis type - ICD9: 733.00, ICD10: M81.0 - Reviewed the need for Calcium and Vitamin D supplements and weight bearing exercise as tolerated Mark Yeager MD documented in this encounter [facility] 09-01-2022 Miscellaneous Notes Patient has been identified by name and date of : Yes, Provider Dr. Yeager Date 09/01/22 Time 9:16 am Pharmacy phones for refill(s): Requested Prescriptions Pending Prescriptions Disp Refills rosuvastatin (CRESTOR) 10 mg tablet [Pharmacy Med Name: ROSUVASTATIN CALCIUM 10 MG TAB] 90 tablet 3 Sig: TAKE 1 TABLET BY MOUTH EVERYDAY AT BEDTIME Date of last office visit in primary care: 04/05/22 next apt 10/01/22 Last 2 Encounter Wt Readings: Date: Wt: 04/05/2022 70.8 kg (156 lb) 02/10/2022 71.2 kg (157 lb) Previous labs/tests for medication: Cholesterol: HDL Cholesterol (mg/dL) Date Value 10/03/2021 38 LDL Cholesterol (mg/dL) Date Value 10/03/2021 93 ALT (U/L) Date Value 10/03/2021 23 Non HDL Cholesterol (mg/dL) Date Value 10/03/2021 122 Thank you. Bria Jean LPN documented in this encounter [facility] 08-17-2022 Miscellaneous Notes Patient has been identified by name and date of : No Patient phones for refill(s): Requested Prescriptions Pending Prescriptions Disp Refills alendronate (FOSAMAX) 70 mg tablet [Pharmacy Med Name: ALENDRONATE SODIUM 70 MG TAB] 12 tablet 3 Sig: TAKE 1 TABLET BY MOUTH EVERY WEEK ON AN EMPTY STOMACH DO NOT LIE DOWN FOR 30MIN Date of last office visit in primary care: 04/05/2022 Last 2 Encounter Wt Readings: Date: Wt: 04/05/2022 70.8 kg (156 lb) 02/10/2022 71.2 kg (157 lb) Previous labs/tests for medication: Not applicable Please advise. Thank you. Etta Negron LPN documented in this encounter [facility] 04-05-2022 History of Present illness Narrative Reason for Visit Patient presents with: F/U 6 months Erinn Benson is a 72 year old female who presents here today for Above Complaints.. Health Maintenance COVID-19 VACCINE(1) DTAP,TDAP,TD(1 - Tdap) ADVANCE DIRECTIVE DISCUSSION MAMMOGRAM HPI HTN: Compliant with medications. Denies any chest pain, palpitations, or edema. No SOB. Doesn't check BP at home generally. Careful with diet to avoid salt, trying to eat more fruits and vegetables, exercises regularly. HPL: Reviewed test results with patient , takes medications regularly , does not report side effects. Conscious to avoid red meats, full fat dairy and its by products. Exercising 3 to 5 times a week. Bone density :last one was in 2019, we need to get it done now. No problem-specific Assessment & Plan notes found for this encounter. PAST MEDICAL HISTORY Diagnosis Date HTN (hypertension) Hypercholesterolemia PAST SURGICAL HISTORY Procedure Laterality Date BREAST LUMPECTOMY HX left breast CORRECTION OF BUNION right foot HYSTERECTOMY HX FAMILY HISTORY Problem Relation Age of Onset Cancer Mother Heart Father Breast Cancer Sister Alzheimer's Disease Sister Social History Tobacco Use Smoking status: Never Smokeless tobacco: Never Substance Use Topics Alcohol use: No Drug use: No Past medical history, appointments, medications, allergies reviewed. Pertinent Lab/Diagnostic Studies are reviewed and discussed today Current Outpatient Medications: metoprolol succinate ER (TOPROL XL) 25 mg 24 hr tablet Zinc 50 mg tab lisinopril (ZESTRIL, PRINIVIL) 20 mg tablet alendronate (FOSAMAX) 70 mg tablet rosuvastatin (CRESTOR) 10 mg tablet ascorbic acid (CODY-C ORAL) ZINC ACETATE ORAL SELENIUM ORAL aspirin, enteric coated (ASPIRIN, ENTERIC COATED) 81 mg EC tablet Docusate Sodium (STOOL SOFTENER) 100 mg tab psyllium (KONSYL) packet Magnesium 200 mg tab niacin ER (NIASPAN) 500 mg tablet Red Yeast Rice Extract 600 mg cap akugy-rz-2-ggf-obw-ulwyepc-ast (MEGARED OMEGA-3 KRILL OIL) 1,000-230-60 mg cap Review of Systems CONSTITUTIONAL: No fevers, chills night sweats, unintended weight loss CARDIOVASCULAR: No chest pain, dyspnea, palpitations, orthopnea, PND, ankle edema. PULM: No dyspnea, unexplained cough. GI: No dysphagia/odynophagia, problematic reflux, constipation, diarrhea, changes in stool habits, hematochezia, melena. : No new urinary complaints, including dysuria, gross hematuria or pyuria. NEURO: No new balance problems, peripheral weakness/paresthesias or numbness of concern. Physical Exam BP 110/64 (BP Site: Left Arm, BP Position: Sitting, BP Cuff Size: Large Adult) Pulse 75 Temp 37.2 C (99 F) Resp 12 Ht 170.2 cm (5' 7) Wt 70.8 kg (156 lb) SpO2 98% BMI 24.43 kg/m General appearance: Well appearing, alert, in no acute distress, well nourished. Skin: Skin color, texture, turgor normal, no suspicious rashes or lesions Head: Normocephalic, no masses, lesions, tenderness or abnormalities Eyes: Anicteric sclera. Pupils are equally round and reactive to light. Extraocular movements are intact. Lungs: Lungs clear to auscultation. No wheezing, rhonchi, rales Heart: RRR without murmur, gallop, or rubs. Extremities: No deformities, edema, skin discoloration, clubbing or cyanosis. Good capillary refill. ASSESSMENT/PLAN: 1. Essential hypertension - ICD9: 401.9, ICD10: I10 (primary diagnosis) Bp is well controlled. - METOPROLOL SUCCINATE ER 25 MG TABLET,EXTENDED RELEASE 24 HR 2. Dysuria - ICD9: 788.1, ICD10: R30.0 - URINALYSIS, WITH MICROSCOPIC 3. Age-related osteoporosis without current pathological fracture - ICD9: 733.01, ICD10: M81.0 - DXA-AXIAL SKELETON 4. Mixed hyperlipidemia - ICD9: 272.2, ICD10: E78.2 Recheck in 6 months - LIPID PANEL BASIC Mark Yeager MD documented in this encounter [facility] 02-10-2022 Miscellaneous Notes Saw her today and sent her the medication. Protocol recommends see provider in 24 hours. Scheduled same day appt. Reason for Disposition Pain or burning with passing urine Answer Assessment - Initial Assessment Questions 1. COLOR of URINE: Bright red blood in urine, tea colored urine. 2. ONSET: Noticed about 2 hours ago. 3. EPISODES: At least 10 times. 4. PAIN with URINATION: Pain with urination, moderate. 5. FEVER: No 6. ASSOCIATED SYMPTOMS: Urgency. Frequency. No fever. No flank pain. No pelvic pain. 7. OTHER SYMPTOMS: No other symptoms. 8. : No Protocols used: URINE - BLOOD IN-ADULT- documented in this encounter [facility] 02-10-2022 History of Present illness Narrative Reason for Visit Patient presents with: Established Patient: blodd in urine this AM Erinn Benson is a 72 year old female who presents here today for Above Complaints.. Health Maintenance COVID-19 VACCINE(1) DTAP,TDAP,TD(1 - Tdap) DEPRESSION SCREENING ADVANCE DIRECTIVE DISCUSSION BP CONTROLLED (<130/80) MAMMOGRAM HPI Blood in her urine today morning, may be an hour and a half before. This time it just feels like she has an urgency of urine no pain or burning of urine. She goes in and still feels the need to go. Had a fall from the dogs yanking her but thankfully did not break a bone, she landed on her dogs and then on the asphalt. No problem-specific Assessment & Plan notes found for this encounter. PAST MEDICAL HISTORY Diagnosis Date HTN (hypertension) Hypercholesterolemia PAST SURGICAL HISTORY Procedure Laterality Date BREAST LUMPECTOMY HX left breast CORRECTION OF BUNION right foot HYSTERECTOMY HX FAMILY HISTORY Problem Relation Age of Onset Cancer Mother Heart Father Breast Cancer Sister Alzheimer's Disease Sister Social History Tobacco Use Smoking status: Never Smoker Smokeless tobacco: Never Used Substance Use Topics Alcohol use: No Drug use: No Past medical history, appointments, medications, allergies reviewed. Pertinent Lab/Diagnostic Studies are reviewed and discussed today Current Outpatient Medications: metoprolol succinate ER (TOPROL XL) 25 mg 24 hr tablet Zinc 50 mg tab lisinopril (ZESTRIL, PRINIVIL) 20 mg tablet alendronate (FOSAMAX) 70 mg tablet rosuvastatin (CRESTOR) 10 mg tablet ascorbic acid (CODY-C ORAL) ZINC ACETATE ORAL SELENIUM ORAL aspirin, enteric coated (ASPIRIN, ENTERIC COATED) 81 mg EC tablet Docusate Sodium (STOOL SOFTENER) 100 mg tab psyllium (KONSYL) packet Magnesium 200 mg tab niacin ER (NIASPAN) 500 mg tablet Red Yeast Rice Extract 600 mg cap [id number]-[id number]-ast (MEGARED OMEGA-3 KRILL OIL) 1,000-230-60 mg cap Review of Systems CONSTITUTIONAL: No fevers, chills night sweats, unintended weight loss CARDIOVASCULAR: No chest pain, dyspnea, palpitations, orthopnea, PND, ankle edema. PULM: No dyspnea, unexplained cough. GI: No dysphagia/odynophagia, problematic reflux, constipation, diarrhea, changes in stool habits, hematochezia, melena. : No new urinary complaints, including dysuria, gross hematuria or pyuria. NEURO: No new balance problems, peripheral weakness/paresthesias or numbness of concern. Physical Exam BP 108/56 (BP Site: Left Arm, BP Position: Sitting, BP Cuff Size: Large Adult) Pulse 83 Temp 36.7 C (98 F) Resp 12 Ht 170.2 cm (5' 7) Wt 71.2 kg (157 lb) SpO2 97% BMI 24.59 kg/m General appearance: Well appearing, alert, in no acute distress, well nourished. Skin: Skin color, texture, turgor normal, no suspicious rashes or lesions Head: Normocephalic, no masses, lesions, tenderness or abnormalities Eyes: Anicteric sclera. Pupils are equally round and reactive to light. Extraocular movements are intact. Lungs: Lungs clear to auscultation. No wheezing, rhonchi, rales Heart: RRR without murmur, gallop, or rubs. Extremities: No deformities, edema, skin discoloration, clubbing or cyanosis. Good capillary refill. ASSESSMENT/PLAN: 1. Dysuria - ICD9: 788.1, ICD10: R30.0 (primary diagnosis) Gave the patient bactrim. Went over the side effect profile for the drug with the patient, mentioned every one of it , discussed appropriate concerns , alternatives and benefits of the drug. Will change abx as needed when the cultures arrive. - UA DIP, URINE (POC) 2. Urinary tract infection with hematuria, site unspecified - ICD9: 599.0, 599.70, ICD10: N39.0, R31.9 acute - Patient education for prevention given - URINE CULTURE - URINALYSIS, WITH MICROSCOPIC Mark Yeager MD documented in this encounter [facility] 02-28-2017 History of Past i llness Narrative Problem Noted Date Diagnosed Date Resolved Date Osteoporosis without current pathological fracture 02/28/2017 04/01/2023 Last Assessment & Plan: She is taking the fosamax, tolerating it well documented as of this encounter (statuses as of 04/01/2023) [facility]07[facility]10[facility]2017 History of Past illness Narrative* Problem Noted Date Diagnosed Date Resolved Date Osteoporosis without current pathological fracture 02/28/2017 04/01/2023 Last Assessment & Plan: She is taking the fosamax, tolerating it well documented as of this encounter (statuses as of 04/29/2023) [facility]2017 History of Past illness Narrative* Problem Noted Date Diagnosed Date Resolved Date Osteoporosis without current pathological fracture 02/28/2017 04/01/2023 Last Assessment & Plan: She is taking the fosamax, tolerating it well documented as of this encounter (statuses as of 09/23/2023) [address]10-2017 History of Past illness Narrative* Problem Noted Date Diagnosed Date Resolved Date Osteoporosis without current pathological fracture 02/28/2017 04/01/2023 Last Assessment & Plan: She is taking the fosamax, tolerating it well documented as of this encounter (statuses as of 10/03/2023) [address]10-2017 History of Past illness Narrative* Problem Noted Date Diagnosed Date Resolved Date Osteoporosis without current pathological fracture 02/28/2017 04/01/2023 Last Assessment & Plan: She is taking the fosamax, tolerating it well documented as of this encounter (statuses as of 10/20/2023) [facility] Diagnosis Dysuria- Primary Urinary tract infection with hematuria, site unspecified [facility] Diagnosis Encounter for screening mammogram for breast cancer [facility] Diagnosis Essential hypertension- Primary Unspecified essential hypertension Dysuria Age-related osteoporosis without current pathological fracture Senile osteoporosis Mixed hyperlipidemia [facility] Essential hypertension Unspecified essential hypertension Medication management Encounter for long-term (current) use of other medications [facility] Diagnosis Osteoporosis, unspecified osteoporosis type, unspecified pathological fracture presence- Primary Encounter for screening mammogram for malignant neoplasm of breast Other screening mammogram Essential hypertension Unspecified essential hypertension Mixed hyperlipidemia Osteoporosis without current pathological fracture, unspecified osteoporosis type [facility] Diagnosis Abnormal mammogram- Primary Abnormal mammogram, unspecified [facility] Diagnosis Tick bite, unspecified site, initial encounter- Primary [facility] Diagnosis Erythema migrans- Primary Rash Rash and other nonspecific skin eruption [facility] Diagnosis Essential hypertension- Primary Unspecified essential hypertension Mixed hyperlipidemia Osteopenia of multiple sites Serum calcium elevated Hypercalcemia Allergic rhinitis, unspecified seasonality, unspecified trigger documented in this encounter [facility] note* Diagnosis Allergic rhinitis, unspecified seasonality, unspecified trigger [facility] Diagnosis Hypercalcemia- Primary [facility] Diagnosis Medication management Encounter for long-term (current) use of other medications [facility] Diagnosis Essential hypertension- Primary Unspecified essential hypertension Mixed hyperlipidemia Osteopenia of multiple sites Constipation, unspecified constipation type Hypercalcemia documented in this encounter [facility] note* Diagnosis Essential hypertension Unspecified essential hypertension documented in this encounter [facility] note* Diagnosis Essential hypertension- Primary Unspecified essential hypertension Screening for depression Encounter for screening examination for other mental health and behavioral disorders Mixed hyperlipidemia Osteopenia, unspecified location Acute pain of left knee [facility] Diagnosis Annual physical exam- Primary Routine general medical examination at a health care facility Essential hypertension Unspecified essential hypertension Breast cancer screening, high risk patient Screening mammogram for high-risk patient Heart palpitations- Primary Palpitations Osteoporosis without current pathological fracture, unspecified osteoporosis type Essential hypertension Unspecified essential hypertension Need for vaccination Need for prophylactic vaccination and inoculation against unspecified single disease Mixed hyperlipidemia Acute pain of left knee [facility] Diagnosis Annual physical exam- Primary Routine general medical examination at a health care facility Essential hypertension Unspecified essential hypertension Breast cancer screening, high risk patient Screening mammogram for high-risk patient Heart palpitations- Primary Palpitations Osteoporosis without current pathological fracture, unspecified osteoporosis type Essential hypertension Unspecified essential hypertension Need for vaccination Need for prophylactic vaccination and inoculation against unspecified single disease Mixed hyperlipidemia Osteoarthritis of knee, unspecified laterality, unspecified osteoarthritis type documented in this encounter [facility] note* Diagnosis Annual physical exam- Primary Routine general medical examination at a health care facility Essential hypertension Unspecified essential hypertension Breast cancer screening, high risk patient Screening mammogram for high-risk patient Heart palpitations- Primary Palpitations Osteoporosis without current pathological fracture, unspecified osteoporosis type Essential hypertension Unspecified essential hypertension Need for vaccination Need for prophylactic vaccination and inoculation against unspecified single disease Mixed hyperlipidemia Osteoarthritis of knee, unspecified laterality, unspecified osteoarthritis type- Primary [facility] Diagnosis Annual physical exam- Primary Routine general medical examination at a health care facility Essential hypertension Unspecified essential hypertension Breast cancer screening, high risk patient Screening mammogram for high-risk patient Heart palpitations- Primary Palpitations Osteoporosis without current pathological fracture, unspecified osteoporosis type Essential hypertension Unspecified essential hypertension Need for vaccination Need for prophylactic vaccination and inoculation against unspecified single disease Mixed hyperlipidemia Osteoarthritis of knee, unspecified laterality, unspecified osteoarthritis type- Primary [facility] Diagnosis Annual physical exam- Primary Routine general medical examination at a health care facility Essential hypertension Unspecified essential hypertension Breast cancer screening, high risk patient Screening mammogram for high-risk patient Heart palpitations- Primary Palpitations Osteoporosis without current pathological fracture, unspecified osteoporosis type Essential hypertension Unspecified essential hypertension Need for vaccination Need for prophylactic vaccination and inoculation against unspecified single disease Mixed hyperlipidemia Osteoarthritis of knee, unspecified laterality, unspecified osteoarthritis type- Primary [facility] Diagnosis Annual physical exam- Primary Routine general medical examination at a health care facility Essential hypertension Unspecified essential hypertension Breast cancer screening, high risk patient Screening mammogram for high-risk patient Heart palpitations- Primary Palpitations Osteoporosis without current pathological fracture, unspecified osteoporosis type Essential hypertension Unspecified essential hypertension Need for vaccination Need for prophylactic vaccination and inoculation against unspecified single disease Mixed hyperlipidemia Medicare annual wellness visit, subsequent- Primary Routine general medical examination at a health care facility Essential hypertension Unspecified essential hypertension Mixed hyperlipidemia Vitamin D deficiency Unspecified vitamin D deficiency Memory deficits Memory loss [facility] Diagnosis Annual physical exam- Primary Routine general medical examination at a health care facility Essential hypertension Unspecified essential hypertension Breast cancer screening, high risk patient Screening mammogram for high-risk patient Heart palpitations- Primary Palpitations Osteoporosis without current pathological fracture, unspecified osteoporosis type Essential hypertension Unspecified essential hypertension Need for vaccination Need for prophylactic vaccination and inoculation against unspecified single disease Mixed hyperlipidemia Memory deficits- Primary Memory loss [facility] Diagnosis Annual physical exam- Primary Routine general medical examination at a health care facility Essential hypertension Unspecified essential hypertension Breast cancer screening, high risk patient Screening mammogram for high-risk patient Heart palpitations- Primary Palpitations Osteoporosis without current pathological fracture, unspecified osteoporosis type Essential hypertension Unspecified essential hypertension Need for vaccination Need for prophylactic vaccination and inoculation against unspecified single disease Mixed hyperlipidemia Mixed hyperlipidemia [facility] Diagnosis Annual physical exam- Primary Routine general medical examination at a health care facility Essential hypertension Unspecified essential hypertension Breast cancer screening, high risk patient Screening mammogram for high-risk patient Heart palpitations- Primary Palpitations Osteoporosis without current pathological fracture, unspecified osteoporosis type Essential hypertension Unspecified essential hypertension Need for vaccination Need for prophylactic vaccination and inoculation against unspecified single disease Mixed hyperlipidemia Vitamin D deficiency- Primary Unspecified vitamin D deficiency Hypercalcemia Osteoarthritis of knee, unspecified laterality, unspecified osteoarthritis type [facility] Diagnosis Annual physical exam- Primary Routine general medical examination at a health care facility Essential hypertension Unspecified essential hypertension Breast cancer screening, high risk patient Screening mammogram for high-risk patient Heart palpitations- Primary Palpitations Osteoporosis without current pathological fracture, unspecified osteoporosis type Essential hypertension Unspecified essential hypertension Need for vaccination Need for prophylactic vaccination and inoculation against unspecified single disease Mixed hyperlipidemia Age-related osteoporosis without current pathological fracture- Primary Senile osteoporosis Essential (primary) hypertension Unspecified essential hypertension Mixed hyperlipidemia [facility] Diagnosis Annual physical exam- Primary Routine general medical examination at a health care facility Essential hypertension Unspecified essential hypertension Breast cancer screening, high risk patient Screening mammogram for high-risk patient Heart palpitations- Primary Palpitations Osteoporosis without current pathological fracture, unspecified osteoporosis type Essential hypertension Unspecified essential hypertension Need for vaccination Need for prophylactic vaccination and inoculation against unspecified single disease Mixed hyperlipidemia At risk for polypharmacy- Primary Uncontrolled hypertension Unspecified essential hypertension [facility] Diagnosis Annual physical exam- Primary Routine general medical examination at a health care facility Essential hypertension Unspecified essential hypertension Breast cancer screening, high risk patient Screening mammogram for high-risk patient Heart palpitations- Primary Palpitations Osteoporosis without current pathological fracture, unspecified osteoporosis type Essential hypertension Unspecified essential hypertension Need for vaccination Need for prophylactic vaccination and inoculation against unspecified single disease Mixed hyperlipidemia Osteopenia, unspecified location- Primary Mild cognitive impairment Mild cognitive impairment, so stated Sleep apnea, unspecified type Essential hypertension Unspecified essential hypertension documented in this encounter [facility] for referral (narrative)* Diagnostic Procedure Only (Routine) - Pending Review Specialty Diagnoses / Procedures Referred By Arias barcenas Referred To Contact [facility] Diagnoses Encounter for screening mammogram for breast cancer Procedures ESPERANZA SCREENING SCREENING MAMMOGRAPHY BI 2-VIEW BREAST INC Mark Lo MD [address] [place] [address] [facility] [address] [place] [address] Referral ID Status Reason Start Date Expiration Date Visits Requested Visits Authorized [id number] Pending Review Auto-Generat ed Referral 03/24/2022 04/23/2023 1 1 [facility] for referral (narrative)* Diagnostic Procedure Only (Routine) - Pending Review Specialty Diagnoses / Procedures Referred By Arias barcenas Referred To Contact [facility] Diagnoses Encounter for screening mammogram for malignant neoplasm of breast Procedures ESPERANZA SCREENING SCREENING MAMMOGRAPHY BI 2-VIEW BREAST INC Mark Lo MD [address] [place] [address] [facility] [address] [employer] [place] [address] Referral ID Status Reason Start Date Expiration Date Visits Requested Visits Authorized [id number] Pending Review Auto-Generat ed Referral 10/01/2022 10/31/2023 1 1 [facility] for referral (narrative)* Diagnostic Procedure Only (Routine) - Pending Review Specialty Diagnoses / Procedures Referred By Arias barcenas Referred To Contact [facility] Diagnoses Abnormal mammogram Procedures ESPERANZA DIAGNOSTIC RT DIAGNOSTIC MAMMOGRAPHY COMPUTER-AIDED DETCJ Jemma Hannah APRN.WET [employer] SUPERVISOR [address] [place] [address] [facility] [address] [place] [address] Referral ID Status Reason Start Date Expiration Date Visits Requested Visits Authorized [id number] Pending Review Auto-Generat ed Referral 10/07/2022 11/06/2023 1 1 * Diagnostic Procedure Only (Routine) - Pending Review Specialty Diagnoses / Procedures Referred By Contac t Referred To Contact [facility] Diagnoses Abnormal mammogram Procedures US BREAST LTD RT US BREAST UNI REAL TIME WITH IMAGE LIMITED Jemma Werner APRN.CNP [address] [place] [address] [facility] [address] [place] [address] Referral ID Status Reason Start Date Expiration Date Visits Requested Visits Authorized [id number] Pending Review Auto-Generat ed Referral 10/07/2022 11/06/2023 1 1 [facility] for referral (narrative)* Diagnostic Procedure Only (Routine) - Closed Specialty Diagnoses / Procedures Referred By Contac t Referred To Contact XR IMAGING Diagnoses Acute pain of left knee Procedures XR KNEE GENERAL 4V AP BOTH/PA BOTH/LAT/MERC LEFT RADIOLOGIC EXAM KNEE COMPLETE 4/MORE VIEWS Mark Yeager MD [address] [place] [address] [place] [address] Referral ID Status Reason Start Date Expiration Date V isits Requested Visits Authorized [id number] Closed Auto-Generate d Referral 04/03/2024 05/03/2025 1 1 [facility] for visit Narrative* Diagnostic Procedure Only (Routine) - Closed Specialty Diagnoses / Procedures Referred By Contac t Referred To Contact XR IMAGING Diagnoses Acute pain of left knee Procedures XR KNEE GENERAL 4V AP BOTH/PA BOTH/LAT/MERC LEFT RADIOLOGIC EXAM KNEE COMPLETE 4/MORE VIEWS Mark Yeager MD [address] [place] [address] [place] [address] Referral ID Status Reason Start Date Expiration Date V isits Requested Visits Authorized [id number] Closed Auto-Generate d Referral 04/03/2024 05/03/2025 1 1 [facility] Summary Purpose Family History No Family History Records FoundNo Family History Records Found Advance Directives No Advanced Directives Records FoundNo Advanced Directives Records Found Reason for Referral Specialty Diagnoses / Procedures Referred By Contac t Referred To Contact Sports Medicine Diagnoses Acute pain of left knee Procedures CONSULT TO SPORTS MEDICINE OFFICE/OUTPATIENT [facility] 60 MINUTES Mark Yeager MD [address] [place] [address] Referral ID Status Reason Start Date Expiration Date Visits Requested Visits Authorized [id number] Authorized PCP Requested Referral 04/03/2024 04/03/2025 1 1 Specialty Diagnoses / Procedures Referred By Contac t Referred To Contact XR IMAGING Diagnoses Acute pain of left knee Procedures XR KNEE GENERAL 4V AP BOTH/PA BOTH/LAT/MERC LEFT RADIOLOGIC EXAM KNEE COMPLETE 4/MORE VIEWS Mark Yeager MD [address] [place] [address] [place] [address] Referral ID Status Reason Start Date Expiration Date V isits Requested Visits Authorized [id number] Closed Auto-Generate d Referral 04/03/2024 05/03/2025 1 1 Specialty Diagnoses / Procedures Referred By Contac t Referred To Contact Gerontology Diagnoses Memory deficits Procedures CONSULT TO GERIATRICS OFFICE/OUTPATIENT [facility] 60 MINUTES Jemma Werner APRN.CNP [address] [place] [address] Referral ID Status Reason Start Date Expiration Date Visits Requested Visits Authorized [id number] Authorized PCP Requested Referral 07/16/2025 1 1 Additional Source Comments INFORMATION SOURCE (unrecogn ized section and content) DATE CREATED AUTHOR 07/15/2021 [facility] DATE CREATED AUTHOR AUTHOR'S ORGANIZ ATION 05/12/2025 [facility] Source Comments (unrecognize d section and content) In the event this informatio n is protected by the Federal Confidentiality of Alcohol and Drug Abuse Patient Records regulations: The Federal rules restrict any use of the information to criminally investigate or prosecute any alcohol or drug abuse patient.[facility] the event this information is protected by the Federal Confidentiality of Alcohol and Drug Abuse Patient Records regulations: The Federal rules restrict any use of the information to criminally investigate or prosecute any alcohol or drug abuse patient.[facility] the event this information is protected by the Federal Confidentiality of Alcohol and Drug Abuse Patient Records regulations: The Federal rules restrict any use of the information to criminally investigate or prosecute any alcohol or drug abuse patient.[facility] the event this information is protected by the Federal Confidentiality of Alcohol and Drug Abuse Patient Records regulations: The Federal rules restrict any use of the information to criminally investigate or prosecute any alcohol or drug abuse patient.[facility] the event this information is protected by the Federal Confidentiality of Alcohol and Drug Abuse Patient Records regulations: The Federal rules restrict any use of the information to criminally investigate or prosecute any alcohol or drug abuse patient.[facility] the event this information is protected by the Federal Confidentiality of Alcohol and Drug Abuse Patient Records regulations: The Federal rules restrict any use of the information to criminally investigate or prosecute any alcohol or drug abuse patient.[facility] the event this information is protected by the Federal Confidentiality of Alcohol and Drug Abuse Patient Records regulations: The Federal rules restrict any use of the information to criminally investigate or prosecute any alcohol or drug abuse patient.[facility] the event this information is protected by the Federal Confidentiality of Alcohol and Drug Abuse Patient Records regulations: The Federal rules restrict any use of the information to criminally investigate or prosecute any alcohol or drug abuse patient.[facility] HospitalIn the event this information is protected by the Federal Confidentiality of Alcohol and Drug Abuse Patient Records regulations: The Federal rules restrict any use of the information to criminally investigate or prosecute any alcohol or drug abuse patient.[facility] HospitalIn the event this information is protected by the Federal Confidentiality of Alcohol and Drug Abuse Patient Records regulations: The Federal rules restrict any use of the information to criminally investigate or prosecute any alcohol or drug abuse patient.[facility] HospitalIn the event this information is protected by the Federal Confidentiality of Alcohol and Drug Abuse Patient Records regulations: The Federal rules restrict any use of the information to criminally investigate or prosecute any alcohol or drug abuse patient.[facility] HospitalIn the event this information is protected by the Federal Confidentiality of Alcohol and Drug Abuse Patient Records regulations: The Federal rules restrict any use of the information to criminally investigate or prosecute any alcohol or drug abuse patient.[facility] HospitalIn the event this information is protected by the Federal Confidentiality of Alcohol and Drug Abuse Patient Records regulations: The Federal rules restrict any use of the information to criminally investigate or prosecute any alcohol or drug abuse patient.[facility] HospitalIn the event this information is protected by the Federal Confidentiality of Alcohol and Drug Abuse Patient Records regulations: The Federal rules restrict any use of the information to criminally investigate or prosecute any alcohol or drug abuse patient.[facility] HospitalIn the event this information is protected by the Federal Confidentiality of Alcohol and Drug Abuse Patient Records regulations: The Federal rules restrict any use of the information to criminally investigate or prosecute any alcohol or drug abuse patient.[facility] HospitalIn the event this information is protected by the Federal Confidentiality of Alcohol and Drug Abuse Patient Records regulations: The Federal rules restrict any use of the information to criminally investigate or prosecute any alcohol or drug abuse patient.[facility] HospitalIn the event this information is protected by the Federal Confidentiality of Alcohol and Drug Abuse Patient Records regulations: The Federal rules restrict any use of the information to criminally investigate or prosecute any alcohol or drug abuse patient.[facility] HospitalIn the event this information is protected by the Federal Confidentiality of Alcohol and Drug Abuse Patient Records regulations: The Federal rules restrict any use of the information to criminally investigate or prosecute any alcohol or drug abuse patient.[facility] HospitalIn the event this information is protected by the Federal Confidentiality of Alcohol and Drug Abuse Patient Records regulations: The Federal rules restrict any use of the information to criminally investigate or prosecute any alcohol or drug abuse patient.[facility] HospitalIn the event this information is protected by the Federal Confidentiality of Alcohol and Drug Abuse Patient Records regulations: The Federal rules restrict any use of the information to criminally investigate or prosecute any alcohol or drug abuse patient.[facility] HospitalIn the event this information is protected by the Federal Confidentiality of Alcohol and Drug Abuse Patient Records regulations: The Federal rules restrict any use of the information to criminally investigate or prosecute any alcohol or drug abuse patient.[facility] HospitalIn the event this information is protected by the Federal Confidentiality of Alcohol and Drug Abuse Patient Records regulations: The Federal rules restrict any use of the information to criminally investigate or prosecute any alcohol or drug abuse patient.[facility] HospitalIn the event this information is protected by the Federal Confidentiality of Alcohol and Drug Abuse Patient Records regulations: The Federal rules restrict any use of the information to criminally investigate or prosecute any alcohol or drug abuse patient.[facility] HospitalIn the event this information is protected by the Federal Confidentiality of Alcohol and Drug Abuse Patient Records regulations: The Federal rules restrict any use of the information to criminally investigate or prosecute any alcohol or drug abuse patient.[facility] HospitalIn the event this information is protected by the Federal Confidentiality of Alcohol and Drug Abuse Patient Records regulations: The Federal rules restrict any use of the information to criminally investigate or prosecute any alcohol or drug abuse patient.[facility] HospitalIn the event this information is protected by the Federal Confidentiality of Alcohol and Drug Abuse Patient Records regulations: The Federal rules restrict any use of the information to criminally investigate or prosecute any alcohol or drug abuse patient.[facility] HospitalIn the event this information is protected by the Federal Confidentiality of Alcohol and Drug Abuse Patient Records regulations: The Federal rules restrict any use of the information to criminally investigate or prosecute any alcohol or drug abuse patient.[facility] HospitalIn the event this information is protected by the Federal Confidentiality of Alcohol and Drug Abuse Patient Records regulations: The Federal rules restrict any use of the information to criminally investigate or prosecute any alcohol or drug abuse patient.[facility] HospitalIn the event this information is protected by the Federal Confidentiality of Alcohol and Drug Abuse Patient Records regulations: The Federal rules restrict any use of the information to criminally investigate or prosecute any alcohol or drug abuse patient.[facility] HospitalIn the event this information is protected by the Federal Confidentiality of Alcohol and Drug Abuse Patient Records regulations: The Federal rules restrict any use of the information to criminally investigate or prosecute any alcohol or drug abuse patient.[facility] HospitalIn the event this information is protected by the Federal Confidentiality of Alcohol and Drug Abuse Patient Records regulations: The Federal rules restrict any use of the information to criminally investigate or prosecute any alcohol or drug abuse patient.[facility] HospitalIn the event this information is protected by the Federal Confidentiality of Alcohol and Drug Abuse Patient Records regulations: The Federal rules restrict any use of the information to criminally investigate or prosecute any alcohol or drug abuse patient.[facility] HospitalIn the event this information is protected by the Federal Confidentiality of Alcohol and Drug Abuse Patient Records regulations: The Federal rules restrict any use of the information to criminally investigate or prosecute any alcohol or drug abuse patient.[facility] HospitalIn the event this information is protected by the Federal Confidentiality of Alcohol and Drug Abuse Patient Records regulations: The Federal rules restrict any use of the information to criminally investigate or prosecute any alcohol or drug abuse patient.[facility] HospitalIn the event this information is protected by the Federal Confidentiality of Alcohol and Drug Abuse Patient Records regulations: The Federal rules restrict any use of the information to criminally investigate or prosecute any alcohol or drug abuse patient.[facility] HospitalIn the event this information is protected by the Federal Confidentiality of Alcohol and Drug Abuse Patient Records regulations: The Federal rules restrict any use of the information to criminally investigate or prosecute any alcohol or drug abuse patient.[facility] HospitalIn the event this information is protected by the Federal Confidentiality of Alcohol and Drug Abuse Patient Records regulations: The Federal rules restrict any use of the information to criminally investigate or prosecute any alcohol or drug abuse patient.[facility] HospitalIn the event this information is protected by the Federal Confidentiality of Alcohol and Drug Abuse Patient Records regulations: The Federal rules restrict any use of the information to criminally investigate or prosecute any alcohol or drug abuse patient.[facility] Reason for Visit (unrecogniz ed section and content) Reason Comments PT Discharge Specialty Diagnoses / Procedures Referred By Contrandi t Referred To Contact [facility] Diagnoses Osteoarthritis of knee, unspecified laterality, unspecified osteoarthritis type Procedures CONSULT TO PHYSICAL THERAPY PHYSICAL THERAPY EVALUATION HIGH COMPLEX 45 MINS Mark Yeager MD [address] [place] [address] [facility] [place] [address] [place] [address] Referral ID Status Reason Start Date Expiration Date Visits Requested Visits Authorized [id number] Authorized Auto-Generat ed Referral 08/22/2023 08/21/2024 20 20 Reason Comments Physical Therapy Reason Comments Established Patient blodd in urine this AM Reason Comments Hematuria Reason Comments F/U 6 months Reason Comments Refill Request Reason Comments F/U 6 months Reason Comments Results Reason Comments Mammogram Result Call Back Reason Comments Results Reason Comments tick bite Reason Comments Insect Bite Tick bite on R side of neck and R side x1 day Reason Comments Rash red, circular rufina o n right thigh x 7/4 Reason Comments Recheck 6 month follow up Reason Comments F/U 6 months 6 month follow up-HT N Reason Comments 6 mo follow up routine Reason Comments PT Eval Reason Comments Medicare Wellness Exam Reason Comments Orders Reason Onset Date Comments Refill Request 10/05/2024 Reason Comments Results Reason Comments Recheck Reason Comments Medication Follow-up Reason Onset Date Comments Refill Request 03/14/2025 Reason Comments New Patient Evaluation Dx: Memory defici ts [R41.3 (ICD-10-CM)]; abnormal [facility] Care Teams (unrecognized sec tion and content) Logistic Specialist Relationship Specialty Start Date End Date Mark Yeager MD [address] [place] [address] PCP - General Internal Medicine 11/14/15 Logistic Specialist Relationship Specialty Start Date End Date Mark Yeager MD [address] [place] [address] PCP - General Internal Medicine 11/14/15 Logistic Specialist Relationship Specialty Start Date End Date Mark Yeager MD [address] [place] [address] PCP - General Internal Medicine 11/14/15 Logistic Specialist Relationship Specialty Start Date End Date Mark Yeager MD [address] [place] [address] PCP - General Internal Medicine 11/14/15 Logistic Specialist Relationship Specialty Start Date End Date Mark Yeager MD [address] [place] [address] PCP - General Internal Medicine 11/14/15 Logistic Specialist Relationship Specialty Start Date End Date Mark Yeager MD [address] [place] [address] PCP - General Internal Medicine 11/14/15 Logistic Specialist Relationship Specialty Start Date End Date Mark Yeager MD [address] [place] [address] PCP - General Internal Medicine 11/14/15 Logistic Specialist Relationship Specialty Start Date End Date Mark Yeager MD [address] [place] [address] PCP - General Internal Medicine 11/14/15 Logistic Specialist Relationship Specialty Start Date End Date Mark Yeager MD [address] [place] [address] PCP - General Internal Medicine 11/14/15 Logistic Specialist Relationship Specialty Start Date End Date Mark Yeager MD [address] [place] [address] PCP - General Internal Medicine 11/14/15 Logistic Specialist Relationship Specialty Start Date End Date Mark Yeager MD [address] [place] [address] PCP - General Internal Medicine 11/14/15 Logistic Specialist Relationship Specialty Start Date End Date Mark Yeager MD [address] [place] [address] PCP - General Internal Medicine 11/14/15 Logistic Specialist Relationship Specialty Start Date End Date Mark Yeager MD [address] [place] [address] PCP - General Internal Medicine 11/14/15 Logistic Specialist Relationship Specialty Start Date End Date Mark Yeager MD [address] [place] [address] PCP - General Internal Medicine 11/14/15 Logistic Specialist Relationship Specialty Start Date End Date Mark Yeager MD [address] [place] [address] PCP - General Internal Medicine 11/14/15 Logistic Specialist Relationship Specialty Start Date End Date Mark Yeager MD [address] [place] [address] PCP - General Internal Medicine 11/14/15 Logistic Specialist Relationship Specialty Start Date End Date Mark Yeager MD [address] [place] [address] PCP - General Internal Medicine 11/14/15 Logistic Specialist Relationship Specialty Start Date End Date Mark Yeager MD [address] [place] [address] PCP - General Internal Medicine 11/14/15 Logistic Specialist Relationship Specialty Start Date End Date Mark Yeager MD [address] [place] [address] PCP - General Internal Medicine 11/14/15 Logistic Specialist Relationship Specialty Start Date End Date Mark Yeager MD [address] [place] [address] PCP - General Internal Medicine 11/14/15 Logistic Specialist Relationship Specialty Start Date End Date Mark Yeager MD [address] [place] [address] PCP - General Internal Medicine 11/14/15 Logistic Specialist Relationship Specialty Start Date End Date Mark Yeager MD [address] [place] [address] PCP - General Internal Medicine 11/14/15 Logistic Specialist Relationship Specialty Start Date End Date Mark Yeager MD [address] [place] [address] PCP - General Internal Medicine 11/14/15 Logistic Specialist Relationship Specialty Start Date End Date Mark Yeager MD [address] [place] [address] PCP - General Internal Medicine 11/14/15 Logistic Specialist Relationship Specialty Start Date End Date Mark Yeager MD [address] [place] [address] PCP - General Internal Medicine 11/14/15 Logistic Specialist Relationship Specialty Start Date End Date Mark Yeager MD [address] [place] [address] PCP - General Internal Medicine 11/14/15 Cristel Plummer PA-C [address] [place] [id number] Veterinary Parasitologist Family Medicine 07/29/24 Jemma Werner APRN.CNP [address] [place] [address] Veterinary Parasitologist Internal Medicine 07/29/24 Benita Rivas PA-C [address] [place] [address] Veterinary Parasitologist Family Medicine 07/29/24 Logistic Specialist Relationship Specialty Start Date End Date Mark Yeager MD [address] [place] [address] PCP - General Internal Medicine 11/14/15 Cristel Plummer PA-C [address] [place] [id number] Veterinary Parasitologist Family Medicine 07/29/24 Jemma Werner APRN.WET END SUPERVISOR [address] [place] [address] Veterinary Parasitologist Internal Medicine 07/29/24 Benita Rivas PA-C [address] [place] [address] [facility] Logistic Specialist Relationship Specialty Start Date End Date Mark Yeager MD [address] [place] [address] PCP - General Internal Medicine 11/14/15 Jemma Werner [employer] S[employer] PROGRAM TEACHER.WET END SUPERVISOR [address] [place] [address] [facility] Internal Medicine 07/29/24 Logistic Specialist Relationship Specialty Start Date End Date Mark Yeager MD [address] [place] [address] PCP - General Internal Medicine 11/14/15 Jemma Werner, AFTER SCHOOL PROGRAM TEACHER.WET END SUPERVISOR [address] [place] [address] [facility] Internal Medicine 07/29/24 Logistic Specialist Relationship Specialty Start Date End Date Mark Yeager MD [address] [place] [address] PCP - General Internal Medicine 11/14/15 Jemma Werner APRN.WET END SUPERVISOR [address] [place] [address] [facility] Internal Medicine 07/29/24 Logistic Specialist Relationship Specialty Start Date End Date Mark Yeager MD [address] [place], [place] [address] PCP - General Internal Medicine 11/14/15 Jemma Werner APRN.WET END SUPERVISOR [address] [place] [address] [facility] Internal [facility] 07/29/24 FOR RECORDS PERTAINING TO PATIENTS WHO ARE OR HAVE BEEN ENROLLED IN A CHEMICAL DEPENDENCY/SUBSTANCEABUSE PROGRAM, SOME INFORMATION MAY BE OMITTED. This clinical summary was aggregated from multiple sources. Caution should be exercised in using it in the provision of clinical care. This summary normalizes information from multiple sources, and as a consequence, information in this document may materially change the coding, format and clinical context of patient data. In addition, data may be omitted in some cases. CLINICAL DECISIONS SHOULD BE BASED ON THE PRIMARY CLINICAL RECORDS. [employer] provides no warranty or guarantee of the accuracy or completeness of information in this document.
== END | disposition home or self-care (01) ==
PROVIDERS: PCP Family Medicine; Referring Provider Internal Medicine; Visit Provider Internal Medicine
DX: G47.30 Sleep apnea, unspecified (principal)
CPT/HCPCS: 95810